=== PATIENT | female | born 1950 | race Caucasian/White ===

== ENCOUNTER 2021-07-13 21:51 | Emergency (ER) | payer MEDICARE, SELFPAY ==
--- NOTE | ~2021-07-13 | XR_ITS ---
EXAMINATION: XR CHEST CLINICAL INFORMATION: Chest pain COMPARISON: 09/06/2018 TECHNIQUE: Frontal view of the chest was obtained. FINDINGS: Other than hypoinflated lungs, no significant abnormality is noted involving the heart, lungs, mediastinum, bony thorax or soft tissues. XR/XR chest 1V IMPRESSION: No acute intrathoracic disease.
[2021-07-13 22:07] VITALS: BP 128/76; PULSE 68; O2SAT 98
--- NOTE | 2021-07-13 22:08 | ECG_ITS ---
Test Reason : MEDICAL Blood Pressure : / mmHG Vent. Rate : 068 BPM Atrial Rate : 068 BPM P-R Int : 198 ms QRS Dur : 074 ms QT Int : 412 ms P-R-T Axes : 059 -12 084 degrees QTc Int : 438 ms Normal sinus rhythm Low voltage QRS Nonspecific ST and T wave abnormality Abnormal ECG When compared with ECG of 06-SEP-2018 18:43, Nonspecific T wave abnormality no longer evident in Inferior leads ST more depressed Lateral leads Referred By: Jas Pastrana Electronically Signed By:SOFI DAVIS MD
--- NOTE | 2021-07-13 22:10 | ED.CHESTPAIN ---
HPI - Chest Pain General Chief Complaint: Chest Pain Stated Complaint: cp Time Seen by Provider: 07/13/21 22:08 Source: patient and EMS Mode of arrival: EMS Limitations: no limitations and physical limitation History of Present Illness HPI narrative: 70-year-old female brought in by ambulance for evaluation of chest pain. This is a 70-year-old female brought in by EMS patient is somewhat poor historian complained of chest pain started about our ago before arrival to the hospital, pain was retrosternal mid chest, no radiation, pain was constant for 1 hour then pain is gone away now, no other associated symptoms, patient has no chest pain now. Patient normally lives home mostly bed-bound needs help with most of the daily activities. Patient with chronic bilateral lower extremities swelling. patient declined any shortness of breath. Related Data Allergies Allergy/AdvReac Type Severity Reaction Status Date / Time No Known Allergies Allergy Unverified 05/07/20 19:37 [No Known Allergies*] Review of Systems Review of Systems: All other systems are reviewed and are negative Constitutional: Reports as per HPI and Reports no additional constitutional complaints Eyes: Reports as per HPI and Reports no additional eye complaints Reports system reviewed and no additional complaints, except as documented Cardiovascular: Reports as per HPI and Reports no additional cardiovascular complaints Respiratory: Reports as per HPI and Reports no additional respiratory complaints Gastrointestinal: Reports as per HPI and Reports no additional gastrointestinal complaints Genitourinary: Reports no additional female genitourinary complaints Musculoskeletal: Reports no additional musculoskeletal complaints Skin/Breast: Reports system reviewed and no additional complaints, except as docu Psychiatric: Reports no additional psychiatric complaints Endocrine: Reports no additional endocrine complaints Hematologic/Lymphatic: Reports no additional hematologic/lymphatic complaints Allergic/Immunologic: Reports no additional allergic/immunologic complaints Reports system reviewed and no additional complaints, except as documented and Reports Abnormal speech present [facility] Social History Social History Advance Directives: No Advance Directives Information Provided: No Physical Exam Vital Signs: Vital Signs: Last Vital Signs Temp 97.8 F 07/13/21 23:30 Pulse 70 07/13/21 23:30 Resp 18 07/13/21 23:30 BP 121/66 07/13/21 23:30 Pulse Ox 93 07/13/21 23:30 Body Mass Index 43.0 vital signs have been reviewed as appeared to be correct. Blood pressure normal. Heart rate normal. Respiration rate normal. Temperature normal. Oxygen saturation normal. Appearance: Alert. Oriented X3. No acute distress. Head: Normal external exam. Normocephalic. Atraumatic. No Godwin signs noted. No raccoon eyes noted Eyes: PERRLA. EOMI. Conjunctiva and sclera normal. Eyelids normal. ENT: TM's Normal. Pharynx normal. Uvula midline. Moist mucous membranes. No trismus noted. No drooling noted. No muffled voice noted. Neck: Normal inspection. Neck supple. FROM. No adenopathy. Thyroid Normal. No meningeal signs. No neck mass noted. CVS: Normal heart rate and rhythm. Heart sound normal. No murmurs noted. Pulses normal throughout. Respiratory: No respiratory distress. Painless inspiration. Breath sounds normal. No wheezes/rales/rhonchi noted. Chest nontender. No accessory muscle usage noted or decreased air movement noted. Abdomen: Soft and nontender. Bowel sounds normal in all 4 quadrants. No distention noted. No organomegaly noted. No visible injury noted. Back: No CVA tenderness. Full range of motion noted. Skin: Skin warm and dry. Normal skin color. Normal skin turgor. No rashes/lesions/lacerations noted. Extremities: No lower extremity edema. Extremities exhibit normal range of motion. Extremities nontender. Neuro: Oriented X 3. Cranial nerve exam: II-XII are grossly intact No motor deficit. No sensory deficit. Reflexes normal. Course Course Course Narrative: assessment and plan. This is a 70-year-old female came in for complain of epigastric /chest pain. While patient in the emergency department she felt chest pain followed by vomiting patient vomited pieces of chicken ( patient has dinner). Patient after she vomited felt better, no chest pain after that. Patient also has a negative workup for chest pain. Will reassure and discharge the patient to follow-up with PCP. MDM - Chest Pain Medical Records Data Attestation: I reviewed the patient's medical records. Lab Data Attestation: I reviewed the patient's lab results. Result diagrams: 07/13/21 23:37 07/13/21 23:37 Labs: Lab Results 07/13/21 07/13/21 07/13/21 Range/Units 23:37 23:37 23:37 WBC 9.7 (4.8-10.8) X10*3/uL RBC 4.35 (4.20-5.50) X10*6/uL Hgb 13.1 (12.0-16.0) g/dl Hct 41.2 (37.0-47.0) % MCV 94.7 (80.0-98.0) fL MCH 30.1 (27.0-33.0) pg MCHC 31.8 (31.0-35.0) g/dl RDW 14.6 (11.0-16.0) % Plt Count 92 L (160-400) X10*3/uL MPV 10.8 (9.4-12.3) fL Immature Gran % (Auto) Cancelled Neut % (Auto) Cancelled Lymph % (Auto) Cancelled Milam % (Auto) Cancelled Eos % (Auto) Cancelled Baso % (Auto) Cancelled Lymph # (Auto) Cancelled Milam # (Auto) Cancelled Eos # (Auto) Cancelled Baso # (Auto) Cancelled Abs Immat Gran (auto) Cancelled Absolute Neuts (auto) Cancelled Absolute Nucleated RBC 0.000 (0.0-0.012) X10*3/uL Nucleated RBC % (auto) 0.0 (0.0-0.2) /100WBC Neutrophils % (Manual) 57 (45-73) % Band Neutrophils % 3 (3-5) % Lymphocytes % (Manual) 31 (20-40) % Monocytes % (Manual) 6 (2-11) % Basophils % (Manual) 1 (0-2) % Promyelocytes % 2 % Abs Neuts (Manual) 5.8 (2.0-8.3) X10*3/uL Lymphocytes # (Manual) 3.0 (1.2-4.9) X10*3/uL Monocytes # (Manual) 0.6 (0.1-1.2) X10*3/uL Basophils # (Manual) 0.1 (0.0-0.2) X10*3/uL Promyelocytes # 0.2 X10*3/uL Toxic Vacuolation PRESENT WBC Morphology Comment HYPOGRANULAR Platelet Estimate DECREASED (NORMAL) Large Platelets PRESENT Giant Platelets PRESENT Plt Morphology Comment AGRANULAR RBC Morphology NORMAL Ovalocytes 1+ (5-14) /OIF Acanthocytes (Spur) 1+ (0-2) /OIF Sodium 138 (135-145) mmol/L Potassium 4.1 (3.3-5.1) mmol/L Chloride 103 (96-108) mmol/L Carbon Dioxide 25 (22-29) mmol/L Anion Gap 14 (12-20) BUN 19 H (9-16) mg/dL Creatinine 0.77 (0.5-1.4) mg/dL Estim Creat Clear Calc 90.1 Estimated GFR > 60 Random Glucose 169 H (60-115) mg/dL Calcium 9.1 (8.4-10.2) mg/dL Total Bilirubin 0.3 (0.0-1.0) mg/dL Direct Bilirubin 0.2 (0.0-0.5) mg/dL AST 30 (5-31) U/L ALT 22 (0-31) U/L Alkaline Phosphatase 65 (39-117) U/L Troponin I High Sens < 3.5 (<3.5-17.0) ng/L B-Natriuretic Peptide 51 (<100) pg/mL Total Protein 6.1 L (6.5-8.0) g/dL Albumin 3.4 L (3.5-5.0) g/dL Lipase 27 (8-78) U/L COVID-19 (GAYLE) (Negative) COVID-19 Clin Com 07/13/21 07/14/21 Range/Units 23:37 02:54 WBC (4.8-10.8) X10*3/uL RBC (4.20-5.50) X10*6/uL Hgb (12.0-16.0) g/dl Hct (37.0-47.0) % MCV (80.0-98.0) fL MCH (27.0-33.0) pg MCHC (31.0-35.0) g/dl RDW (11.0-16.0) % Plt Count (160-400) X10*3/uL MPV (9.4-12.3) fL Immature Gran % (Auto) Neut % (Auto) Lymph % (Auto) Milam % (Auto) Eos % (Auto) Baso % (Auto) Lymph # (Auto) Milam # (Auto) Eos # (Auto) Baso # (Auto) Abs Immat Gran (auto) Absolute Neuts (auto) Absolute Nucleated RBC (0.0-0.012) X10*3/uL Nucleated RBC % (auto) (0.0-0.2) /100WBC Neutrophils % (Manual) (45-73) % Band Neutrophils % (3-5) % Lymphocytes % (Manual) (20-40) % Monocytes % (Manual) (2-11) % Basophils % (Manual) (0-2) % Promyelocytes % % Abs Neuts (Manual) (2.0-8.3) X10*3/uL Lymphocytes # (Manual) (1.2-4.9) X10*3/uL Monocytes # (Manual) (0.1-1.2) X10*3/uL Basophils # (Manual) (0.0-0.2) X10*3/uL Promyelocytes # X10*3/uL Toxic Vacuolation WBC Morphology Comment Platelet Estimate (NORMAL) Large Platelets Giant Platelets Plt Morphology Comment RBC Morphology Ovalocytes /OIF Acanthocytes (Spur) /OIF Sodium (135-145) mmol/L Potassium (3.3-5.1) mmol/L Chloride (96-108) mmol/L Carbon Dioxide (22-29) mmol/L Anion Gap (12-20) BUN (9-16) mg/dL Creatinine (0.5-1.4) mg/dL Estim Creat Clear Calc Estimated GFR Random Glucose (60-115) mg/dL Calcium (8.4-10.2) mg/dL Total Bilirubin (0.0-1.0) mg/dL Direct Bilirubin (0.0-0.5) mg/dL AST (5-31) U/L ALT (0-31) U/L Alkaline Phosphatase (39-117) U/L Troponin I High Sens < 3.5 (<3.5-17.0) ng/L B-Natriuretic Peptide (<100) pg/mL Total Protein (6.5-8.0) g/dL Albumin (3.5-5.0) g/dL Lipase (8-78) U/L COVID-19 (GAYLE) Negative (Negative) COVID-19 Clin Com See Note Imaging Data Chest x-ray: Radiologist's impression: No acute intrathoracic disease. ECG Data ECG #1: Interpretation: normal sinus rhythm at 68 beats per minute, left axis deviation, normal intervals, nonspecific ST-T changes. Discharge Plan Discharge Clinical Impression: Atypical chest pain, Gastritis Patient Disposition: Home, Self-Care Instructions: Chest Pain (ED) Referrals: Physician,Unknown J [Primary Care Provider] - 2 days
--- NOTE | 2021-07-13 22:58 | PC.NURSE ---
PATIENT CAME IN VOMITED [place] ,DARLEEN ROJAS AWARE ,PATIENT WAS CLEAN UP AND CHANGE INTO HOSPITAL ATTIRE ,EKG WAS OBTAIN .
[2021-07-13 23:30] VITALS: BP 121/66; PULSE 70; RESP 18; TEMP 36.6; O2SAT 93; BMI 43.0
--- NOTE | 2021-07-13 23:37 | PC.NURSE ---
RN receivd from report from Twyla MOREJON upon arrival at 2300. This RN was made aware that the patient presented with chest pain and everything was complete. During chart review this RN was able to confirm that only the EMS report was completed but no triage or additional documentaton; pt with #20 in the left hand placed by clinical coordinator. Triage to be completed. Pt was not noted to be on a quality assurance monitor body or zole. EDT obtained ordered labs and will assist with placing the pt on the quality assurance monitor body. RN will continue to monitor.
[2021-07-13 23:43] LABS: Mean Corpuscular HGB Conc 31.8 g/dl (31.0-35.0); Mean Corpuscular Hemoglobin 30.1 pg (27.0-33.0); PLT CLUMP 1
[2021-07-13 23:45] LABS: Hematocrit 41.2 % (37.0-47.0); Hemoglobin 13.1 g/dl (12.0-16.0); Mean Corpuscular Volume 94.7 fL (80.0-98.0); Mean Platelet Volume 10.8 fL (9.4-12.3); Red Blood Count 4.35 X10*6/uL (4.20-5.50); Red Cell Distribution Width 14.6 % (11.0-16.0); White Blood Count 9.7 X10*3/uL (4.8-10.8)
[2021-07-13 23:48] LABS: Platelet Count 92 X10*3/uL (160-400)
[2021-07-13 23:58] LABS: Alanine Aminotransferase 22 U/L (0-31); Albumin Level 3.4 g/dL (3.5-5.0); Alkaline Phosphatase 65 U/L (39-117); Anion Gap 14 (12-20); Aspartate Amino Transferase 30 U/L (5-31); Bilirubin Direct 0.2 mg/dL (0.0-0.5); Bilirubin Total 0.3 mg/dL (0.0-1.0); Blood Urea Nitrogen 19 mg/dL (9-16); Calcium 9.1 mg/dL (8.4-10.2); Carbon Dioxide 25 mmol/L (22-29); Chloride 103 mmol/L (96-108); Creatinine Clr Calc Pharmacy 90.1; Estimated Glomerular Filt Rate > 60; Glucose Random 169 mg/dL (60-115); Lipase 27 U/L (8-78); Potassium 4.1 mmol/L (3.3-5.1); Sodium 138 mmol/L (135-145); Total Protein 6.1 g/dL (6.5-8.0)
[2021-07-14] LABS: COVID-19 Test Negative (Negative); IDNOW Serial# 9DD0AD1C
[2021-07-14 00:03] LABS: B Type Natriuretic Peptide 51 pg/mL (<100); Troponin-I High Sensitivity < 3.5 ng/L (<3.5-17.0)
[2021-07-14 01:03] LABS: Band Neutrophils Percent 3 % (3-5); Basophils Abs Manual 0.1 X10*3/uL (0.0-0.2); Basophils Percent Manual 1 % (0-2); Lymphocytes Percent Manual 31 % (20-40); Monocytes Absolute Manual 0.6 X10*3/uL (0.1-1.2); Monocytes Percent Manual 6 % (2-11); Neutrophils Absolute Manual 5.8 X10*3/uL (2.0-8.3); Neutrophils Percent Manual 57 % (45-73); Promyelocytes Absolute 0.2 X10*3/uL; Promyelocytes Percent 2 %
[2021-07-14 01:04] LABS: Acanthocytes 1+ (0-2) /OIF; Giant Platelet PRESENT; Large Platelet PRESENT; Ovalocytes 1+ (5-14) /OIF; Platelet Estimate DECREASED (NORMAL); Platelet Morphology Comment AGRANULAR; RBC Morphology NORMAL; Toxic Vacuolation PRESENT
[2021-07-14 01:05] LABS: WBC Morphology Comment HYPOGRANULAR
[2021-07-14] MEDS: ondansetron HCL 4 MG/2 ML VIAL IVPUSH (01:35)
[2021-07-14] MEDS: Famotidine/PF 20 MG/2 ML VIAL IVPUSH (01:35)
--- NOTE | 2021-07-14 02:02 | PC.NURSE ---
Pt given pillows to elevate lower extremeities per request. Pt was previously spoon fed applesauce by this RN and assisted holding the cup while she drank gingerale. Pt repositioned for comfort
[2021-07-14 03:18] LABS: Troponin-I High Sensitivity < 3.5 ng/L (<3.5-17.0)
== END 2021-07-14 05:27 | disposition home or self-care (01) ==
PROVIDERS: Emergency Provider Emergency Medicine
DX: R07.9 Chest pain, unspecified (principal); K29.70 Gastritis, unspecified, without bleeding; Z79.899 Other long term (current) drug therapy; Z20.822 Contact with and (suspected) exposure to COVID-19
CPT/HCPCS: 36415; 71045; 80048; 80076; 83690; 83880; 84484; 85007; 85027; 87635; 93005; 96374; 96375; 99284; J2405

== ENCOUNTER 2021-09-08 17:58 | Inpatient (IN) | payer MEDICARE, SELFPAY ==
[2021-09-08] VITALS (7 sets, daily range): BP systolic 96–159; BP diastolic 60–91; PULSE 79–89; RESP 12–20; TEMP 37.3–38.2; O2SAT 94–97; BMI 43.7
--- NOTE | ~2021-09-08 | CT_ITS ---
EXAMINATION: CT HEAD WITHOUT CONTRAST (STROKE PROTOCOL) CLINICAL INFORMATION: Stroke protocol. Left-sided weakness. COMPARISON: CT brain 09/06/2018. TECHNIQUE: Contiguous axial imaging was performed from the skull base to vertex without intravenous administration of contrast. This CT examination was performed using dose optimization techniques as appropriate, variously including the following: *Automated exposure control *Adjustment of mA and/or kV according to patient size (this includes techniques or standardized protocols for targeted exams where dose is matched to indication/reason for exam; i.e. extremities or head) *Use of iterative reconstruction technique DLP: 1767 mGy-cm FINDINGS: There is no acute intra-axial, extra-axial bleed, masses or midline shift. There is a left occipital lobe hypodensity with extra-axial dilatation likely old insult or infarct. There is left occipital small craniectomy. Also visualized is a old right posterior parietal lobe infarct. There is no acute infarction in evolution. There is no midline shift. There is ex-vacuole dilatation of occipital horn left lateral ventricle. The lateral ventricles are moderately enlarged. The third ventricle is enlarged as well. No abnormality seen in the posterior fossa. Bone windows reveal no calvarial abnormality except for left occipital lobe craniectomy. No scalp soft tissue abnormality or hematoma. Bilateral paranasal sinuses and mastoid air cells are well-aerated. CT/CT head for stroke IMPRESSION: No acute intracranial process seen. There is a encephalomalacia and gliosis in the left occipital lobe and high right posterior parietal lobe from previous insult. Also visualized is left occipital craniectomy changes. The sinuses are clear. Overall no major change from 09/06/2028 CT PET exam. Results were discussed immediately with ED Dr. Parmjit Cam by phone at 6:27 PM .
--- NOTE | 2021-09-08 18:07 | ECG_ITS ---
Test Reason : AMS Blood Pressure : / mmHG Vent. Rate : 080 BPM Atrial Rate : 080 BPM P-R Int : 196 ms QRS Dur : 076 ms QT Int : 386 ms P-R-T Axes : 023 -14 068 degrees QTc Int : 445 ms Normal sinus rhythm Low voltage QRS Nonspecific ST and T wave abnormality Abnormal ECG When compared with ECG of 13-JUL-2021 22:55, No significant change was found Referred By: Favio Cam Electronically Signed By:Jamil Correia
[2021-09-08 18:14] LABS: Glucose, Whole Blood 148 mg/dL (60-115); Prothrombin Time Whole Bld POC 14.2 sec (11.1-13.5); ~PT, ~INR - Anti Coag Clinic 1.2 (0.9-1.1)
--- NOTE | 2021-09-08 18:36 | ED.NEUROSD ---
HPI - Neuro Symptoms/Deficit General Chief Complaint: Stroke Stated Complaint: STROKE/AMS Time Seen by Provider: 09/08/21 18:06 Source: EMS Mode of arrival: EMS Limitations: altered mental status History of Present Illness HPI Narrative: 71 year old female who was brought to the emergency department by ambulance for possible stroke. The patient is altered and not able to give a history, she was able to tell me her name. According to the paramedics, the patient's CANVAS REPAIRER came to the patient's house around 4:00 p.m. and found the patient to be altered, the patient was having left-sided weakness and slurred speech. The paramedics know this patient well states that the patient is altered from her baseline, usually she is awake and alert and able to answer questions. The patient does not have a last known well time. I did evaluate the patient on the senior buyer planner stretcher, the patient is lethargic, she is able to tell me her name, she appears to have right upper extremity weakness compared to the left with swelling of the right upper extremity, she seems to have atrophy your lower extremities and cannot move either her left or right lower extremity. Given these findings, the patient was sent directly to the CT scan to rule out stroke, bleed, mass effect. Related Data Allergies Allergy/AdvReac Type Severity Reaction Status Date / Time No Known Allergies Allergy Unverified 05/07/20 19:37 [No Known Allergies*] Review of Systems Review of Systems: Yes Unobtainable due to mental status [facility] Past Medical History [facility] Narrative: Past medical history: Unknown. Social history: The patient lives at home with CANVAS REPAIRER care. Medical History (Updated 09/08/21 @ 20:46 by Favio Cam MD) Diabetes Social History Social History Patient Tobacco Use Status: Never used Tobacco Use of substances other than those prescribed or required for medical reasons: No Advance Directives: No Advance Directives Information Provided: Yes Physical Exam Vital Signs: Vital Signs: Last Vital Signs Temp 100.7 F H 09/08/21 18:30 Pulse 79 09/08/21 20:03 Resp 14 09/08/21 20:03 BP 101/74 09/08/21 20:03 Pulse Ox 96 09/08/21 20:03 BMI result Body Mass Index 43.7 Const: Other: Patient is lethargic, she was only able to tell me her name and not answer any other questions HENMT: Head: Yes normal to inspection, Yes normocephalic and Yes atraumatic Ears: external ears normal General nose exam: Normal external nose present Face and sinus: Yes normal facial exam Mouth: Normal oral and palatal mucosa present Throat: Yes posterior oropharynx normal Eyes: General: appearance normal, both eyes and all related structures Neck: Neck: Yes normal visual inspection, Yes no lymphadenopathy, Yes trachea midline and Yes supple Chest: Chest palpation & inspection: normal inspection of the chest and normal palpation of entire chest wall Resp: Effort & Inspection: normal respiratory effort and able to speak in complete sentences Auscultation: clear to auscultation bilaterally Cardio: Rate: regular rate Rhythm: regular rhythm Heart sounds: S1 normal heart sound present, S2 normal heart sound present and no murmurs GI: Inspection: Yes normal to inspection Palpation (GI): Soft to palpation, nontender and no guarding Auscultation: normal bowel sounds : General: Yes no CVA tenderness Back/Spine/Pelvis: Back: no CVA tenderness Skin: General skin exam: no rashes or lesions noted Neuro: Other: Patient is oriented to person only, she is lethargic, she can wiggle the fingers of her left hand but not the right, she has limited ability to move her left arm up against gravity, she cannot move her lower extremities against gravity in her lower extremities appear to be atrophied Extrem: Other: Swelling of the right upper extremity compared to the left, the lower extremities Psych: Other: Lethargic, oriented to person only Course Course Course Narrative: 71-year-old female who lives at home with CANVAS REPAIRER care who was last well-known time is unknown, CANVAS REPAIRER found to hurt around 4:00 p.m. altered, lethargic. On presentation to the emergency department the patient was lethargic and can not give me her name only. Her right upper extremity appears to be swollen compared to the left she has no movement of the right arm, she is able to move the fingers of the left hand but not older left hand up against gravity. She also has no movement of her lower extremities and her lower extremities appear to be atrophied suggesting that she has chronic weakness of these extremities. Vital signs revealed that the patient had a fever of 100.4? orally and 100.7? rectally. Blood pressure was elevated at 150 9/71. NIH stroke scale was unable to be obtained since the patient could not cooperate with the exam given her lethargy. CT scan of the patient's head without IV contrast revealed old strokes but no acute bleed or stroke according to the radiologist. At this time, I suspect that the patient's presentation is consistent with an infectious process. I did order laboratory evaluation. Patient will be given Tylenol 975 mg orally if she passes a swallow test. 2028: Laboratory evaluation: normal 7900, platelet count was 56257, this is chronic. PT/INR and PTT were normal. BUN was elevated 21, glucose was elevated 170, AST was elevated 39. CK was normal. Urinalysis revealed a concentrated urine with a specific gravity greater than 1.030, microscopic revealed 2 RBCs, 0 WBCs and no bacteria. COVID is positive. I did discuss the patient's presentation with the covering hospitalist, given her altered level of consciousness, she will be admitted for further diagnostic workup. Given her history of strokes in the past, it is possible she may have had a stroke but I think this is less likely and given that her last well-known time was unknown she does not qualify for tPA. Her symptoms are more consistent with volume depletion/dehydration secondary to COVID-19 infection. At this time, she is not hypoxic with O2 saturations of 95-96% on room air. MDM - Neuro Symptoms/Deficit Lab Data Result diagrams: 09/08/21 19:03 09/08/21 19:03 Labs: Lab Results 09/08/21 09/08/21 09/08/21 Range/Units 18:09 18:09 19:03 WBC (4.8-10.8) X10*3/uL RBC (4.20-5.50) X10*6/uL Hgb (12.0-16.0) g/dl Hct (37.0-47.0) % MCV (80.0-98.0) fL MCH (27.0-33.0) pg MCHC (31.0-35.0) g/dl RDW (11.0-16.0) % Plt Count (160-400) X10*3/uL MPV (9.4-12.3) fL Immature Gran % (Auto) Neut % (Auto) Lymph % (Auto) [place] % (Auto) Eos % (Auto) Baso % (Auto) Lymph # (Auto) [place] # (Auto) Eos # (Auto) Baso # (Auto) Abs Immat Gran (auto) Absolute Neuts (auto) Absolute Nucleated RBC (0.0-0.012) X10*3/uL Nucleated RBC % (auto) (0.0-0.2) /100WBC Neutrophils % (Manual) (45-73) % Band Neutrophils % (3-5) % Lymphocytes % (Manual) (20-40) % Monocytes % (Manual) (2-11) % Eosinophils % (Manual) (0-4) % Abs Neuts (Manual) (2.0-8.3) X10*3/uL Lymphocytes # (Manual) (1.2-4.9) X10*3/uL Monocytes # (Manual) (0.1-1.2) X10*3/uL Eosinophils # (Manual) (0.0-0.4) X10*3/uL Nucleated RBCs (0-0) /100WBC Platelet Estimate (NORMAL) Plt Morphology Comment RBC Morphology PT (9.9-13.0) SEC Whole Blood PT 14.2 H (11.1-13.5) sec INR (0.9-1.1) Whole Blood INR 1.2 H (0.9-1.1) APTT (24.1-38.0) SEC Sodium 139 (135-145) mmol/L Potassium 4.3 (3.3-5.1) mmol/L Chloride 102 (96-108) mmol/L Carbon Dioxide 25 (22-29) mmol/L Anion Gap 16 (12-20) BUN 21 H (9-16) mg/dL Creatinine 0.82 (0.5-1.4) mg/dL Estim Creat Clear Calc 78.5 Estimated GFR > 60 POC Glucose 148 H (60-115) mg/dL Random Glucose 170 H (60-115) mg/dL Lactic Acid (0.5-2.0) mmol/L Calcium 9.4 (8.4-10.2) mg/dL Total Bilirubin 0.5 (0.0-1.0) mg/dL Direct Bilirubin 0.2 (0.0-0.5) mg/dL AST 39 H (5-31) U/L ALT 23 (0-31) U/L Alkaline Phosphatase 70 (39-117) U/L Total Creatine Kinase 16 L (26-140) U/L Troponin I High Sens (<3.5-17.0) ng/L Total Protein 6.2 L (6.5-8.0) g/dL Albumin 3.3 L (3.5-5.0) g/dL Urine Color Urine Appearance Urine pH (5.0-8.0) Ur Specific [place] (1.005-1.025) Urine Protein (NEG-TRACE) MG/DL Urine Glucose (UA) (NEG) MG/DL Urine Ketones (NEG) MG/DL Urine Blood (NEG) Urine Nitrite (NEG) Ur Leukocyte Esterase (NEG) Urine RBC (0) /HPF Urine WBC (0-4) /HPF Ur Squamous Epith Cells /LPF Amorphous Sediment /LPF Urine Bacteria /LPF Urine Mucus /LPF COVID-19 (GAYLE) (Negative) COVID-19 Clin Com 09/08/21 09/08/21 09/08/21 Range/Units 19:03 19:03 19:03 WBC 7.9 (4.8-10.8) X10*3/uL RBC 4.24 (4.20-5.50) X10*6/uL Hgb 13.2 (12.0-16.0) g/dl Hct 40.8 (37.0-47.0) % MCV 96.2 (80.0-98.0) fL MCH 31.1 (27.0-33.0) pg MCHC 32.4 (31.0-35.0) g/dl RDW 15.7 (11.0-16.0) % Plt Count 81 L (160-400) X10*3/uL MPV 10.2 (9.4-12.3) fL Immature Gran % (Auto) Cancelled Neut % (Auto) Cancelled Lymph % (Auto) Cancelled [place] % (Auto) Cancelled Eos % (Auto) Cancelled Baso % (Auto) Cancelled Lymph # (Auto) Cancelled [place] # (Auto) Cancelled Eos # (Auto) Cancelled Baso # (Auto) Cancelled Abs Immat Gran (auto) Cancelled Absolute Neuts (auto) Cancelled Absolute Nucleated RBC 0.000 (0.0-0.012) X10*3/uL Nucleated RBC % (auto) 0.0 (0.0-0.2) /100WBC Neutrophils % (Manual) 60 (45-73) % Band Neutrophils % 9 H (3-5) % Lymphocytes % (Manual) 18 L (20-40) % Monocytes % (Manual) 12 H (2-11) % Eosinophils % (Manual) 1 (0-4) % Abs Neuts (Manual) 5.5 (2.0-8.3) X10*3/uL Lymphocytes # (Manual) 1.4 (1.2-4.9) X10*3/uL Monocytes # (Manual) 0.9 (0.1-1.2) X10*3/uL Eosinophils # (Manual) 0.1 (0.0-0.4) X10*3/uL Nucleated RBCs 1 H (0-0) /100WBC Platelet Estimate DECREASED (NORMAL) Plt Morphology Comment NORMAL RBC Morphology NORMAL PT 11.4 (9.9-13.0) SEC Whole Blood PT (11.1-13.5) sec INR 1.0 (0.9-1.1) Whole Blood INR (0.9-1.1) APTT 32.7 (24.1-38.0) SEC Sodium (135-145) mmol/L Potassium (3.3-5.1) mmol/L Chloride (96-108) mmol/L Carbon Dioxide (22-29) mmol/L Anion Gap (12-20) BUN (9-16) mg/dL Creatinine (0.5-1.4) mg/dL Estim Creat Clear Calc Estimated GFR POC Glucose (60-115) mg/dL Random Glucose Cancelled (60-115) mg/dL Lactic Acid (0.5-2.0) mmol/L Calcium (8.4-10.2) mg/dL Total Bilirubin (0.0-1.0) mg/dL Direct Bilirubin (0.0-0.5) mg/dL AST (5-31) U/L ALT (0-31) U/L Alkaline Phosphatase (39-117) U/L Total Creatine Kinase (26-140) U/L Troponin I High Sens (<3.5-17.0) ng/L Total Protein (6.5-8.0) g/dL Albumin (3.5-5.0) g/dL Urine Color Urine Appearance Urine pH (5.0-8.0) Ur Specific [place] (1.005-1.025) Urine Protein (NEG-TRACE) MG/DL Urine Glucose (UA) (NEG) MG/DL Urine Ketones (NEG) MG/DL Urine Blood (NEG) Urine Nitrite (NEG) Ur Leukocyte Esterase (NEG) Urine RBC (0) /HPF Urine WBC (0-4) /HPF Ur Squamous Epith Cells /LPF Amorphous Sediment /LPF Urine Bacteria /LPF Urine Mucus /LPF COVID-19 (GAYLE) (Negative) COVID-19 Clin Com 09/08/21 09/08/21 09/08/21 Range/Units 19:03 19:03 19:24 WBC (4.8-10.8) X10*3/uL RBC (4.20-5.50) X10*6/uL Hgb (12.0-16.0) g/dl Hct (37.0-47.0) % MCV (80.0-98.0) fL MCH (27.0-33.0) pg MCHC (31.0-35.0) g/dl RDW (11.0-16.0) % Plt Count (160-400) X10*3/uL MPV (9.4-12.3) fL Immature Gran % (Auto) Neut % (Auto) Lymph % (Auto) [place] % (Auto) Eos % (Auto) Baso % (Auto) Lymph # (Auto) [place] # (Auto) Eos # (Auto) Baso # (Auto) Abs Immat Gran (auto) Absolute Neuts (auto) Absolute Nucleated RBC (0.0-0.012) X10*3/uL Nucleated RBC % (auto) (0.0-0.2) /100WBC Neutrophils % (Manual) (45-73) % Band Neutrophils % (3-5) % Lymphocytes % (Manual) (20-40) % Monocytes % (Manual) (2-11) % Eosinophils % (Manual) (0-4) % Abs Neuts (Manual) (2.0-8.3) X10*3/uL Lymphocytes # (Manual) (1.2-4.9) X10*3/uL Monocytes # (Manual) (0.1-1.2) X10*3/uL Eosinophils # (Manual) (0.0-0.4) X10*3/uL Nucleated RBCs (0-0) /100WBC Platelet Estimate (NORMAL) Plt Morphology Comment RBC Morphology PT (9.9-13.0) SEC Whole Blood PT (11.1-13.5) sec INR (0.9-1.1) Whole Blood INR (0.9-1.1) APTT (24.1-38.0) SEC Sodium (135-145) mmol/L Potassium (3.3-5.1) mmol/L Chloride (96-108) mmol/L Carbon Dioxide (22-29) mmol/L Anion Gap (12-20) BUN (9-16) mg/dL Creatinine (0.5-1.4) mg/dL Estim Creat Clear Calc Estimated GFR POC Glucose (60-115) mg/dL Random Glucose (60-115) mg/dL Lactic Acid 1.9 (0.5-2.0) mmol/L Calcium (8.4-10.2) mg/dL Total Bilirubin (0.0-1.0) mg/dL Direct Bilirubin (0.0-0.5) mg/dL AST (5-31) U/L ALT (0-31) U/L Alkaline Phosphatase (39-117) U/L Total Creatine Kinase (26-140) U/L Troponin I High Sens < 3.5 (<3.5-17.0) ng/L Total Protein (6.5-8.0) g/dL Albumin (3.5-5.0) g/dL Urine Color YELLOW Urine Appearance CLEAR Urine pH 5.5 (5.0-8.0) Ur Specific [place] >= 1.030 H (1.005-1.025) Urine Protein 1+ H (NEG-TRACE) MG/DL Urine Glucose (UA) NEG (NEG) MG/DL Urine Ketones NEG (NEG) MG/DL Urine Blood NEG (NEG) Urine Nitrite NEG (NEG) Ur Leukocyte Esterase NEG (NEG) Urine RBC 0-2 (0) /HPF Urine WBC 0 (0-4) /HPF Ur Squamous Epith Cells 1+ /LPF Amorphous Sediment TRACE /LPF Urine Bacteria NONE /LPF Urine Mucus 1+ /LPF COVID-19 ([facility]YLE) (Negative) COVID-19 Clin Com 09/08/21 Range/Units 20:09 WBC (4.8-10.8) X10*3/uL RBC (4.20-5.50) X10*6/uL Hgb (12.0-16.0) g/dl Hct (37.0-47.0) % MCV (80.0-98.0) fL MCH (27.0-33.0) pg MCHC (31.0-35.0) g/dl RDW (11.0-16.0) % Plt Count (160-400) X10*3/uL MPV (9.4-12.3) fL Immature Gran % (Auto) Neut % (Auto) Lymph % (Auto) [place] % (Auto) Eos % (Auto) Baso % (Auto) Lymph # (Auto) [place] # (Auto) Eos # (Auto) Baso # (Auto) Abs Immat Gran (auto) Absolute Neuts (auto) Absolute Nucleated RBC (0.0-0.012) X10*3/uL Nucleated RBC % (auto) (0.0-0.2) /100WBC Neutrophils % (Manual) (45-73) % Band Neutrophils % (3-5) % Lymphocytes % (Manual) (20-40) % Monocytes % (Manual) (2-11) % Eosinophils % (Manual) (0-4) % Abs Neuts (Manual) (2.0-8.3) X10*3/uL Lymphocytes # (Manual) (1.2-4.9) X10*3/uL Monocytes # (Manual) (0.1-1.2) X10*3/uL Eosinophils # (Manual) (0.0-0.4) X10*3/uL Nucleated RBCs (0-0) /100WBC Platelet Estimate (NORMAL) Plt Morphology Comment RBC Morphology PT (9.9-13.0) SEC Whole Blood PT (11.1-13.5) sec INR (0.9-1.1) Whole Blood INR (0.9-1.1) APTT (24.1-38.0) SEC Sodium (135-145) mmol/L Potassium (3.3-5.1) mmol/L Chloride (96-108) mmol/L Carbon Dioxide (22-29) mmol/L Anion Gap (12-20) BUN (9-16) mg/dL Creatinine (0.5-1.4) mg/dL Estim Creat Clear Calc Estimated GFR POC Glucose (60-115) mg/dL Random Glucose (60-115) mg/dL Lactic Acid (0.5-2.0) mmol/L Calcium (8.4-10.2) mg/dL Total Bilirubin (0.0-1.0) mg/dL Direct Bilirubin (0.0-0.5) mg/dL AST (5-31) U/L ALT (0-31) U/L Alkaline Phosphatase (39-117) U/L Total Creatine Kinase (26-140) U/L Troponin I High Sens (<3.5-17.0) ng/L Total Protein (6.5-8.0) g/dL Albumin (3.5-5.0) g/dL Urine Color Urine Appearance Urine pH (5.0-8.0) Ur Specific [place] (1.005-1.025) Urine Protein (NEG-TRACE) MG/DL Urine Glucose (UA) (NEG) MG/DL Urine Ketones (NEG) MG/DL Urine Blood (NEG) Urine Nitrite (NEG) Ur Leukocyte Esterase (NEG) Urine RBC (0) /HPF Urine WBC (0-4) /HPF Ur Squamous Epith Cells /LPF Amorphous Sediment /LPF Urine Bacteria /LPF Urine Mucus /LPF COVID-19 (GAYLE) Positive A (Negative) COVID-19 Clin Com See Note Critical Care Time Critical Care Time Critical Care Time: Yes Total Critical Care Time: 55 Attestation: Critical Care: The patient was critically ill with a high probability of imminent or life threatening deterioration. I spent greater than 30 minutes of discontinuous time evaluating the patient,delivering critical care at the bedside, discussing and evaluating pertinent data with consultants. Critical care time does not include time spent performing separately billable procedures or teaching. Total time spent performing critical care was 55 minutes. Discharge Plan Discharge Clinical Impression: Acute alteration in mental status, Fever, COVID-19 virus infection
[2021-09-08 19:11] LABS: Hematocrit 40.8 % (37.0-47.0); Hemoglobin 13.2 g/dl (12.0-16.0); Mean Corpuscular HGB Conc 32.4 g/dl (31.0-35.0); Mean Corpuscular Hemoglobin 31.1 pg (27.0-33.0); Mean Corpuscular Volume 96.2 fL (80.0-98.0); PLT CLUMP 1; Red Blood Count 4.24 X10*6/uL (4.20-5.50); Red Cell Distribution Width 15.7 % (11.0-16.0)
[2021-09-08 19:13] LABS: Mean Platelet Volume 10.2 fL (9.4-12.3)
[2021-09-08 19:16] LABS: Prothrombin Time 11.4 SEC (9.9-13.0)
[2021-09-08 19:19] LABS: Partial Thromboplastin Time 32.7 SEC (24.1-38.0)
[2021-09-08 19:20] LABS: Lactic Acid 1.9 mmol/L (0.5-2.0)
[2021-09-08 19:29] LABS: Alanine Aminotransferase 23 U/L (0-31); Albumin Level 3.3 g/dL (3.5-5.0); Alkaline Phosphatase 70 U/L (39-117); Anion Gap 16 (12-20); Aspartate Amino Transferase 39 U/L (5-31); Bilirubin Direct 0.2 mg/dL (0.0-0.5); Bilirubin Total 0.5 mg/dL (0.0-1.0); Blood Urea Nitrogen 21 mg/dL (9-16); Calcium 9.4 mg/dL (8.4-10.2); Carbon Dioxide 25 mmol/L (22-29); Chloride 102 mmol/L (96-108); Creatinine Clr Calc Pharmacy 78.5; Estimated Glomerular Filt Rate > 60; Glucose Random 170 mg/dL (60-115); Potassium 4.3 mmol/L (3.3-5.1); Sodium 139 mmol/L (135-145); Total Protein 6.2 g/dL (6.5-8.0)
[2021-09-08 19:30] LABS: Appearance Urine CLEAR; Color Urine YELLOW; Glucose Urine UA NEG (NEG); Leukocyte Esterase Urine NEG (NEG); Nitrite Urine NEG (NEG); PH 5.5 (5.0-8.0); Specific Gravity - Urine >= 1.030 (1.005-1.025); UACC Culture Trigger NO; Urine Blood NEG (NEG); Urine Ketones NEG (NEG); Urine Protein 1+ MG/DL (NEG-TRACE)
[2021-09-08 19:31] LABS: Troponin-I High Sensitivity < 3.5 ng/L (<3.5-17.0)
[2021-09-08 19:35] LABS: Platelet Count 81 X10*3/uL (160-400); White Blood Count 7.9 X10*3/uL (4.8-10.8)
[2021-09-08 19:39] LABS: Band Neutrophils Percent 9 % (3-5); Eosinophils Absolute Manual 0.1 X10*3/uL (0.0-0.4); Eosinophils Percent Manual 1 % (0-4); Lymphocytes Absolute Manual 1.4 X10*3/uL (1.2-4.9); Lymphocytes Percent Manual 18 % (20-40); Monocytes Absolute Manual 0.9 X10*3/uL (0.1-1.2); Monocytes Percent Manual 12 % (2-11); Neutrophils Absolute Manual 5.5 X10*3/uL (2.0-8.3); Neutrophils Percent Manual 60 % (45-73); Nucleated Red Blood Cells 1 /100WBC (0-0); Platelet Estimate DECREASED (NORMAL); Platelet Morphology Comment NORMAL; RBC Morphology NORMAL
[2021-09-08 19:48] LABS: Mucus Urine 1+ /LPF; Squamous Epithelial Cell Urine 1+ /LPF
[2021-09-08 19:49] LABS: Amorphous Sediment Urine TRACE /LPF; RBC Urine 0-2 /HPF (0)
[2021-09-08] MEDS: 0.9 % Sodium Chloride 1,000 ML 999 ML IV (19:49)
[2021-09-08 19:50] LABS: WBC Urine 0 /HPF (0-4)
[2021-09-08] MEDS: Acetaminophen 325 MG TABLET 975 MG PO (19:50)
[2021-09-08 19:51] LABS: Stroke Lab Use COMPLETE
--- NOTE | 2021-09-08 20:00 | PC.NURSE ---
Assumed care of pt at 1900. Pt awake and alert, unable to answer orientation questions; responds to voice, follows commands. Per day shift RN, swallow screen was complete and pt able to safely tolerate PO intake. Pt medicated as documented per OCT by this RN. Noted to have coughing and gagging s/p tylenol administration. O2 stable. notified
--- NOTE | 2021-09-08 20:17 | PC.NURSE ---
Pt O2 sat intermittently decreasing to 88% on RA, placed on 2L O2 via NC w/ increase to > 95%
[2021-09-08 20:23] LABS: COVID-19 Test Positive (Negative)
[2021-09-08] MEDS: cefTRIAXone sodium 2 GM in 0.9 % Sodium Chloride 50 ML IV (20:31)
--- NOTE | 2021-09-08 20:48 | PC.NURSE ---
Pt HCP Queen Dung updated via phone on COVID+ status and plan for admission. Phone number [phone]. Requesting to be kept updated on status and plan
--- NOTE | 2021-09-08 21:37 | P.HPHOSP_ITS ---
History of Present Illness Date of Service: 09/08/21 Chief Complaint: altered mental status 71-year-old female with a past medical history of hypertension, hyperlipidemia, diabetes, hypothyroidism, lives alone has home [employer] visits regularly; presented to the hospital today with a chief complaint of altered mental status. Patient is alert and awake, follows simple commands, able to tell her name but otherwise not able to provide any further history. Most of the history obtained from the ER staff. No phone numbers /primary contact details. Reportedly patient was found by the PCS on their visit today that she has altered; usually patient is not altered at her baseline and on service the questions fairly appropriately; EMS also reported the same who knows her with frequent visits to her house for helping her to get up. also mentioned that patient reported to the [employer] that she has been having head aches over the past couple days; no mention of any fall, trauma or injury. Review of all other systems is limited as the patient is altered. ER course: Per ER team patient on presentation noted to be very altered; CT head showed chronic findings consistent with encephalomalacia; no acute intracranial process. Labs essentially benign; COVID-19 came back positive patient was also noted to be febrile. Chest x-ray negative urinalysis negative. Neurological exam is limited as patient was not able to follow commands initially admitted for further management PMH: [phone] Educational Therapist Zonia Gregory Abnormal brain MRI - includes encephalomalacia, trauma related findings, and insular infarcts 2016 Aneurysm, thoracic 3.7 cm Anomia Asthma Cervical spinal stenosis CHF - Congestive heart failure Closed compression fracture of body of first lumbar vertebra Compression fracture of thoracic vertebra DD (diverticular disease) Depression Diabetes mellitus Diabetic nephropathy Diastolic dysfunction Dilatation of thoracic aorta; [address], stable Dysphagia inpatient recommended nectar-thick liquids EEG abnormal: Diffuse Cerebral Dysfunction Encephalomalacia (at least by 2011, and seen again on 2016 MRI - both supratentorial and infratentorial) Fall Folic acid deficiency Foot deformity Glaucoma Healthcare proxy Hearing Loss History of esophagogastroduodenoscopy (EGD) Hypercholesterolemia Hypertension Hypothyroid Illiteracy Impaired fasting glycaemia Impaired glucose tolerance Insomnia Microalbuminuria NAFLD (nonalcoholic fatty liver disease) Nasal septum perforation Obesity associated disorder Observed seizure-like activity Obstructive sleep apnea.moderate, declines treatment Osteoarthritis of spine Osteopenia Oxygen desaturation during sleep: 21 minutes below 88% PTSD - Post-traumatic stress disorder Sacroiliac joint Speech impairment Spinal Stenosis of Cervical Region Tardive dyskinesia - while on abilify Thrombocytopenia, mild, to follow per Neurology Urinary incontinence, mixed Varicose veins (also seen on knee x-ray) Venous stasis syndrome Vitamin D deficiency Weakness [facility] Medical History (Updated 09/08/21 @ 21:37 by Dontrell Romero MD) Diabetes Pertinent family history: Patient unable to provide information Social History Patient Tobacco Use Status: Never used Tobacco Use of substances other than those prescribed or required for medical reasons: No Advance Directives: No Advance Directives Information Provided: Yes Meds Allergies Allergy/AdvReac Type Severity Reaction Status Date / Time No Known Allergies Allergy Unverified 05/07/20 19:37 [No Known Allergies*] Active Medications: Current Medications Acetaminophen (Acetaminophen 325 Mg Tablet) 650 mg PO Q6H PRN PRN Reason: Pain, Mild (Pain Scale 1-3) Enoxaparin Sodium (Enoxaparin Sodium 40 Mg/0.4 Ml Syringe) 40 mg SUBCUT Q24H [facility] Melatonin (Melatonin 3 Mg Tablet) 6 mg PO BEDTIME PRN PRN Reason: Insomnia Senna (Sennosides 8.6 Mg Tablet) 17.2 mg PO BEDTIME PRN PRN Reason: Constipation Sodium Chloride (0.9 % Sodium Chloride Flush 3 Ml Syringe) 3 ml IVFLUSH QSHIFT [facility] Home Medications Medication Instructions Recorded Confirmed Last Taken Type albuterol sulfate INHALATION 09/08/21 Unknown History 90 mcg/actuation aerosol inhaler (Ventolin HFA) atorvastatin 40 1 tab PO BEDTIME 09/08/21 09/08/21 Unknown History mg tablet citalopram 40 mg 1 tab PO DAILY 09/08/21 09/08/21 Unknown History tablet divalproex 500 mg 500 mg PO 09/08/21 Unknown History tablet,delayed release dulaglutide 0.75 mg SUBCUT 09/08/21 Unknown History mg/0.5 mL subcutaneous pen injector (Trulicity) dulaglutide 0.75 mg SUBCUT 09/08/21 Unknown History mg/0.5 mL subcutaneous pen injector (Trulicity) famotidine 20 mg 1 tab PO DAILY 09/08/21 09/08/21 Unknown History tablet folic acid 1 mg 1 tab PO DAILY 09/08/21 09/08/21 Unknown History tablet insulin degludec unit SUBCUT 09/08/21 09/08/21 Unknown History 100 unit/mL (3 mL) subcutaneous pen (Tresiba FlexTouch U-100 insulin) ipratropium 0.5 ml INHALATION 09/08/21 Unknown History mg-albuterol 3 mg (2.5 mg base)/3 mL nebulization soln latanoprost 0.005 drp OPHTHALMIC 09/08/21 Unknown History % eye drops (EYE) levothyroxine 75 1 tab PO DAILY 09/08/21 09/08/21 Unknown History mcg tablet loratadine 10 mg 1 tab PO DAILY 09/08/21 09/08/21 Unknown History tablet (Allergy Relief (loratadine)) losartan 100 mg 1 tab PO DAILY 09/08/21 09/08/21 Unknown History tablet metoprolol 1 tab PO DAILY 09/08/21 09/08/21 Unknown History succinate 50 mg tablet,extended release 24 hr sennosides 8.6 mg 2 tab PO DAILY 09/08/21 09/08/21 Unknown History tablet (senna) Physical Exam Verdana 4l Vital Signs and Narrative: Verdana 4d Verdana 4d Vital Signs: Verdana 4d Verdana 4Bd Last Vital Signs Verdana 4d Manager [employer] New 4d Manager [employer] New 4d Temp 99.1 F 09/08/21 21:32 Manager [employer] New 4d Pulse 79 09/08/21 20:03 Manager [employer] NewNew 4d Resp 14 09/08/21 20:03 BP 101/74 09/08/21 20:03 Pulse Ox 96 09/08/21 20:03 BMI result Body Mass Index 43.7 Gen: Appears be in no acute distress . Able to tell her name. HEENT: NCAT, Moist mucosa. Pulmonary: Vesicular breath sounds, fair air entry CVS: Normal S1-S2 Abdomen: BS+, Soft, Nontender Extremities: Warm well perfused Neuro: Alert and awake. oriented x1. Wiggles toes. Moves upper extremities. Otherwise limited exam. Results Labs CBC and Chem 7: 09/08/21 19:03 09/08/21 19:03 Labs: Laboratory Results - last 24 hr 09/08/21 09/08/21 09/08/21 18:09 18:09 19:03 MCV MCH MCHC RDW Plt Count MPV Immature Gran % (Auto) Neut % (Auto) Lymph % (Auto) [place] % (Auto) Eos % (Auto) Baso % (Auto) Lymph # (Auto) [place] # (Auto) Eos # (Auto) Baso # (Auto) Abs Immat Gran (auto) Absolute Neuts (auto) Absolute Nucleated RBC Nucleated RBC % (auto) Neutrophils % (Manual) Band Neutrophils % Lymphocytes % (Manual) Monocytes % (Manual) Eosinophils % (Manual) Abs Neuts (Manual) Lymphocytes # (Manual) Monocytes # (Manual) Eosinophils # (Manual) Nucleated RBCs Platelet Estimate Plt Morphology Comment RBC Morphology PT Whole Blood PT 14.2 H INR Whole Blood INR 1.2 H APTT Anion Gap 16 Estim Creat Clear Calc 78.5 Estimated GFR > 60 POC Glucose 148 H Random Glucose 170 H Lactic Acid Calcium 9.4 Total Bilirubin 0.5 Direct Bilirubin 0.2 AST 39 H ALT 23 Alkaline Phosphatase 70 Total Creatine Kinase 16 L Troponin I High Sens Total Protein 6.2 L Albumin 3.3 L Urine Color Urine Appearance Urine pH Ur Specific Panacea Urine Protein Urine Glucose (UA) Urine Ketones Urine Blood Urine Nitrite Ur Leukocyte Esterase Urine RBC Urine WBC Ur Squamous Epith Cells Amorphous Sediment Urine Bacteria Urine Mucus COVID-19 (GAYLE) COVID-19 Clin Com 09/08/21 09/08/21 09/08/21 19:03 19:03 19:03 MCV 96.2 MCH 31.1 MCHC 32.4 RDW 15.7 Plt Count 81 L MPV 10.2 Immature Gran % (Auto) Cancelled Neut % (Auto) Cancelled Lymph % (Auto) Cancelled [place] % (Auto) Cancelled Eos % (Auto) Cancelled Baso % (Auto) Cancelled Lymph # (Auto) Cancelled [place] # (Auto) Cancelled Eos # (Auto) Cancelled Baso # (Auto) Cancelled Abs Immat Gran (auto) Cancelled Absolute Neuts (auto) Cancelled Absolute Nucleated RBC 0.000 Nucleated RBC % (auto) 0.0 Neutrophils % (Manual) 60 Band Neutrophils % 9 H Lymphocytes % (Manual) 18 L Monocytes % (Manual) 12 H Eosinophils % (Manual) 1 Abs Neuts (Manual) 5.5 Lymphocytes # (Manual) 1.4 Monocytes # (Manual) 0.9 Eosinophils # (Manual) 0.1 Nucleated RBCs 1 H Platelet Estimate DECREASED Plt Morphology Comment NORMAL RBC Morphology NORMAL PT 11.4 Whole Blood PT INR 1.0 Whole Blood INR APTT 32.7 Anion Gap Estim Creat Clear Calc Estimated GFR POC Glucose Random Glucose Cancelled Lactic Acid Calcium Total Bilirubin Direct Bilirubin AST ALT Alkaline Phosphatase Total Creatine Kinase Troponin I High Sens Total Protein Albumin Urine Color Urine Appearance Urine pH Ur Specific Panacea Urine Protein Urine Glucose (UA) Urine Ketones Urine Blood Urine Nitrite Ur Leukocyte Esterase Urine RBC Urine WBC Ur Squamous Epith Cells Amorphous Sediment Urine Bacteria Urine Mucus COVID-19 (GAYLE) COVID-19 JobSerf Com 09/08/21 09/08/21 09/08/21 19:03 19:03 19:24 MCV MCH MCHC RDW Plt Count MPV Immature Gran % (Auto) Neut % (Auto) Lymph % (Auto) [place] % (Auto) Eos % (Auto) Baso % (Auto) Lymph # (Auto) [place] # (Auto) Eos # (Auto) Baso # (Auto) Abs Immat Gran (auto) Absolute Neuts (auto) Absolute Nucleated RBC Nucleated RBC % (auto) Neutrophils % (Manual) Band Neutrophils % Lymphocytes % (Manual) Monocytes % (Manual) Eosinophils % (Manual) Abs Neuts (Manual) Lymphocytes # (Manual) Monocytes # (Manual) Eosinophils # (Manual) Nucleated RBCs Platelet Estimate Plt Morphology Comment RBC Morphology PT Whole Blood PT INR Whole Blood INR APTT Anion Gap Estim Creat Clear Calc Estimated GFR POC Glucose Random Glucose Lactic Acid 1.9 Calcium Total Bilirubin Direct Bilirubin AST ALT Alkaline Phosphatase Total Creatine Kinase Troponin I High Sens < 3.5 Total Protein Albumin Urine Color YELLOW Urine Appearance CLEAR Urine pH 5.5 Ur Specific Panacea >= 1.030 H Urine Protein 1+ H Urine Glucose (UA) NEG Urine Ketones NEG Urine Blood NEG Urine Nitrite NEG Ur Leukocyte Esterase NEG Urine RBC 0-2 Urine WBC 0 Ur Squamous Epith Cells 1+ Amorphous Sediment TRACE Urine Bacteria NONE Urine Mucus 1+ COVID-19 (GAYLE) COVID-19 JobSerf Com 09/08/21 20:09 MCV MCH MCHC RDW Plt Count MPV Immature Gran % (Auto) Neut % (Auto) Lymph % (Auto) [place] % (Auto) Eos % (Auto) Baso % (Auto) Lymph # (Auto) [place] # (Auto) Eos # (Auto) Baso # (Auto) Abs Immat Gran (auto) Absolute Neuts (auto) Absolute Nucleated RBC Nucleated RBC % (auto) Neutrophils % (Manual) Band Neutrophils % Lymphocytes % (Manual) Monocytes % (Manual) Eosinophils % (Manual) Abs Neuts (Manual) Lymphocytes # (Manual) Monocytes # (Manual) Eosinophils # (Manual) Nucleated RBCs Platelet Estimate Plt Morphology Comment RBC Morphology PT Whole Blood PT INR Whole Blood INR APTT Anion Gap Estim Creat Clear Calc Estimated GFR POC Glucose Random Glucose Lactic Acid Calcium Total Bilirubin Direct Bilirubin AST ALT Alkaline Phosphatase Total Creatine Kinase Troponin I High Sens Total Protein Albumin Urine Color Urine Appearance Urine pH Ur Specific Panacea Urine Protein Urine Glucose (UA) Urine Ketones Urine Blood Urine Nitrite Ur Leukocyte Esterase Urine RBC Urine WBC Ur Squamous Epith Cells Amorphous Sediment Urine Bacteria Urine Mucus COVID-19 (GAYLE) Positive A COVID-19 Clin Com See Note Imaging Radiologist's Impressions: Impressions Head CT 09/08/21 18:16 IMPRESSION: No acute intracranial process seen. There is a encephalomalacia and gliosis in the left occipital lobe and high right posterior parietal lobe from previous insult. Also visualized is left occipital craniectomy changes. The sinuses are clear. Overall no major change from 09/06/2028 CT PET exam. Results were discussed immediately with ED Dr. Parmjit Cam by phone at 6:27 PM . Assessment and Plan (1) Acute alteration in mental status: Status: Acute (2) Fever: Status: Acute (3) COVID-19 virus infection: Status: Acute (4) Diabetes: Status: Acute 71-year-old female with a past medical history of hypertension, hyperlipidemia, diabetes, hypothyroidism, lives alone has home [employer] visits regularly; presented to the hospital today with a chief complaint of altered mental status. noted to have COVID-19Positive. Admitted for further management. altered mental status: Likely toxic metabolic encephalopathy. Supportive care. Dysphagia screen. Aspiration precautions. Fall precautions. COVID-19 positive: Chest x-ray is clear. But patient is saturating 93% on room air. Placed on supplemental oxygen. Empirically started on Decadron. ID consult for further recommendations. unknown vaccination status. Diabetes: Insulin sliding scale hypertension: Patient's Current Blood pressure is 101/74. Hold home an tihypertensives. for all other chronic conditions, home medications will be continued including levothyroxine, folic acid, citalopram, losartan; depakote needs to confirmed in AM with PCP by day team. DVT prophylaxis: Lovenox Code status: presumed Full code. no contact information for confirmation. Quality Stroke Does the patient have a stroke diagnosis?: No VTE Prior VTE?: No VTE Risk Level:: Medical - moderate - high VTE Device Contraindication: Treatment Not Indicated VTE Drug Contraindication: N/A - Med Ordered
[2021-09-08 22:36] LABS: Folate > 20.0 ng/mL (> or = 4.0); Vitamin B12 399 pg/mL (200-900)
[2021-09-08] MEDS: Enoxaparin Sodium 40 MG/0.4 ML SYRINGE SUBCUT (23:42)
[2021-09-09] VITALS (7 sets, daily range): BP systolic 132–154; BP diastolic 66–113; PULSE 66–106; RESP 18–20; TEMP 36.1–38.6; O2SAT 91–99
[2021-09-09 06:32] LABS: Hemoglobin 14.2 g/dl (12.0-16.0); Mean Corpuscular Hemoglobin 30.3 pg (27.0-33.0); PLT CLUMP 1
[2021-09-09 06:34] LABS: Hematocrit 44.7 % (37.0-47.0); Mean Corpuscular HGB Conc 31.8 g/dl (31.0-35.0); Mean Corpuscular Volume 95.5 fL (80.0-98.0); Mean Platelet Volume 10.8 fL (9.4-12.3); Red Blood Count 4.68 X10*6/uL (4.20-5.50); Red Cell Distribution Width 15.6 % (11.0-16.0)
[2021-09-09 06:50] LABS: Anion Gap 14 (12-20); Blood Urea Nitrogen 21 mg/dL (9-16); Calcium 9.4 mg/dL (8.4-10.2); Carbon Dioxide 27 mmol/L (22-29); Chloride 104 mmol/L (96-108); Creatinine Clr Calc Pharmacy 81.4; Estimated Glomerular Filt Rate > 60; Glucose Random 184 mg/dL (60-115); Platelet Count 87 X10*3/uL (160-400); Potassium 4.6 mmol/L (3.3-5.1); Sodium 140 mmol/L (135-145); White Blood Count 9.8 X10*3/uL (4.8-10.8)
[2021-09-09 07:13] LABS: Thyroid Stimulating Hormone 5.73 uIU/mL (0.32-4.0)
[2021-09-09 07:22] LABS: Band Neutrophils Percent 1 % (3-5); Lymphocytes Absolute Manual 0.8 X10*3/uL (1.2-4.9); Lymphocytes Percent Manual 8 % (20-40); Metamyelocytes Percent 10 %; Monocytes Absolute Manual 1.5 X10*3/uL (0.1-1.2); Monocytes Percent Manual 15 % (2-11); Neutrophils Absolute Manual 6.4 X10*3/uL (2.0-8.3); Neutrophils Percent Manual 64 % (45-73); Promyelocytes Absolute 0.2 X10*3/uL; Promyelocytes Percent 2 %
[2021-09-09 07:25] LABS: Macrocytosis 1+ (5-14) /OIF; Platelet Estimate DECREASED (NORMAL); Platelet Morphology Comment NORMAL; RBC Morphology NOTED
--- NOTE | 2021-09-09 08:28 | PC.NURSE ---
pt sleeping at this rn arrival to room. skin pale, warm dry. dry mm/. pitting edema up to thighs and in hands, forearms. answer questions slowly. does speak but slowly. moans with bed moblity. saturated with urine that has now dried in linens. pt calling for Mama. states it hurts all over. incontinence care provided. pt continues to leak urine. pure wick placed. iv is patent. unlabored resp. recal temp 101.4 saO2 90 at rest and is mouth breathing. NC applied to mouth.
--- NOTE | 2021-09-09 08:44 | PHA.MEDREC ---
Pharmacy Consult ? Medication Reconciliation Pharmacy has completed the medication reconciliation. Confirmed medictions with A nurse Racquel. Estefany Matthews, TamekaD
--- NOTE | 2021-09-09 08:54 | MHC.CM.PN ---
Attempted to meet with patient in regards to discharge planning. Nursing care currently being provided. Spoke with patient's HCP: Queen Maylin, via telephone at [phone]. Patient is bedbound at baseline. Receives [employer] services through . PCP is Dr Cote. Copy of HCP obtained from [facility]. IMM explained and sent to [facility] via certified mail at: [address] [place] [address]. Patient will need BLS tx home when medically stable. Continue to monitor for d/c needs.
[2021-09-09 09:00] LABS: Glucose, Whole Blood 196 mg/dL (60-115)
--- NOTE | 2021-09-09 10:33 | PC.NURSE ---
rn to rn with molly on IMC.
[2021-09-09 11:40] LABS: Glucose, Whole Blood 174 mg/dL (60-115)
--- NOTE | 2021-09-09 11:49 | P.PNIM_ITS ---
Subjective Subjective Date of Service: 09/09/21 Interval History: cc: ams, weakness interval history: not answering questions Review of Systems Review of Systems: Yes Unobtainable due to mental condition Physical Exam Vital Signs: Vital Signs: Last Vital Signs Temp 97.8 F 09/09/21 11:30 Pulse 87 09/09/21 11:30 Resp 18 09/09/21 11:30 BP 140/68 H 09/09/21 11:30 Pulse Ox 96 09/09/21 11:30 BMI result Body Mass Index 43.7 General: lethargic, ill appearing, answers to name, says she is in hospital in [place], but not answering questions further or following commands Resp: diminished bilateral, no accessory muscles used CVS: S1,S2,RRR GI: soft, non tender, non distended Neuro: not moving lower limbs, grossly weak Psych: flat affect, impaired insight Objective Data Active Medications Acetaminophen (Acetaminophen 325 Mg Tablet) 650 mg PO Q6H PRN PRN Reason: Pain, Mild (Pain Scale 1-3) Acetaminophen (Acetaminophen Supp 650 Mg Supp.Rect) 650 mg [place] Q4H PRN PRN Reason: fever Aspirin (Aspirin 81 Mg Tab.Chew) 81 mg PO DAILY [facility] Atorvastatin Calcium (Atorvastatin Calcium 40 Mg Tablet) 40 mg PO BEDTIME [facility] Dextrose (Dextrose 50 % 25 Gm/50 Ml Syringe) 25 gm IVPUSH Q15M PRN; Protocol PRN Reason: per Hypoglycemia Standing Ord. Divalproex Sodium (Divalproex Sodium 500 Mg Tablet.Dr) 1,000 mg PO BID [facility] Last Admin: 09/09/21 10:36 Dose: Not Given Documented by: ARIADNA Non-Admin Reason: NPO Enoxaparin Sodium (Enoxaparin Sodium 40 Mg/0.4 Ml Syringe) 40 mg SUBCUT Q24H [facility] Last Admin: 09/08/21 23:42 Dose: 40 mg Documented by: VICK Escitalopram Oxalate (Escitalopram Oxalate 20 Mg Tablet) 20 mg PO DAILY [facility] Last Admin: 09/09/21 10:36 Dose: Not Given Documented by: ARIADNA Non-Admin Reason: NPO Famotidine (Famotidine 20 Mg Tablet) 20 mg PO DAILY [facility] Last Admin: 09/09/21 10:36 Dose: Not Given Documented by: ARIADNA Non-Admin Reason: NPO Folic Acid (Folic Acid 1 Mg Tablet) 1 mg PO DAILY [facility] Last Admin: 09/09/21 10:36 Dose: Not Given Documented by: ARIADNA Non-Admin Reason: NPO Glucose (Glucose Gel 15 Gm Gel..Gram.) 15 gm PO Q15M PRN; Protocol PRN Reason: per Hypoglycemia Standing Ord. Insulin Human Lispro (Insulin Lispro 100 Unit/Ml 3 Ml Vial) 0 unit SUBCUT QIDACHS [facility]; Protocol Latanoprost (Latanoprost 0.005 % Ophth Emilia 2.5 Ml Drops) 1 drop EYE-BOTH BEDTIME [facility] Levothyroxine Sodium (Levothyroxine Sodium 75 Mcg Tablet) 75 mcg PO DAILY@0630 [facility] Last Admin: 09/09/21 10:37 Dose: Not Given Documented by: ARIADNA Non-Admin Reason: NPO Loratadine (Loratadine 10 Mg Tablet) 10 mg PO DAILY [facility] Last Admin: 09/09/21 10:35 Dose: Not Given Documented by: ARIADNA Non-Admin Reason: NPO Losartan Potassium (Losartan Potassium 50 Mg Tablet) 100 mg PO DAILY [facility]; Prot ocol Last Admin: 09/09/21 10:35 Dose: Not Given Documented by: ARIADNA Non-Admin Reason: NPO Melatonin (Melatonin 3 Mg Tablet) 6 mg PO BEDTIME PRN PRN Reason: Insomnia Metoprolol Succinate (Metoprolol Succinate Er 50 Mg Tab.Er.24h) 50 mg PO DAILY [facility]; Protocol Last Admin: 09/09/21 10:35 Dose: Not Given Documented by: ARIADNA Non-Admin Reason: NPO Senna (Sennosides 8.6 Mg Tablet) 17.2 mg PO BEDTIME PRN PRN Reason: Constipation Senna (Sennosides 8.6 Mg Tablet) 17.2 mg PO DAILY [facility] Last Admin: 09/09/21 10:34 Dose: Not Given Documented by: ARIADNA Non-Admin Reason: NPO Sodium Chloride (0.9 % Sodium Chloride Flush 3 Ml Syringe) 3 ml IVFLUSH QSHIFT [facility] Last Admin: 09/09/21 10:36 Dose: Not Given Documented by: ARIADNA Non-Admin Reason: NPO Labs CBC & Chem 7: 09/09/21 06:09 09/09/21 06:09 Labs: Laboratory Results - last 24 hr 09/08/21 09/08/21 09/08/21 18:09 18:09 19:03 MCV MCH MCHC RDW Plt Count MPV Immature Gran % (Auto) Neut % (Auto) Lymph % (Auto) Ross % (Auto) Eos % (Auto) Baso % (Auto) Lymph # (Auto) Ross # (Auto) Eos # (Auto) Baso # (Auto) Abs Immat Gran (auto) Absolute Neuts (auto) Absolute Nucleated RBC Nucleated RBC % (auto) Neutrophils % (Manual) Band Neutrophils % Lymphocytes % (Manual) Monocytes % (Manual) Eosinophils % (Manual) Metamyelocytes % Promyelocytes % Abs Neuts (Manual) Lymphocytes # (Manual) Monocytes # (Manual) Eosinophils # (Manual) Metamyelocytes # Promyelocytes # Nucleated RBCs Platelet Estimate Plt Morphology Comment RBC Morphology Macrocytosis Smear Path Review PT Whole Blood PT 14.2 H INR Whole Blood INR 1.2 H APTT Anion Gap 16 Estim Creat Clear Calc 78.5 Estimated GFR > 60 POC Glucose 148 H Random Glucose 170 H Lactic Acid Calcium 9.4 Total Bilirubin 0.5 Direct Bilirubin 0.2 AST 39 H ALT 23 Alkaline Phosphatase 70 Total Creatine Kinase 16 L Troponin I High Sens Total Protein 6.2 L Albumin 3.3 L Vitamin B12 Folate TSH Urine Color Urine Appearance Urine pH Ur Specific [place] Urine Protein Urine Glucose (UA) Urine Ketones Urine Blood Urine Nitrite Ur Leukocyte Esterase Urine RBC Urine WBC Ur Squamous Epith Cells Amorphous Sediment Urine Bacteria Urine Mucus COVID-19 (GAYLE) COVID-19 Clin Com 09/08/21 09/08/21 09/08/21 19:03 19:03 19:03 MCV 96.2 MCH 31.1 MCHC 32.4 RDW 15.7 Plt Count 81 L MPV 10.2 Immature Gran % (Auto) Cancelled Neut % (Auto) Cancelled Lymph % (Auto) Cancelled Ross % (Auto) Cancelled Eos % (Auto) Cancelled Baso % (Auto) Cancelled Lymph # (Auto) Cancelled Ross # (Auto) Cancelled Eos # (Auto) Cancelled Baso # (Auto) Cancelled Abs Immat Gran (auto) Cancelled Absolute Neuts (auto) Cancelled Absolute Nucleated RBC 0.000 Nucleated RBC % (auto) 0.0 Neutrophils % (Manual) 60 Band Neutrophils % 9 H Lymphocytes % (Manual) 18 L Monocytes % (Manual) 12 H Eosinophils % (Manual) 1 Metamyelocytes % Promyelocytes % Abs Neuts (Manual) 5.5 Lymphocytes # (Manual) 1.4 Monocytes # (Manual) 0.9 Eosinophils # (Manual) 0.1 Metamyelocytes # Promyelocytes # Nucleated RBCs 1 H Platelet Estimate DECREASED Plt Morphology Comment NORMAL RBC Morphology NORMAL Macrocytosis Smear Path Review SEE NOTE PT 11.4 Whole Blood PT INR 1.0 Whole Blood INR APTT 32.7 Anion Gap Estim Creat Clear Calc Estimated GFR POC Glucose Random Glucose Cancelled Lactic Acid Calcium Total Bilirubin Direct Bilirubin AST ALT Alkaline Phosphatase Total Creatine Kinase Troponin I High Sens Total Protein Albumin Vitamin B12 Folate TSH Urine Color Urine Appearance Urine pH Ur Specific [place] Urine Protein Urine Glucose (UA) Urine Ketones Urine Blood Urine Nitrite Ur Leukocyte Esterase Urine RBC Urine WBC Ur Squamous Epith Cells Amorphous Sediment Urine Bacteria Urine Mucus COVID-19 (GAYLE) COVID-19 EXPO 09/08/21 09/08/21 09/08/21 19:03 19:03 19:03 MCV MCH MCHC RDW Plt Count MPV Immature Gran % (Auto) Neut % (Auto) Lymph % (Auto) Ross % (Auto) Eos % (Auto) Baso % (Auto) Lymph # (Auto) Ross # (Auto) Eos # (Auto) Baso # (Auto) Abs Immat Gran (auto) Absolute Neuts (auto) Absolute Nucleated RBC Nucleated RBC % (auto) Neutrophils % (Manual) Band Neutrophils % Lymphocytes % (Manual) Monocytes % (Manual) Eosinophils % (Manual) Metamyelocytes % Promyelocytes % Abs Neuts (Manual) Lymphocytes # (Manual) Monocytes # (Manual) Eosinophils # (Manual) Metamyelocytes # Promyelocytes # Nucleated RBCs Platelet Estimate Plt Morphology Comment RBC Morphology Macrocytosis Smear Path Review PT Whole Blood PT INR Whole Blood INR APTT Anion Gap Estim Creat Clear Calc Estimated GFR POC Glucose Random Glucose Lactic Acid 1.9 Calcium Total Bilirubin Direct Bilirubin AST ALT Alkaline Phosphatase Total Creatine Kinase Troponin I High Sens < 3.5 Total Protein Albumin Vitamin B12 399 Folate > 20.0 TSH Urine Color Urine Appearance Urine pH Ur Specific [place] Urine Protein Urine Glucose (UA) Urine Ketones Urine Blood Urine Nitrite Ur Leukocyte Esterase Urine RBC Urine WBC Ur Squamous Epith Cells Amorphous Sediment Urine Bacteria Urine Mucus COVID-19 (GAYLE) COVID-19 Appetizer Mobile Com 09/08/21 09/08/21 09/09/21 19:24 20:09 06:09 MCV 95.5 MCH 30.3 MCHC 31.8 RDW 15.6 Plt Count 87 L MPV 10.8 Immature Gran % (Auto) Cancelled Neut % (Auto) Cancelled Lymph % (Auto) Cancelled Ross % (Auto) Cancelled Eos % (Auto) Cancelled Baso % (Auto) Cancelled Lymph # (Auto) Cancelled Ross # (Auto) Cancelled Eos # (Auto) Cancelled Baso # (Auto) Cancelled Abs Immat Gran (auto) Cancelled Absolute Neuts (auto) Cancelled Absolute Nucleated RBC 0.000 Nucleated RBC % (auto) 0.0 Neutrophils % (Manual) 64 Band Neutrophils % 1 L Lymphocytes % (Manual) 8 L Monocytes % (Manual) 15 H Eosinophils % (Manual) Metamyelocytes % 10 Promyelocytes % 2 Abs Neuts (Manual) 6.4 Lymphocytes # (Manual) 0.8 L Monocytes # (Manual) 1.5 H Eosinophils # (Manual) Metamyelocytes # 1.0 Promyelocytes # 0.2 Nucleated RBCs Platelet Estimate DECREASED Plt Morphology Comment NORMAL RBC Morphology NOTED Macrocytosis 1+ (5-14) Smear Path Review PT Whole Blood PT INR Whole Blood INR APTT Anion Gap Estim Creat Clear Calc Estimated GFR POC Glucose Random Glucose Lactic Acid Calcium Total Bilirubin Direct Bilirubin AST ALT Alkaline Phosphatase Total Creatine Kinase Troponin I High Sens Total Protein Albumin Vitamin B12 Folate TSH Urine Color YELLOW Urine Appearance CLEAR Urine pH 5.5 Ur Specific [place] >= 1.030 H Urine Protein 1+ H Urine Glucose (UA) NEG Urine Ketones NEG Urine Blood NEG Urine Nitrite NEG Ur Leukocyte Esterase NEG Urine RBC 0-2 Urine WBC 0 Ur Squamous Epith Cells 1+ Amorphous Sediment TRACE Urine Bacteria NONE Urine Mucus 1+ COVID-19 (GAYLE) Positive A COVID-19 Clin Com See Note 09/09/21 09/09/21 09/09/21 06:09 08:25 11:26 MCV MCH MCHC RDW Plt Count MPV Immature Gran % (Auto) Neut % (Auto) Lymph % (Auto) Ross % (Auto) Eos % (Auto) Baso % (Auto) Lymph # (Auto) Ross # (Auto) Eos # (Auto) Baso # (Auto) Abs Immat Gran (auto) Absolute Neuts (auto) Absolute Nucleated RBC Nucleated RBC % (auto) Neutrophils % (Manual) Band Neutrophils % Lymphocytes % (Manual) Monocytes % (Manual) Eosinophils % (Manual) Metamyelocytes % Promyelocytes % Abs Neuts (Manual) Lymphocytes # (Manual) Monocytes # (Manual) Eosinophils # (Manual) Metamyelocytes # Promyelocytes # Nucleated RBCs Platelet Estimate Plt Morphology Comment RBC Morphology Macrocytosis Smear Path Review PT Whole Blood PT INR Whole Blood INR APTT Anion Gap 14 Estim Creat Clear Calc 81.4 Estimated GFR > 60 POC Glucose 196 H 174 H Random Glucose 184 H Lactic Acid Calcium 9.4 Total Bilirubin Direct Bilirubin AST ALT Alkaline Phosphatase Total Creatine Kinase Troponin I High Sens Total Protein Albumin Vitamin B12 Folate TSH 5.73 H Urine Color Urine Appearance Urine pH Ur Specific [place] Urine Protein Urine Glucose (UA) Urine Ketones Urine Blood Urine Nitrite Ur Leukocyte Esterase Urine RBC Urine WBC Ur Squamous Epith Cells Amorphous Sediment Urine Bacteria Urine Mucus COVID-19 (GAYLE) COVID-19 Clin Com Assessment and Plan (1) COVID-19 virus infection: Status: Acute Assessment and Plan: 71F presented as stroke alert for reported slurred speech and left sided weakness, found to have ams, fevers, covid+ metabolic encephalopathy likely due to viral sepsis from covid would rule out cva -mri, neuro, monitor on tele dysphagia - API ARCHITECT COVID currently not hypoxic, will hold off on decadron monitor ID eval 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 due to depakote monitor hypothyroid synthroid htn losartan, toprol ?history of CVA asa, statin dvt prophylaxis - lovenox full code Quality Stroke Does the patient have a stroke diagnosis?: No VTE Prior VTE?: No VTE Risk Level:: Medical - moderate - high VTE Device Contraindication: Treatment Not Indicated VTE Drug Contraindication: N/A - Med Ordered
--- NOTE | 2021-09-09 14:27 | MHC.SL.SWA ---
Speech Pathologist Impression: Risk of Aspiration Oralpharyngeal Dysphagia Risk of Aspiration Due to: Neurological Condition Dysphasia Diet Status: Upgrade Liquid Consistency and Strategies for Safe Swallow: Liquid Intake Recommendation: [place] Thick Liquid Intake Strategies: Small Sips No Straws Solid Food Consistency: Dietary Recommendations: Pureed (NDD1) Additional Modifications to Solid Foods: Recommend PUREED (NDD1) solids and THIN liquids, pills CRUSHED in PUREE. Patient requires total 1:1 assistance feeding. Strict aspiration precautions apply. COMMODITY LEAD will continue to follow. Oral Medication Intake: Crushed with Puree Compensatory Strategies and Precautions to be Taken for Safe Swallow: Sitting Upright (90 deg) No Straw Small Bites and Sips Alternate Liquids/Solids Rate of Ingestion Change Oral Check Supervision While Eating and Drinking for Safe Swallow: Total Assistance Swallowing Recommended Treatments: Compens. Strategy Educat. Recommendation for Speech: Inpatient Speech Therapy Comment: 1:1 assistance feeding; aspiration precautions Smeller Clinican/Clinical Fellow: No Supervisory Statement: I have reviewed and agree with the student/clinical fellow's documentation: N/A Speech Language Pathologist: Jo Hurt M.A., CCC-COMMODITY LEAD
--- NOTE | 2021-09-09 14:29 | MHC.SL.SWA ---
Speech Pathologist Impression: Risk of Aspiration Oralpharyngeal Dysphagia Risk of Aspiration Due to: Neurological Condition Dysphasia Diet Status: Upgrade Liquid Consistency and Strategies for Safe Swallow: Liquid Intake Recommendation: [place] Thick Liquid Intake Strategies: Small Sips No Straws Solid Food Consistency: Dietary Recommendations: Pureed (NDD1) Additional Modifications to Solid Foods: Recommend PUREED (NDD1) solids and [place] THICK liquids, pills CRUSHED in PUREE. Patient requires total 1:1 assistance feeding. Strict aspiration precautions apply. OFFSET LITHOGRAPHIC PRESS SETTER will continue to follow. Oral Medication Intake: Crushed with Puree Compensatory Strategies and Precautions to be Taken for Safe Swallow: Sitting Upright (90 deg) No Straw Small Bites and Sips Alternate Liquids/Solids Rate of Ingestion Change Oral Check Supervision While Eating and Drinking for Safe Swallow: Total Assistance Foods to Avoid: Swallowing Recommended Treatments: Compens. Strategy Educat. Recommendation for Speech: Inpatient Speech Therapy Comment: 1:1 assistance feeding; aspiration precautions Frequency/Duration: Date Range for Service Req: Timeline to reassess: Impregnation Operator Clinican/Clinical Fellow: No Supervisory Statement: I have reviewed and agree with the student/clinical fellow's documentation: N/A Speech Language Pathologist: Jo Hurt M.A., CCC-OFFSET LITHOGRAPHIC PRESS SETTER
[2021-09-09 16:07] LABS: Glucose, Whole Blood 129 mg/dL (60-115)
--- NOTE | 2021-09-09 16:49 | PM.NEUROCN ---
History of Present Illness Data of Consult Service Date: 09/09/21 Primary Care Provider: Unknown Physician HPI Reason for consult: Change in mental status 71 years old woman came to hospital with change in mental status. She was unable to provide any meaningful history. It was also mention that her left side was weak but she has previous history of right-sided weakness. There was no indication of any recent cold or flu-like illness or seizure. Review of Systems Review of Systems: No recent cold or flu-like in PMFSH Past Medical History Medical History (Updated 09/09/21 @ 16:52 by Danielito Dean MD) Chronic diastolic CHF (congestive heart failure) Chronic idiopathic thrombocytopenia Diabetes Epilepsy HTN (hypertension) Hypothyroid TBI (traumatic brain injury) Social History Social History Household Members: None Housing: House Do you presently have visiting nurse or other home services: Yes Patient Tobacco Use Status: Never used Tobacco Use of substances other than those prescribed or required for medical reasons: No Have you been hit, kicked, punched, or otherwise hurt by someone within the past year? If so, by whom?: No Do you feel safe in your current relationship?: No Is there a partner from a previous relationship who is making you feel unsafe now?: No Are you made to feel afraid or neglected: No Advance Directives: Yes Advance Directives on File: Yes Advance Directives Date on File: 09/09/21 Do you have thoughts of harming others: None Do you have a plan to hurt others: No Plan Recently lost weight without trying: Unsure How much weight loss: Unsure Eating poorly because of decreased appetite: No Nutrition screen score: 4 Patient : No : No Poor oral hygiene: No service: No Current occupational status: disabled Meds Allergies Allergy/AdvReac Type Severity Reaction Status Date / Time No Known Allergies Allergy Unverified 05/07/20 19:37 [No Known Allergies*] Active Medications: Current Medications Acetaminophen (Acetaminophen 325 Mg Tablet) 650 mg PO Q6H PRN PRN Reason: Pain, Mild (Pain Scale 1-3) Acetaminophen (Acetaminophen Supp 650 Mg Supp.Rect) 650 mg [place] Q4H PRN PRN Reason: fever Aspirin (Aspirin 81 Mg Tab.Chew) 81 mg PO DAILY [facility] Atorvastatin Calcium (Atorvastatin Calcium 40 Mg Tablet) 40 mg PO BEDTIME [facility] Dextrose (Dextrose 50 % 25 Gm/50 Ml Syringe) 25 gm IVPUSH Q15M PRN; Protocol PRN Reason: per Hypoglycemia Standing Ord. Divalproex Sodium (Divalproex Sodium 500 Mg Tablet.) 1,000 mg PO BID [facility] Last Admin: 09/09/21 10:36 Dose: Not Given Documented by: Enoxaparin Sodium (Enoxaparin Sodium 40 Mg/0.4 Ml Syringe) 40 mg SUBCUT Q24H [facility] Last Admin: 09/08/21 23:42 Dose: 40 mg Documented by: Escitalopram Oxalate (Escitalopram Oxalate 20 Mg Tablet) 20 mg PO DAILY [facility] Last Admin: 09/09/21 10:36 Dose: Not Given Documented by: Famotidine (Famotidine 20 Mg Tablet) 20 mg PO DAILY [facility] Last Admin: 09/09/21 10:36 Dose: Not Given Documented by: Folic Acid (Folic Acid 1 Mg Tablet) 1 mg PO DAILY [facility] Last Admin: 09/09/21 10:36 Dose: Not Given Documented by: Glucose (Glucose Gel 15 Gm Gel..Gram.) 15 gm PO Q15M PRN; Protocol PRN Reason: per Hypoglycemia Standing Ord. Insulin Human Lispro (Insulin Lispro 100 Unit/Ml 3 Ml Vial) 0 unit SUBCUT QIDACHS [facility]; Protocol Last Admin: 09/09/21 16:38 Dose: Not Given Documented by: Latanoprost (Latanoprost 0.005 % Ophth Emilia 2.5 Ml Drops) 1 drop EYE-BOTH BEDTIME [facility] Levothyroxine Sodium (Levothyroxine Sodium 75 Mcg Tablet) 75 mcg PO DAILY@0630 [facility] Last Admin: 09/09/21 10:37 Dose: Not Given Documented by: Loratadine (Loratadine 10 Mg Tablet) 10 mg PO DAILY [facility] Last Admin: 09/09/21 10:35 Dose: Not Given Documented by: Losartan Potassium (Losartan Potassium 50 Mg Tablet) 100 mg PO DAILY [facility]; Protocol Last Admin: 09/09/21 10:35 Dose: Not Given Documented by: Melatonin (Melatonin 3 Mg Tablet) 6 mg PO BEDTIME PRN PRN Reason: Insomnia Metoprolol Succinate (Metoprolol Succinate Er 50 Mg Tab.Er.24h) 50 mg PO DAILY [facility]; Protocol Last Admin: 09/09/21 10:35 Dose: Not Given Documented by: Senna (Sennosides 8.6 Mg Tablet) 17.2 mg PO BEDTIME PRN PRN Reason: Constipation Senna (Sennosides 8.6 Mg Tablet) 17.2 mg PO DAILY [facility] Last Admin: 09/09/21 10:34 Dose: Not Given Documented by: Sodium Chloride (0.9 % Sodium Chloride Flush 3 Ml Syringe) 3 ml IVFLUSH QSHIFT [facility] Last Admin: 09/09/21 10:36 Dose: Not Given Documented by: Home Medications Medication Instructions Recorded Confirmed Last Taken Type albuterol sulfate 90 mcg/actuation 2 puff INHALATION Q6H PRN 09/08/21 09/08/21 Unknown History aerosol inhaler (Ventolin HFA) atorvastatin 40 mg tablet 1 tab PO BEDTIME 09/08/21 09/08/21 Unknown History citalopram 40 mg tablet 1 tab PO DAILY 09/08/21 09/08/21 Unknown History divalproex 500 mg tablet,delayed 1,000 mg PO BID 09/08/21 09/08/21 Unknown History release dulaglutide 0.75 mg/0.5 mL 1.5 mg SUBCUT [place] 09/08/21 09/09/21 Unknown History subcutaneous pen injector (Trulicity) famotidine 20 mg tablet 1 tab PO DAILY 09/08/21 09/08/21 Unknown History folic acid 1 mg tablet 1 tab PO DAILY 09/08/21 09/08/21 Unknown History insulin degludec 100 unit/mL (3 54 unit SUBCUT DAILY 09/08/21 09/08/21 Unknown History mL) subcutaneous pen (Tresiba FlexTouch U-100 insulin) ipratropium 0.5 mg-albuterol 3 mg 3 ml INHALATION QID PRN 09/08/21 09/08/21 Unknown History (2.5 mg base)/3 mL nebulization soln latanoprost 0.005 % eye drops 1 drp OPHTHALMIC (EYE) DAILY 09/08/21 09/09/21 Unknown History levothyroxine 75 mcg tablet 1 tab PO DAILY 09/08/21 09/08/21 Unknown History loratadine 10 mg tablet (Allergy 1 tab PO DAILY 09/08/21 09/08/21 Unknown History Relief (loratadine)) losartan 100 mg tablet 1 tab PO DAILY 09/08/21 09/08/21 Unknown History metoprolol succinate 50 mg 1 tab PO DAILY 09/08/21 09/08/21 Unknown History tablet,extended release 24 hr sennosides 8.6 mg tablet (senna) 2 tab PO DAILY 09/08/21 09/08/21 Unknown History aspirin 81 mg chewable tablet 81 mg PO DAILY 09/09/21 09/09/21 Unknown History polyethylene glycol 3350 17 gram 17 g PO DAILY 09/09/21 09/09/21 Unknown History oral powder packet (Miralax) Physical Exam Vital Signs: Vital Signs: Last Vital Signs Temp 98.2 F 09/09/21 15:05 Pulse 66 09/09/21 15:05 Resp 20 09/09/21 15:05 BP 132/67 09/09/21 15:05 Pulse Ox 97 09/09/21 15:05 BMI result Body Mass Index 43.7 Neuro: Other: She was drowsy in communicating with her in COVID what was somewhat difficult as we were wearing masks. She was able to hear with shouting and able to follow simple commands. She told us her last name. Face seems symmetrical. There was mild right-sided weakness. Right plantar was extensor left was flexor. Deep tendon reflexes were absent. She was wiggling toes in left leg. There was moderate leg edema. Results Labs CBC & Chem 7: 09/09/21 06:09 09/09/21 06:09 Labs: Short CBC 09/08/21 09/09/21 Range/Units 19:03 06:09 WBC 7.9 9.8 (4.8-10.8) X10*3/uL Hgb 13.2 14.2 (12.0-16.0) g/dl Hct 40.8 44.7 (37.0-47.0) % Plt Count 81 L 87 L (160-400) X10*3/uL BMP 09/08/21 09/09/21 19:03 06:09 Sodium 139 140 Potassium 4.3 4.6 Chloride 102 104 Carbon Dioxide 25 27 BUN 21 H 21 H Creatinine 0.82 0.79 Calcium 9.4 9.4 Cardiac Enzymes 09/08/21 Range/Units 19:03 Total Creatine Kinase 16 L (26-140) U/L Liver Function 09/08/21 Range/Units 19:03 Total Bilirubin 0.5 (0.0-1.0) mg/dL Direct Bilirubin 0.2 (0.0-0.5) mg/dL AST 39 H (5-31) U/L ALT 23 (0-31) U/L Alkaline Phosphatase 70 (39-117) U/L Albumin 3.3 L (3.5-5.0) g/dL Urine 09/08/21 Range/Units 19:24 Urine Color YELLOW Urine Appearance CLEAR Urine pH 5.5 (5.0-8.0) Ur Specific [place] >= 1.030 H (1.005-1.025) Urine Protein 1+ H (NEG-TRACE) MG/DL Urine Glucose (UA) NEG (NEG) MG/DL Noncontrast head CT revealed a 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 Assessment and Plan (1) Encephalopathy: Status: Acute 71 years old woman came to hospital with change in mental status. She does not have any obvious metabolic abnormality or infection other than COVID positivity. As far as her weakness is concerned, she has mild right hemiparesis with left-sided encephalomalacia. There is also evidence of significant cerebral atrophy. They might be underlying peripheral neuropathy and arthritis contributing to her weakness. An acute stroke is difficult to completely rule out. At this time my recommendation is hydration, treatment of infection, continuation of anti-platelet agent and involving PT OT for ambulation. Procedures Date of Service Date of Service: 09/09/21
[2021-09-09] MEDS: 0.9 % Sodium Chloride Flush 3 ML SYRINGE IVFLUSH ×2 (17:55→20:38)
[2021-09-09 19:55] LABS: Glucose, Whole Blood 226 mg/dL (60-115)
[2021-09-09] MEDS: Insulin Lispro 100 UNIT/ML 3 ML VIAL SUBCUT (20:36)
[2021-09-09] MEDS: Divalproex Sodium 500 MG TABLET.DR 1000 MG PO (20:36)
[2021-09-09] MEDS: Atorvastatin Calcium 40 MG TABLET PO (20:36)
[2021-09-09] MEDS: Latanoprost 0.005 % Ophth Sol 2.5 ML DROPS 1 DROP EYE-BOTH (20:42)
[2021-09-09] MEDS: Enoxaparin Sodium 40 MG/0.4 ML SYRINGE SUBCUT (21:48)
[2021-09-10] VITALS (7 sets, daily range): BP systolic 109–179; BP diastolic 53–84; PULSE 66–93; RESP 16–20; TEMP 35.9–36.6; O2SAT 90–98
[2021-09-10] MEDS: Levothyroxine Sodium 75 MCG TABLET PO (05:51)
[2021-09-10 06:53] LABS: Hematocrit 42.8 % (37.0-47.0); Hemoglobin 13.3 g/dl (12.0-16.0); Mean Corpuscular HGB Conc 31.1 g/dl (31.0-35.0); Mean Corpuscular Hemoglobin 30.4 pg (27.0-33.0); Mean Corpuscular Volume 97.9 fL (80.0-98.0); Mean Platelet Volume 10.4 fL (9.4-12.3); Red Blood Count 4.37 X10*6/uL (4.20-5.50); Red Cell Distribution Width 15.8 % (11.0-16.0); White Blood Count 9.5 X10*3/uL (4.8-10.8)
[2021-09-10 06:55] LABS: Platelet Count 83 X10*3/uL (160-400)
[2021-09-10 07:05] LABS: Anion Gap 16 (12-20); Blood Urea Nitrogen 21 mg/dL (9-16); Calcium 9.4 mg/dL (8.4-10.2); Carbon Dioxide 26 mmol/L (22-29); Chloride 104 mmol/L (96-108); Creatinine Clr Calc Pharmacy 82.5; Estimated Glomerular Filt Rate > 60; Glucose Fasting 169 mg/dL (60-99); Potassium 4.8 mmol/L (3.3-5.1); Sodium 141 mmol/L (135-145)
[2021-09-10 07:18] LABS: Glucose, Whole Blood 161 mg/dL (60-115)
[2021-09-10] MEDS: Sennosides 8.6 MG TABLET 17.2 MG PO (07:34)
[2021-09-10] MEDS: Divalproex Sodium 500 MG TABLET.DR 1000 MG PO ×2 (07:34→21:17)
[2021-09-10] MEDS: Famotidine 20 MG TABLET PO (07:34)
[2021-09-10] MEDS: Metoprolol Succinate ER 50 MG TAB.ER.24H PO (07:34)
[2021-09-10] MEDS: Escitalopram Oxalate 20 MG TABLET PO (07:35)
[2021-09-10] MEDS: Losartan Potassium 50 MG TABLET 100 MG PO (07:35)
[2021-09-10] MEDS: Aspirin 81 MG TAB.CHEW PO (07:35)
[2021-09-10] MEDS: Loratadine 10 MG TABLET PO (07:36)
[2021-09-10] MEDS: 0.9 % Sodium Chloride Flush 3 ML SYRINGE IVFLUSH ×3 (07:36→21:18)
[2021-09-10] MEDS: Folic Acid 1 MG TABLET PO (07:36)
[2021-09-10] MEDS: Insulin Lispro 100 UNIT/ML 3 ML VIAL SUBCUT ×4 (07:37→21:18)
[2021-09-10] MEDS: dexAMETHasone sod phosphate 4 MG/ML VIAL 6 MG IVPUSH (09:33)
--- NOTE | 2021-09-10 11:03 | PC.NURSE ---
costello catheter leaking, pt bed change required for large amount of urine. catheter removed at 11:00 without issue. tubing intact, pt tolerated well. 60mL yellow urine documented in catheter output. will continue to monitor for output and asses.
[2021-09-10 11:18] LABS: Glucose, Whole Blood 165 mg/dL (60-115)
--- NOTE | 2021-09-10 14:12 | HO.PM.IMPN ---
Subjective Subjective Date of Service: 09/10/21 Interval History: patient seen and examined at bedside. She is awake alert answers questions appropriately. She is oriented to Self and place.she denies any chest pain , no increased shortness of breath, no abdominal pain. No nausea or vomiting. No urinary symptoms. Review of Systems Review of Systems: Yes all other systems are reviewed and are negative Physical Exam Vital Signs: Vital Signs: Last Vital Signs Temp 97.9 F 09/10/21 11:36 Pulse 74 09/10/21 11:36 Resp 16 09/10/21 11:36 BP 122/53 L 09/10/21 11:36 Pulse Ox 96 09/10/21 11:36 BMI result Body Mass Index 43.7 Const: General: cooperative and no acute distress Resp: Effort & Inspection: normal respiratory effort Cardio: Rate: regular rate Rhythm: regular rhythm GI: Palpation (GI): Soft to palpation Auscultation: normal bowel sounds Extrem: General: Yes normal to inspection and Yes no pedal edema Objective Data Active Medications Acetaminophen (Acetaminophen 325 Mg Tablet) 650 mg PO Q6H PRN PRN Reason: Pain, Mild (Pain Scale 1-3) Acetaminophen (Acetaminophen Supp 650 Mg Supp.Rect) 650 mg [place] Q4H PRN PRN Reason: fever Aspirin (Aspirin 81 Mg Tab.Chew) 81 mg PO DAILY [facility] Last Admin: 09/10/21 07:35 Dose: 81 mg Documented by: GAUTAM Atorvastatin Calcium (Atorvastatin Calcium 40 Mg Tablet) 40 mg PO BEDTIME [facility] Last Admin: 09/09/21 20:36 Dose: 40 mg Documented by: JAIME Dexamethasone Sodium Phosphate (Dexamethasone Sod Phosphate 4 Mg/Ml Vial) 6 mg IVPUSH DAILY [facility] Stop: 09/19/21 09:01 Last Admin: 09/10/21 09:33 Dose: 6 mg Documented by: GAUTAM Dextrose (Dextrose 50 % 25 Gm/50 Ml Syringe) 25 gm IVPUSH Q15M PRN; Protocol PRN Reason: per Hypoglycemia Standing Ord. Divalproex Sodium (Divalproex Sodium 500 Mg Tablet.) 1,000 mg PO BID [facility] Last Admin: 09/10/21 07:34 Dose: 1,000 mg Documented by: GAUTAM Enoxaparin Sodium (Enoxaparin Sodium 40 Mg/0.4 Ml Syringe) 40 mg SUBCUT Q24H [facility] Last Admin: 09/09/21 21:48 Dose: 40 mg Documented by: JAIME Escitalopram Oxalate (Escitalopram Oxalate 20 Mg Tablet) 20 mg PO DAILY [facility] Last Admin: 09/10/21 07:35 Dose: 20 mg Documented by: GAUTAM Famotidine (Famotidine 20 Mg Tablet) 20 mg PO DAILY [facility] Last Admin: 09/10/21 07:34 Dose: 20 mg Documented by: GAUTAM Folic Acid (Folic Acid 1 Mg Tablet) 1 mg PO DAILY [facility] Last Admin: 09/10/21 07:36 Dose: 1 mg Documented by: GAUTAM Glucose (Glucose Gel 15 Gm Gel..Gram.) 15 gm PO Q15M PRN; Protocol PRN Reason: per Hypoglycemia Standing Ord. Insulin Human Lispro (Insulin Lispro 100 Unit/Ml 3 Ml Vial) 0 unit SUBCUT QIDACHS [facility]; Protocol Last Admin: 09/10/21 11:51 Dose: 2 unit Documented by: GAUTAM Latanoprost (Latanoprost 0.005 % Ophth Emilia 2.5 Ml Drops) 1 drop EYE-BOTH BEDTIME [facility] Last Admin: 09/09/21 20:42 Dose: 1 drop Documented by: JAIME Levothyroxine Sodium (Levothyroxine Sodium 75 Mcg Tablet) 75 mcg PO DAILY@0630 [facility] Last Admin: 09/10/21 05:51 Dose: 75 mcg Documented by: JAIME Loratadine (Loratadine 10 Mg Tablet) 10 mg PO DAILY [facility] Last Admin: 09/10/21 07:36 Dose: 10 mg Documented by: GAUTAM Losartan Potassium (Losartan Potassium 50 Mg Tablet) 100 mg PO DAILY [facility]; Protocol Last Admin: 09/10/21 07:35 Dose: 100 mg Documented by: GAUTAM Melatonin (Melatonin 3 Mg Tablet) 6 mg PO BEDTIME PRN PRN Reason: Insomnia Metoprolol Succinate (Metoprolol Succinate Er 50 Mg Tab.Er.24h) 50 mg PO DAILY [facility]; Protocol Last Admin: 09/10/21 07:34 Dose: 50 mg Documented by: GUATAM Senna (Sennosides 8.6 Mg Tablet) 17.2 mg PO BEDTIME PRN PRN Reason: Constipation Senna (Sennosides 8.6 Mg Tablet) 17.2 mg PO DAILY [facility] Last Admin: 09/10/21 07:34 Dose: 17.2 mg Documented by: GAUTAM Sodium Chloride (0.9 % Sodium Chloride Flush 3 Ml Syringe) 3 ml IVFLUSH QSHIFT [facility] Last Admin: 09/10/21 07:36 Dose: 3 ml Documented by: GAUTAM Labs CBC & Chem 7: 09/10/21 06:28 09/10/21 06:28 Labs: Laboratory Results - last 24 hr 09/09/21 09/09/21 09/10/21 16:02 19:49 06:28 MCV 97.9 MCH 30.4 MCHC 31.1 RDW 15.8 Plt Count 83 L MPV 10.4 Absolute Nucleated RBC 0.000 Nucleated RBC % (auto) 0.0 Anion Gap Estim Creat Clear Calc Estimated GFR POC Glucose 129 H 226 H Fasting Glucose Calcium Magnesium C-Reactive Protein 09/10/21 09/10/21 09/10/21 06:28 07:11 11:11 MCV MCH MCHC RDW Plt Count MPV Absolute Nucleated RBC Nucleated RBC % (auto) Anion Gap 16 Estim Creat Clear Calc 82.5 Estimated GFR > 60 POC Glucose 161 H 165 H Fasting Glucose 169 H Calcium 9.4 Magnesium 2.0 C-Reactive Protein 1.90 H Microbiology Microbiology Results: Microbiology 09/08/21 19:03 Blood Culture - Preliminary Blood - Venous No growth after 24 hours. 09/08/21 19:02 Blood Culture - Preliminary Blood - Venous No growth after 24 hours. Assessment and Plan (1) Encephalopathy: Status: Acute (2) Acute respiratory failure with hypoxia: Status: Acute (3) Pneumonia due to COVID-19 virus: Status: Acute Assessment and Plan: 71F presented as stroke alert for reported slurred speech and left sided weakness, found to have ams, fevers, covid+ # metabolic encephalopathy - likely due to viral sepsis from covid - evaluated by Neuro, recommended treating acute issues, no MRI at this time - head CT showed no acute intracranial process # acute hypoxic respiratory failure - most likely secondary to COVID - desatting on minimal activity - was started on Decadron day 1 # dysphagia - [employer] # 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 due to depakote monitor # hypothyroid synthroid htn losartan, toprol ?history of CVA asa, statin dvt prophylaxis - lovenox Quality Stroke Does the patient have a stroke diagnosis?: No VTE Prior VTE?: No VTE Risk Level:: Medical - moderate - high VTE Device Contraindication: Treatment Not Indicated VTE Drug Contraindication: N/A - Med Ordered
[2021-09-10 15:59] LABS: Glucose, Whole Blood 245 mg/dL (60-115)
--- NOTE | 2021-09-10 16:01 | P.CNID_ITS ---
History of Present Illness Data of Consult Service Date: 09/10/21 Requesting physician: Dakotah Rader Primary Care Provider: Unknown Physician HPI Reason for consult: lethargy She presents with fatigue and weakness She is not able to give good history so duration is unknown to some extent She is COVID positive and has been on RA to 2 liters Review of Systems Verdana 4l Review of Systems: Yes Unobtainable due to mental Verdana 4d condition Verdana 4l Neurologic: Verdana 4d Reports confusion Verdana 4l Psychiatric: Verdana 4d Verdana 4d Psychiatric: Verdana 4d Reports confusion [facility] Past Medical History Medical History Chronic diastolic CHF (congestive heart failure) Chronic idiopathic thrombocytopenia Diabetes Epilepsy HTN (hypertension) Hypothyroid TBI (traumatic brain injury) Family History Family history: reviewed and not pertinent Social History Social History Household Members: None Housing: House Do you presently have visiting nurse or other home services: Yes Patient Tobacco Use Status: Never used Tobacco Advance Directives Date on File: 09/09/21 service: No Current occupational status: disabled Meds Allergies Allergy/AdvReac Type Severity Reaction Status Date / Time No Known Allergies Allergy Unverified 05/07/20 19:37 [No Known Allergies*] Active Medications: Current Medications Acetaminophen (Acetaminophen 325 Mg Tablet) 650 mg PO Q6H PRN PRN Reason: Pain, Mild (Pain Scale 1-3) Acetaminophen (Acetaminophen Supp 650 Mg Supp.Rect) 650 mg [place] Q4H PRN PRN Reason: fever Aspirin (Aspirin 81 Mg Tab.Chew) 81 mg PO DAILY [facility] Last Admin: 09/10/21 07:35 Dose: 81 mg Documented by: Atorvastatin Calcium (Atorvastatin Calcium 40 Mg Tablet) 40 mg PO BEDTIME [facility] Last Admin: 09/09/21 20:36 Dose: 40 mg Documented by: Dexamethasone Sodium Phosphate (Dexamethasone Sod Phosphate 4 Mg/Ml Vial) 6 mg IVPUSH DAILY [facility] Stop: 09/19/21 09:01 Last Admin: 09/10/21 09:33 Dose: 6 mg Documented by: Dextrose (Dextrose 50 % 25 Gm/50 Ml Syringe) 25 gm IVPUSH Q15M PRN; Protocol PRN Reason: per Hypoglycemia Standing Ord. Divalproex Sodium (Divalproex Sodium 500 Mg Tablet.) 1,000 mg PO BID [facility] Last Admin: 09/10/21 07:34 Dose: 1,000 mg Documented by: Enoxaparin Sodium (Enoxaparin Sodium 40 Mg/0.4 Ml Syringe) 40 mg SUBCUT Q24H [facility] Last Admin: 09/09/21 21:48 Dose: 40 mg Documented by: Escitalopram Oxalate (Escitalopram Oxalate 20 Mg Tablet) 20 mg PO DAILY [facility] Last Admin: 09/10/21 07:35 Dose: 20 mg Documented by: Famotidine (Famotidine 20 Mg Tablet) 20 mg PO DAILY [facility] Last Admin: 09/10/21 07:34 Dose: 20 mg Documented by: Folic Acid (Folic Acid 1 Mg Tablet) 1 mg PO DAILY [facility] Last Admin: 09/10/21 07:36 Dose: 1 mg Documented by: Glucose (Glucose Gel 15 Gm Gel..Gram.) 15 gm PO Q15M PRN; Protocol PRN Reason: per Hypoglycemia Standing Ord. Insulin Human Lispro (Insulin Lispro 100 Unit/Ml 3 Ml Vial) 0 unit SUBCUT QIDACHS [facility]; Protocol Last Admin: 09/10/21 11:51 Dose: 2 unit Documented by: Latanoprost (Latanoprost 0.005 % Ophth Emilia 2.5 Ml Drops) 1 drop EYE-BOTH BEDTIME [facility] Last Admin: 09/09/21 20:42 Dose: 1 drop Documented by: Levothyroxine Sodium (Levothyroxine Sodium 75 Mcg Tablet) 75 mcg PO DAILY@0630 [facility] Last Admin: 09/10/21 05:51 Dose: 75 mcg Documented by: Loratadine (Loratadine 10 Mg Tablet) 10 mg PO DAILY [facility] Last Admin: 09/10/21 07:36 Dose: 10 mg Documented by: Losartan Potassium (Losartan Potassium 50 Mg Tablet) 100 mg PO DAILY [facility]; Pro tocol Last Admin: 09/10/21 07:35 Dose: 100 mg Documented by: Melatonin (Melatonin 3 Mg Tablet) 6 mg PO BEDTIME PRN PRN Reason: Insomnia Metoprolol Succinate (Metoprolol Succinate Er 50 Mg Tab.Er.24h) 50 mg PO DAILY [facility]; Protocol Last Admin: 09/10/21 07:34 Dose: 50 mg Documented by: Senna (Sennosides 8.6 Mg Tablet) 17.2 mg PO BEDTIME PRN PRN Reason: Constipation Senna (Sennosides 8.6 Mg Tablet) 17.2 mg PO DAILY [facility] Last Admin: 09/10/21 07:34 Dose: 17.2 mg Documented by: Sodium Chloride (0.9 % Sodium Chloride Flush 3 Ml Syringe) 3 ml IVFLUSH QSHIFT [facility] Last Admin: 09/10/21 07:36 Dose: 3 ml Documented by: Home Medications Medication Instructions Recorded Confirmed Last Taken Type albuterol sulfate 2 puff 09/08/21 09/08/21 Unknown History 90 mcg/actuation INHALATION Q6H PRN aerosol inhaler (Ventolin HFA) atorvastatin 40 1 tab PO BEDTIME 09/08/21 09/08/21 Unknown History mg tablet citalopram 40 mg 1 tab PO DAILY 09/08/21 09/08/21 Unknown History tablet divalproex 500 mg 1,000 mg PO BID 09/08/21 09/08/21 Unknown History tablet,delayed release dulaglutide 0.75 1.5 mg SUBCUT MO 09/08/21 09/09/21 Unknown History mg/0.5 mL subcutaneous pen injector (Trulicity) famotidine 20 mg 1 tab PO DAILY 09/08/21 09/08/21 Unknown History tablet folic acid 1 mg 1 tab PO DAILY 09/08/21 09/08/21 Unknown History tablet insulin degludec 54 unit SUBCUT 09/08/21 09/08/21 Unknown History 100 unit/mL (3 DAILY mL) subcutaneous pen (Tresiba FlexTouch U-100 insulin) ipratropium 0.5 3 ml INHALATION 09/08/21 09/08/21 Unknown History mg-albuterol 3 mg QID PRN (2.5 mg base)/3 mL nebulization soln latanoprost 0.005 1 drp OPHTHALMIC 09/08/21 09/09/21 Unknown History % eye drops (EYE) DAILY levothyroxine 75 1 tab PO DAILY 09/08/21 09/08/21 Unknown History mcg tablet loratadine 10 mg 1 tab PO DAILY 09/08/21 09/08/21 Unknown History tablet (Allergy Relief (loratadine)) losartan 100 mg 1 tab PO DAILY 09/08/21 09/08/21 Unknown History tablet metoprolol 1 tab PO DAILY 09/08/21 09/08/21 Unknown History succinate 50 mg tablet,extended release 24 hr sennosides 8.6 mg 2 tab PO DAILY 09/08/21 09/08/21 Unknown History tablet (senna) aspirin 81 mg 81 mg PO DAILY 09/09/21 09/09/21 Unknown History chewable tablet polyethylene 17 g PO DAILY 09/09/21 09/09/21 Unknown History glycol 3350 17 gram oral powder packet (Miralax) Physical Exam Verdana 4l Vital Signs: Verdana 4d Verdana 4d Vital Signs: Verdana 4d Verdana 4Bd Last Vital Signs Verdana 4d Pharmacy [employer] New 4d Pharmacy [employer] New 4d Temp 97.2 F 09/10/21 15:28 Pharmacy [employer] New 4d Pulse 79 09/10/21 15:28 Pharmacy [employer] New 4d Resp 16 09/10/21 15:28 BP 110/61 09/10/21 15:28 Pulse Ox 95 09/10/21 15:28 BMI result Body Mass Index 43.7 Const: General: confusion Orientation/consciousness: confusion HENMT: Head: Yes normal to inspection Mouth: Normal oral and palatal mucosa present Resp: Effort & Inspection: normal respiratory effort Cardio: Rate: regular rate Rhythm: regular rhythm GI: Palpation (GI): nontender Neuro: General: confusion Results Labs CBC & Chem 7: 09/14/21 06:29 09/14/21 06:29 Labs: Short CBC 09/10/21 Range/Units 06:28 WBC 9.5 (4.8-10.8) X10*3/uL Hgb 13.3 (12.0-16.0) g/dl Hct 42.8 (37.0-47.0) % Plt Count 83 L (160-400) X10*3/uL BMP 09/10/21 06:28 Sodium 141 Potassium 4.8 Chloride 104 Carbon Dioxide 26 BUN 21 H Creatinine 0.78 Calcium 9.4 Microbiology Microbiology Results: Microbiology 09/08/21 19:03 Blood - Venous Blood Culture - Preliminary No growth after 24 hours. 09/08/21 19:02 Blood - Venous Blood Culture - Preliminary No growth after 24 hours. Assessment and Plan (1) Pneumonia due to COVID-19 virus: Status: Acute She has been on room air for some time and has been on 2 liters She has no signs of respiratory distress (2) Encephalopathy: Status: Acute Plan May give Dexamethasone Would not give remdesivir due to low if any oxygen need
--- NOTE | 2021-09-10 16:01 | W.PM.IDCN ---
History of Present Illness Data of Consult Service Date: 09/10/21 Requesting physician: Dakotah Rader Primary Care Provider: Unknown Physician HPI Reason for consult: lethargy She presents with fatigue and weakness She is not able to give good history so duration is unknown to some extent She is COVID positive and has been on RA to 2 liters Review of Systems Review of Systems: Yes Unobtainable due to mental condition Neurologic: Reports confusion Psychiatric: Psychiatric: Reports confusion [facility] Past Medical History Medical History Chronic diastolic CHF (congestive heart failure) Chronic idiopathic thrombocytopenia Diabetes Epilepsy HTN (hypertension) Hypothyroid TBI (traumatic brain injury) Family History Family history: reviewed and not pertinent Social History Social History Household Members: None Housing: House Do you presently have visiting nurse or other home services: Yes Patient Tobacco Use Status: Never used Tobacco Advance Directives Date on File: 09/09/21 service: No Current occupational status: disabled Meds Allergies Allergy/AdvReac Type Severity Reaction Status Date / Time No Known Allergies Allergy Unverified 05/07/20 19:37 [No Known Allergies*] Active Medications: Current Medications Acetaminophen (Acetaminophen 325 Mg Tablet) 650 mg PO Q6H PRN PRN Reason: Pain, Mild (Pain Scale 1-3) Acetaminophen (Acetaminophen Supp 650 Mg Supp.Rect) 650 mg [place] Q4H PRN PRN Reason: fever Aspirin (Aspirin 81 Mg Tab.Chew) 81 mg PO DAILY [facility] [place] Last Admin: 09/10/21 07:35 Dose: 81 mg Documented by: Atorvastatin Calcium (Atorvastatin Calcium 40 Mg Tablet) 40 mg PO BEDTIME [facility] Last Admin: 09/09/21 20:36 Dose: 40 mg Documented by: Dexamethasone Sodium Phosphate (Dexamethasone Sod Phosphate 4 Mg/Ml Vial) 6 mg IVPUSH DAILY [facility] [place] Stop: 09/19/21 09:01 Last Admin: 09/10/21 09:33 Dose: 6 mg Documented by: Dextrose (Dextrose 50 % 25 Gm/50 Ml Syringe) 25 gm IVPUSH Q15M PRN; Protocol PRN Reason: per Hypoglycemia Standing Ord. Divalproex Sodium (Divalproex Sodium 500 Mg Tablet.) 1,000 mg PO BID [facility] [place] Last Admin: 09/10/21 07:34 Dose: 1,000 mg Documented by: Enoxaparin Sodium (Enoxaparin Sodium 40 Mg/0.4 Ml Syringe) 40 mg SUBCUT Q24H [facility] Last Admin: 09/09/21 21:48 Dose: 40 mg Documented by: Escitalopram Oxalate (Escitalopram Oxalate 20 Mg Tablet) 20 mg PO DAILY [facility] [place] Last Admin: 09/10/21 07:35 Dose: 20 mg Documented by: Famotidine (Famotidine 20 Mg Tablet) 20 mg PO DAILY [facility] [place] Last Admin: 09/10/21 07:34 Dose: 20 mg Documented by: Folic Acid (Folic Acid 1 Mg Tablet) 1 mg PO DAILY [facility] [place] Last Admin: 09/10/21 07:36 Dose: 1 mg Documented by: Glucose (Glucose Gel 15 Gm Gel..Gram.) 15 gm PO Q15M PRN; Protocol PRN Reason: per Hypoglycemia Standing Ord. Insulin Human Lispro (Insulin Lispro 100 Unit/Ml 3 Ml Vial) 0 unit SUBCUT QIDACHS [facility] [place]; Protocol Last Admin: 09/10/21 11:51 Dose: 2 unit Documented by: Latanoprost (Latanoprost 0.005 % Ophth Emilia 2.5 Ml Drops) 1 drop EYE-BOTH BEDTIME [facility] [place] Last Admin: 09/09/21 20:42 Dose: 1 drop Documented by: Levothyroxine Sodium (Levothyroxine Sodium 75 Mcg Tablet) 75 mcg PO DAILY@0630 [facility] Last Admin: 09/10/21 05:51 Dose: 75 mcg Documented by: Loratadine (Loratadine 10 Mg Tablet) 10 mg PO DAILY [facility] [place] Last Admin: 09/10/21 07:36 Dose: 10 mg Documented by: Losartan Potassium (Losartan Potassium 50 Mg Tablet) 100 mg PO DAILY [facility] [place]; Protocol Last Admin: 09/10/21 07:35 Dose: 100 mg Documented by: Melatonin (Melatonin 3 Mg Tablet) 6 mg PO BEDTIME PRN PRN Reason: Insomnia Metoprolol Succinate (Metoprolol Succinate Er 50 Mg Tab.Er.24h) 50 mg PO DAILY [facility] [place]; Protocol Last Admin: 09/10/21 07:34 Dose: 50 mg Documented by: Senna (Sennosides 8.6 Mg Tablet) 17.2 mg PO BEDTIME PRN PRN Reason: Constipation Senna (Sennosides 8.6 Mg Tablet) 17.2 mg PO DAILY [facility] [place] Last Admin: 09/10/21 07:34 Dose: 17.2 mg Documented by: Sodium Chloride (0.9 % Sodium Chloride Flush 3 Ml Syringe) 3 ml IVFLUSH QSHIFT [facility] Last Admin: 09/10/21 07:36 Dose: 3 ml Documented by: Home Medications Medication Instructions Recorded Confirmed Last Taken Type albuterol sulfate 90 mcg/actuation 2 puff INHALATION Q6H PRN 09/08/21 09/08/21 Unknown History aerosol inhaler (Ventolin HFA) atorvastatin 40 mg tablet 1 tab PO BEDTIME 09/08/21 09/08/21 Unknown History citalopram 40 mg tablet 1 tab PO DAILY 09/08/21 09/08/21 Unknown History divalproex 500 mg tablet,delayed 1,000 mg PO BID 09/08/21 09/08/21 Unknown History release dulaglutide 0.75 mg/0.5 mL 1.5 mg SUBCUT MO 09/08/21 09/09/21 Unknown History subcutaneous pen injector (Trulicity) famotidine 20 mg tablet 1 tab PO DAILY 09/08/21 09/08/21 Unknown History folic acid 1 mg tablet 1 tab PO DAILY 09/08/21 09/08/21 Unknown History insulin degludec 100 unit/mL (3 54 unit SUBCUT DAILY 09/08/21 09/08/21 Unknown History mL) subcutaneous pen (Tresiba FlexTouch U-100 insulin) ipratropium 0.5 mg-albuterol 3 mg 3 ml INHALATION QID PRN 09/08/21 09/08/21 Unknown History (2.5 mg base)/3 mL nebulization soln latanoprost 0.005 % eye drops 1 drp OPHTHALMIC (EYE) DAILY 09/08/21 09/09/21 Unknown History levothyroxine 75 mcg tablet 1 tab PO DAILY 09/08/21 09/08/21 Unknown History loratadine 10 mg tablet (Allergy 1 tab PO DAILY 09/08/21 09/08/21 Unknown History Relief (loratadine)) losartan 100 mg tablet 1 tab PO DAILY 09/08/21 09/08/21 Unknown History metoprolol succinate 50 mg 1 tab PO DAILY 09/08/21 09/08/21 Unknown History tablet,extended release 24 hr sennosides 8.6 mg tablet (senna) 2 tab PO DAILY 09/08/21 09/08/21 Unknown History aspirin 81 mg chewable tablet 81 mg PO DAILY 09/09/21 09/09/21 Unknown History polyethylene glycol 3350 17 gram 17 g PO DAILY 09/09/21 09/09/21 Unknown History oral powder packet (Miralax) Physical Exam Vital Signs: Vital Signs: Last Vital Signs Temp 97.2 F 09/10/21 15:28 Pulse 79 09/10/21 15:28 Resp 16 09/10/21 15:28 BP 110/61 09/10/21 15:28 Pulse Ox 95 09/10/21 15:28 BMI result Body Mass Index 43.7 Const: General: confusion Orientation/consciousness: confusion HENMT: Head: Yes normal to inspection Mouth: Normal oral and palatal mucosa present Resp: Effort & Inspection: normal respiratory effort Cardio: Rate: regular rate Rhythm: regular rhythm GI: Palpation (GI): nontender Neuro: General: confusion Results Labs CBC & Chem 7: 09/14/21 06:29 09/14/21 06:29 Labs: Short CBC 09/10/21 Range/Units 06:28 WBC 9.5 (4.8-10.8) X10*3/uL Hgb 13.3 (12.0-16.0) g/dl Hct 42.8 (37.0-47.0) % Plt Count 83 L (160-400) X10*3/uL BMP 09/10/21 06:28 Sodium 141 Potassium 4.8 Chloride 104 Carbon Dioxide 26 BUN 21 H Creatinine 0.78 Calcium 9.4 Microbiology Microbiology Results: Microbiology 09/08/21 19:03 Blood - Venous Blood Culture - Preliminary No growth after 24 hours. 09/08/21 19:02 Blood - Venous Blood Culture - Preliminary No growth after 24 hours. Assessment and Plan (1) Pneumonia due to COVID-19 virus: Status: Acute She has been on room air for some time and has been on 2 liters She has no signs of respiratory distress (2) Encephalopathy: Status: Acute Plan May give Dexamethasone Would not give remdesivir due to low if any oxygen need
[2021-09-10 20:26] LABS: Glucose, Whole Blood 246 mg/dL (60-115)
[2021-09-10] MEDS: Enoxaparin Sodium 40 MG/0.4 ML SYRINGE SUBCUT (21:17)
[2021-09-10] MEDS: Atorvastatin Calcium 40 MG TABLET PO (21:18)
[2021-09-10] MEDS: Latanoprost 0.005 % Ophth Sol 2.5 ML DROPS 1 DROP EYE-BOTH (21:19)
[2021-09-11 02:44] VITALS: PULSE 62; RESP 20; TEMP 36.4; O2SAT 96
[2021-09-11] MEDS: Levothyroxine Sodium 75 MCG TABLET PO (06:35)
[2021-09-11 07:38] LABS: Glucose, Whole Blood 170 mg/dL (60-115)
[2021-09-11] MEDS: Insulin Lispro 100 UNIT/ML 3 ML VIAL SUBCUT ×4 (07:50→21:07)
[2021-09-11] MEDS: Aspirin 81 MG TAB.CHEW PO (07:50)
[2021-09-11] MEDS: 0.9 % Sodium Chloride Flush 3 ML SYRINGE IVFLUSH ×3 (07:50→21:08)
[2021-09-11] MEDS: Divalproex Sodium 500 MG TABLET.DR 1000 MG PO ×2 (07:51→21:07)
[2021-09-11] MEDS: Escitalopram Oxalate 20 MG TABLET PO (07:51)
[2021-09-11] MEDS: Sennosides 8.6 MG TABLET 17.2 MG PO (07:51)
[2021-09-11] MEDS: Famotidine 20 MG TABLET PO (07:51)
[2021-09-11] MEDS: Folic Acid 1 MG TABLET PO (07:51)
[2021-09-11] MEDS: Losartan Potassium 50 MG TABLET 100 MG PO (07:51)
[2021-09-11] MEDS: Loratadine 10 MG TABLET PO (07:51)
[2021-09-11] MEDS: Metoprolol Succinate ER 50 MG TAB.ER.24H PO (07:51)
[2021-09-11] MEDS: dexAMETHasone sod phosphate 4 MG/ML VIAL 6 MG IVPUSH (07:52)
[2021-09-11 08:00] VITALS: BP 157/90; PULSE 100; RESP 18; TEMP 37; O2SAT 95
[2021-09-11 11:19] LABS: Glucose, Whole Blood 235 mg/dL (60-115)
[2021-09-11 11:35] VITALS: BP 123/55; PULSE 78; RESP 18; TEMP 36.6; O2SAT 98
--- NOTE | 2021-09-11 12:39 | HO.PM.IMPN ---
Subjective Subjective Date of Service: 09/11/21 Interval History: pt alert and oriented to self and place. reports no acute complaint. reports feeling better. no overnight events. no CP, no worsening SOB, no abd pain, no n/v, no diarrhea or constipation. no urinary sx Review of Systems Review of Systems: Yes all other systems are reviewed and are negative Physical Exam Vital Signs: Vital Signs: Last Vital Signs Temp 97.8 F 09/11/21 11:35 Pulse 78 09/11/21 11:35 Resp 18 09/11/21 11:35 BP 123/55 L 09/11/21 11:35 Pulse Ox 98 09/11/21 11:35 BMI result Body Mass Index 43.7 Const: General: cooperative and no acute distress Orientation/consciousness: patient oriented x3 Resp: Effort & Inspection: normal respiratory effort Auscultation: clear to auscultation bilaterally Cardio: Rate: regular rate Rhythm: regular rhythm GI: Palpation (GI): Soft to palpation Auscultation: normal bowel sounds Neuro: General: patient oriented x3 Extrem: General: Yes normal to inspection and Yes no pedal edema Objective Data Active Medications Acetaminophen (Acetaminophen 325 Mg Tablet) 650 mg PO Q6H PRN PRN Reason: Pain, Mild (Pain Scale 1-3) Acetaminophen (Acetaminophen Supp 650 Mg Supp.Rect) 650 mg [place] Q4H PRN PRN Reason: fever Aspirin (Aspirin 81 Mg Tab.Chew) 81 mg PO DAILY [facility] Last Admin: 09/11/21 07:50 Dose: 81 mg Documented by: GAUTAM Atorvastatin Calcium (Atorvastatin Calcium 40 Mg Tablet) 40 mg PO BEDTIME [facility] Last Admin: 09/10/21 21:18 Dose: 40 mg Documented by: HIRAL Dexamethasone Sodium Phosphate (Dexamethasone Sod Phosphate 4 Mg/Ml Vial) 6 mg IVPUSH DAILY [facility] Stop: 09/19/21 09:01 Last Admin: 09/11/21 07:52 Dose: 6 mg Documented by: GAUTAM Dextrose (Dextrose 50 % 25 Gm/50 Ml Syringe) 25 gm IVPUSH Q15M PRN; Protocol PRN Reason: per Hypoglycemia Standing Ord. Divalproex Sodium (Divalproex Sodium 500 Mg Tablet.) 1,000 mg PO BID [facility] Last Admin: 09/11/21 07:51 Dose: 1,000 mg Documented by: GAUTAM Enoxaparin Sodium (Enoxaparin Sodium 40 Mg/0.4 Ml Syringe) 40 mg SUBCUT Q24H [facility] Last Admin: 09/10/21 21:17 Dose: 40 mg Documented by: HIRAL Escitalopram Oxalate (Escitalopram Oxalate 20 Mg Tablet) 20 mg PO DAILY [facility] Last Admin: 09/11/21 07:51 Dose: 20 mg Documented by: GAUTAM Famotidine (Famotidine 20 Mg Tablet) 20 mg PO DAILY [facility] Last Admin: 09/11/21 07:51 Dose: 20 mg Documented by: GAUTAM Folic Acid (Folic Acid 1 Mg Tablet) 1 mg PO DAILY [facility] Last Admin: 09/11/21 07:51 Dose: 1 mg Documented by: GAUTAM Glucose (Glucose Gel 15 Gm Gel..Gram.) 15 gm PO Q15M PRN; Protocol PRN Reason: per Hypoglycemia Standing Ord. Insulin Human Lispro (Insulin Lispro 100 Unit/Ml 3 Ml Vial) 0 unit SUBCUT QIDACHS [facility]; Protocol Last Admin: 09/11/21 11:46 Dose: 4 unit Documented by: GAUTAM Latanoprost (Latanoprost 0.005 % Ophth Emilia 2.5 Ml Drops) 1 drop EYE-BOTH BEDTIME [facility] Last Admin: 09/10/21 21:19 Dose: 1 drop Documented by: HIRAL Levothyroxine Sodium (Levothyroxine Sodium 75 Mcg Tablet) 75 mcg PO DAILY@0630 [facility] Last Admin: 09/11/21 06:35 Dose: 75 mcg Documented by: HIRAL Loratadine (Loratadine 10 Mg Tablet) 10 mg PO DAILY [facility] Last Admin: 09/11/21 07:51 Dose: 10 mg Documented by: GAUTAM Losartan Potassium (Losartan Potassium 50 Mg Tablet) 100 mg PO DAILY [facility]; Protocol Last Admin: 09/11/21 07:51 Dose: 100 mg Documented by: GAUTAM Melatonin (Melatonin 3 Mg Tablet) 6 mg PO BEDTIME PRN PRN Reason: Insomnia Metoprolol Succinate (Metoprolol Succinate Er 50 Mg Tab.Er.24h) 50 mg PO DAILY [facility]; Protocol Last Admin: 09/11/21 07:51 Dose: 50 mg Documented by: GAUTAM Senna (Sennosides 8.6 Mg Tablet) 17.2 mg PO BEDTIME PRN PRN Reason: Constipation Senna (Sennosides 8.6 Mg Tablet) 17.2 mg PO DAILY [facility] Last Admin: 09/11/21 07:51 Dose: 17.2 mg Documented by: GAUTAM Sodium Chloride (0.9 % Sodium Chloride Flush 3 Ml Syringe) 3 ml IVFLUSH QSHIFT [facility] Last Admin: 09/11/21 07:50 Dose: 3 ml Documented by: GAUTAM Labs CBC & Chem 7: 09/10/21 06:28 09/10/21 06:28 Labs: Laboratory Results - last 24 hr 09/10/21 09/10/21 09/11/21 15:33 20:18 07:27 POC Glucose 245 H 246 H 170 H 09/11/21 11:12 POC Glucose 235 H Microbiology Microbiology Results: Microbiology 09/08/21 19:03 Blood Culture - Preliminary Blood - Venous No growth after 48 hours. 09/08/21 19:02 Blood Culture - Preliminary Blood - Venous No growth after 48 hours. Assessment and Plan (1) Pneumonia due to COVID-19 virus: Status: Acute (2) Acute respiratory failure with hypoxia: Status: Acute (3) Encephalopathy: Status: Acute Assessment and Plan: 71F presented as stroke alert for reported slurred speech and left sided weakness, found to have ams, fevers, covid+ # metabolic encephalopathy- resolved - likely due to viral sepsis from covid - back to baseline, alert and oriented to self and place. 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
[2021-09-11 15:26] VITALS: BP 108/55; PULSE 80; RESP 20; TEMP 36.7; O2SAT 99
[2021-09-11 16:09] LABS: Glucose, Whole Blood 255 mg/dL (60-115)
[2021-09-11 19:10] VITALS: BP 108/66; PULSE 118; RESP 20; TEMP 36.4; O2SAT 93
[2021-09-11 19:57] LABS: Glucose, Whole Blood 247 mg/dL (60-115)
[2021-09-11] MEDS: Enoxaparin Sodium 40 MG/0.4 ML SYRINGE SUBCUT (21:07)
[2021-09-11] MEDS: Atorvastatin Calcium 40 MG TABLET PO (21:07)
[2021-09-11] MEDS: Latanoprost 0.005 % Ophth Sol 2.5 ML DROPS 1 DROP EYE-BOTH (21:12)
[2021-09-11 23:09] VITALS: BP 109/65; PULSE 80; RESP 20; TEMP 36.7; O2SAT 92
[2021-09-12] VITALS (7 sets, daily range): BP systolic 121–149; BP diastolic 57–86; PULSE 55–112; RESP 18–20; TEMP 36.4–36.8; O2SAT 90–100
[2021-09-12] MEDS: Levothyroxine Sodium 75 MCG TABLET PO (05:28)
[2021-09-12 06:53] LABS: PLT CLUMP 1; Red Blood Count 3.68 X10*6/uL (4.20-5.50); Red Cell Distribution Width 15.4 % (11.0-16.0); SCAN SMEAR FLAG 1
[2021-09-12 06:55] LABS: Basophils Percent Auto 0.3 % (0-2); Eosinophils Percent Auto 0.1 % (0-4); Hemoglobin 11.4 g/dl (12.0-16.0); Imm Gran Abs Auto 0.38 X10*3/uL (0.00-0.03); Imm Gran Pct Auto 4.1 % (0.0-0.4); Lymphocytes Absolute Auto 3.6 X10*3/uL (1.2-4.9); Lymphocytes Percent Auto 39.2 % (20-40); MANUAL DIFF FLAG SCAN; Mean Corpuscular HGB Conc 31.7 g/dl (31.0-35.0); Mean Corpuscular Volume 97.8 fL (80.0-98.0); Monocytes Absolute Auto 0.9 X10*3/uL (0.1-1.2); Monocytes Percent Auto 9.3 % (2-11); Neutrophils Absolute Auto 4.3 x10*3/uL (2.0-8.3)
[2021-09-12 07:13] LABS: Platelet Count 78 X10*3/uL (160-400); SLIDE REVIEW VERIFIED; White Blood Count 9.3 X10*3/uL (4.8-10.8)
[2021-09-12 07:36] LABS: Glucose, Whole Blood 151 mg/dL (60-115)
[2021-09-12] MEDS: Insulin Lispro 100 UNIT/ML 3 ML VIAL SUBCUT ×4 (07:52→20:04)
[2021-09-12] MEDS: Divalproex Sodium 500 MG TABLET.DR 1000 MG PO ×2 (07:54→20:04)
[2021-09-12] MEDS: Metoprolol Succinate ER 50 MG TAB.ER.24H PO (07:54)
[2021-09-12] MEDS: dexAMETHasone sod phosphate 4 MG/ML VIAL 6 MG IVPUSH (07:54)
[2021-09-12] MEDS: 0.9 % Sodium Chloride Flush 3 ML SYRINGE IVFLUSH ×3 (07:54→20:05)
[2021-09-12] MEDS: Escitalopram Oxalate 20 MG TABLET PO (07:54)
[2021-09-12] MEDS: Aspirin 81 MG TAB.CHEW PO (07:55)
[2021-09-12] MEDS: Sennosides 8.6 MG TABLET 17.2 MG PO (07:55)
[2021-09-12] MEDS: Famotidine 20 MG TABLET PO (07:55)
[2021-09-12] MEDS: Loratadine 10 MG TABLET PO (07:55)
[2021-09-12] MEDS: Losartan Potassium 50 MG TABLET 100 MG PO (07:55)
[2021-09-12] MEDS: Folic Acid 1 MG TABLET PO (07:55)
[2021-09-12 11:15] LABS: Glucose, Whole Blood 275 mg/dL (60-115)
--- NOTE | 2021-09-12 12:40 | HO.PM.IMPN ---
Subjective Subjective Date of Service: 09/12/21 Interval History: Pt seen and examined at bedside. she is awake, alert and oriented to self and place. she denies any worsening SOB, no chest pain, no abd pain, no n/v, no urinary sx. Review of Systems Review of Systems: Yes all other systems are reviewed and are negative Physical Exam Vital Signs: Vital Signs: Last Vital Signs Temp 97.8 F 09/12/21 11:56 Pulse 57 09/12/21 11:56 Resp 18 09/12/21 11:56 BP 149/68 H 09/12/21 11:56 Pulse Ox 97 09/12/21 11:56 BMI result Body Mass Index 43.7 Const: General: cooperative and no acute distress Resp: Effort & Inspection: normal respiratory effort Auscultation: clear to auscultation bilaterally Cardio: Rate: regular rate Rhythm: regular rhythm GI: Palpation (GI): Soft to palpation Auscultation: normal bowel sounds Extrem: General: Yes normal to inspection Objective Data Active Medications Acetaminophen (Acetaminophen 325 Mg Tablet) 650 mg PO Q6H PRN PRN Reason: Pain, Mild (Pain Scale 1-3) Acetaminophen (Acetaminophen Supp 650 Mg Supp.Rect) 650 mg [place] Q4H PRN PRN Reason: fever Aspirin (Aspirin 81 Mg Tab.Chew) 81 mg PO DAILY [facility] Last Admin: 09/12/21 07:55 Dose: 81 mg Documented by: GAUTAM Atorvastatin Calcium (Atorvastatin Calcium 40 Mg Tablet) 40 mg PO BEDTIME [facility] Last Admin: 09/11/21 21:07 Dose: 40 mg Documented by: HIRAL Dexamethasone Sodium Phosphate (Dexamethasone Sod Phosphate 4 Mg/Ml Vial) 6 mg IVPUSH DAILY [facility] Stop: 09/19/21 09:01 Last Admin: 09/12/21 07:54 Dose: 6 mg Documented by: GAUTAM Dextrose (Dextrose 50 % 25 Gm/50 Ml Syringe) 25 gm IVPUSH Q15M PRN; Protocol PRN Reason: per Hypoglycemia Standing Ord. Divalproex Sodium (Divalproex Sodium 500 Mg Tablet.) 1,000 mg PO BID [facility] Last Admin: 09/12/21 07:54 Dose: 1,000 mg Documented by: GAUTAM Escitalopram Oxalate (Escitalopram Oxalate 20 Mg Tablet) 20 mg PO DAILY [facility] Last Admin: 09/12/21 07:54 Dose: 20 mg Documented by: GAUTAM Famotidine (Famotidine 20 Mg Tablet) 20 mg PO DAILY [facility] Last Admin: 09/12/21 07:55 Dose: 20 mg Documented by: GAUTAM Folic Acid (Folic Acid 1 Mg Tablet) 1 mg PO DAILY [facility] Last Admin: 09/12/21 07:55 Dose: 1 mg Documented by: GAUTAM Glucose (Glucose Gel 15 Gm Gel..Gram.) 15 gm PO Q15M PRN; Protocol PRN Reason: per Hypoglycemia Standing Ord. Insulin Human Lispro (Insulin Lispro 100 Unit/Ml 3 Ml Vial) 0 unit SUBCUT QIDACHS [facility]; Protocol Last Admin: 09/12/21 11:47 Dose: 6 unit Documented by: GAUTAM Latanoprost (Latanoprost 0.005 % Ophth Emilia 2.5 Ml Drops) 1 drop EYE-BOTH BEDTIME [facility] Last Admin: 09/11/21 21:12 Dose: 1 drop Documented by: HIRAL Levothyroxine Sodium (Levothyroxine Sodium 75 Mcg Tablet) 75 mcg PO DAILY@0630 [facility] Last Admin: 09/12/21 05:28 Dose: 75 mcg Documented by: HIRAL Loratadine (Loratadine 10 Mg Tablet) 10 mg PO DAILY [facility] Last Admin: 09/12/21 07:55 Dose: 10 mg Documented by: GAUTAM Losartan Potassium (Losartan Potassium 50 Mg Tablet) 100 mg PO DAILY [facility]; Protocol Last Admin: 09/12/21 07:55 Dose: 100 mg Documented by: GAUTAM Melatonin (Melatonin 3 Mg Tablet) 6 mg PO BEDTIME PRN PRN Reason: Insomnia Metoprolol Succinate (Metoprolol Succinate Er 50 Mg Tab.Er.24h) 50 mg PO DAILY [facility]; Protocol Last Admin: 09/12/21 07:54 Dose: 50 mg Documented by: GAUTAM Senna (Sennosides 8.6 Mg Tablet) 17.2 mg PO BEDTIME PRN PRN Reason: Constipation Senna (Sennosides 8.6 Mg Tablet) 17.2 mg PO DAILY [facility] Last Admin: 09/12/21 07:55 Dose: 17.2 mg Documented by: GAUTAM Sodium Chloride (0.9 % Sodium Chloride Flush 3 Ml Syringe) 3 ml IVFLUSH QSHIFT [facility] Last Admin: 09/12/21 07:54 Dose: 3 ml Documented by: GAUTAM Labs CBC & Chem 7: 09/12/21 06:29 09/10/21 06:28 Labs: Laboratory Results - last 24 hr 09/11/21 09/11/21 09/12/21 16:03 19:51 06:29 MCV 97.8 MCH 31.0 MCHC 31.7 RDW 15.4 Plt Count 78 L MPV 11.0 Immature Gran % (Auto) 4.1 H Neut % (Auto) 47.0 Lymph % (Auto) 39.2 Hitchcock % (Auto) 9.3 Eos % (Auto) 0.1 Baso % (Auto) 0.3 Lymph # (Auto) 3.6 Hitchcock # (Auto) 0.9 Eos # (Auto) 0.0 Baso # (Auto) 0.0 Abs Immat Gran (auto) 0.38 H Absolute Neuts (auto) 4.3 Absolute Nucleated RBC 0.000 Nucleated RBC % (auto) 0.0 Smear Tech's Comments VERIFIED POC Glucose 255 H 247 H 09/12/21 09/12/21 07:23 11:05 MCV MCH MCHC RDW Plt Count MPV Immature Gran % (Auto) Neut % (Auto) Lymph % (Auto) Hitchcock % (Auto) Eos % (Auto) Baso % (Auto) Lymph # (Auto) Hitchcock # (Auto) Eos # (Auto) Baso # (Auto) Abs Immat Gran (auto) Absolute Neuts (auto) Absolute Nucleated RBC Nucleated RBC % (auto) Smear Tech's Comments POC Glucose 151 H 275 H Assessment and Plan (1) Pneumonia due to COVID-19 virus: Status: Acute (2) Acute respiratory failure with hypoxia: Status: Acute (3) Encephalopathy: Status: Acute Assessment and Plan: 71F presented as stroke alert for reported slurred speech and left sided weakness, found to have ams, fevers, covid+ # acute hypoxic respiratory failure - stable - continues to require 2L of O2 - most likely secondary to COVID - Decadron day 3 - will titrate O2 off as tolerated # metabolic encephalopathy- resolved - likely due to viral sepsis from covid - back to baseline, alert and oriented to self and place. 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
[2021-09-12 16:14] LABS: Glucose, Whole Blood 260 mg/dL (60-115)
[2021-09-12 19:44] LABS: Glucose, Whole Blood 309 mg/dL (60-115)
[2021-09-12] MEDS: Atorvastatin Calcium 40 MG TABLET PO (20:04)
[2021-09-12] MEDS: Latanoprost 0.005 % Ophth Sol 2.5 ML DROPS 1 DROP EYE-BOTH (20:05)
[2021-09-13 03:18] VITALS: BP 132/67; PULSE 58; RESP 16; TEMP 35.8; O2SAT 95
[2021-09-13] MEDS: Levothyroxine Sodium 75 MCG TABLET PO (05:51)
[2021-09-13 07:18] VITALS: BP 163/71; PULSE 58; RESP 20; TEMP 36.9; O2SAT 100
[2021-09-13 07:38] LABS: Glucose, Whole Blood 158 mg/dL (60-115)
[2021-09-13] MEDS: 0.9 % Sodium Chloride Flush 3 ML SYRINGE IVFLUSH ×3 (07:48→21:21)
[2021-09-13] MEDS: Sennosides 8.6 MG TABLET 17.2 MG PO (07:48)
[2021-09-13] MEDS: Aspirin 81 MG TAB.CHEW PO (07:49)
[2021-09-13] MEDS: Loratadine 10 MG TABLET PO (07:49)
[2021-09-13] MEDS: Escitalopram Oxalate 20 MG TABLET PO (07:50)
[2021-09-13] MEDS: Losartan Potassium 50 MG TABLET 100 MG PO (07:50)
[2021-09-13] MEDS: Divalproex Sodium 500 MG TABLET.DR 1000 MG PO ×2 (07:51→21:21)
[2021-09-13] MEDS: Famotidine 20 MG TABLET PO (07:52)
[2021-09-13] MEDS: Folic Acid 1 MG TABLET PO (07:52)
[2021-09-13] MEDS: Metoprolol Succinate ER 50 MG TAB.ER.24H PO (07:53)
[2021-09-13] MEDS: dexAMETHasone sod phosphate 4 MG/ML VIAL 6 MG IVPUSH (07:53)
[2021-09-13] MEDS: Insulin Lispro 100 UNIT/ML 3 ML VIAL SUBCUT ×4 (08:01→21:21)
--- NOTE | 2021-09-13 10:54 | PM.DS ---
DS: Providers Provider Date of Service: 09/13/21 Date of admission: 09/08/21 21:25 Primary care physician: Unknown Physician Consults: 09/08/21 21:47 Consult to Infectious Diseases Routine Consulting Provider: Betsy Joyce Reason for consultation: COVID-19 positve. 09/09/21 08:14 Consult to Neurology Routine Consulting Provider: [facility] Reason for consultation: ams, left sided weakness DS: Diagnosis Discharge Diagnosis (1) Pneumonia due to COVID-19 virus: Status: Acute (2) Acute respiratory failure with hypoxia: Status: Acute (3) Encephalopathy: Status: Acute DS: Summary Hospital Course Hospital Course: patient was admitted for metabolic encephalopathy due to covid pneumonia with viral sepsis. she was initially treated symptomatically with tylenol and encephalopathy resolved. she was seen by neuro for question of left sided weakness and slurred speech. this was felt to be secondary to encephalopathy and further stroke work up was not recommended. patient was intitially not hypoxic, she did later develop some hypoxia requiring 2L o2, she was then started on decadron. she is now back on room air and close to baseline, she will be discharged on 5 more days of prednisone. Time Spent with Patient Time attestation: Total time spent providing and/or coordinating discharge services: Discharge coordination time: Greater than 30 minutes Quality: Stroke Does the patient have a stroke diagnosis?: No Physical Exam Vital Signs: Vital Signs: Last Vital Signs Temp 98.4 F 09/13/21 07:18 Pulse 58 09/13/21 07:18 Resp 20 09/13/21 07:18 BP 163/71 H 09/13/21 07:18 Pulse Ox 100 09/13/21 07:18 BMI result Body Mass Index 43.7 Const General:?cooperative and no acute distress Resp Effort & Inspection:?normal respiratory effort Auscultation:?clear to auscultation bilaterally Cardio Rate:?regular rate Rhythm:?regular rhythm GI Palpation (GI):?Soft to palpation Auscultation:?normal bowel sounds Extrem General:?Yes normal to inspection DS: Data Data Completed and Pending Labs on day of discharge: Laboratory Results - last 24 hr 09/12/21 09/12/21 09/12/21 11:05 16:08 19:38 POC Glucose 275 H 260 H 309 H 09/13/21 07:25 POC Glucose 158 H Preliminary micro results at discharge 09/08/21 19:03 Blood Culture - Preliminary Blood - Venous No growth after 48 hours. 09/08/21 19:02 Blood Culture - Preliminary Blood - Venous No growth after 48 hours. Discharge Plan Discharge Patient Disposition: Home Health Service Discharge Diagnosis: covid Referrals: Physician,Unknown J [Physician] - 1 Week Discharge Medications: New prednisone 20 mg tablet 40 mg PO DAILY Qty: 10 RF: 0 Continued latanoprost 0.005 % drops 1 drp ophthalmic (eye) DAILY RF: 0 atorvastatin 40 mg tablet 1 tab PO BEDTIME RF: 0 sennosides [senna] 8.6 mg tablet 2 tab PO DAILY RF: 0 ipratropium-albuterol 0.5 mg-3 mg(2.5 mg base)/3 mL solution for nebulization 3 ml inhalation QID PRN (Reason: Shortness Of Breath Or Wheezing) RF: 0 citalopram 40 mg tablet 1 tab PO DAILY RF: 0 metoprolol succinate 50 mg tablet extended release 24 hr 1 tab PO DAILY RF: 0 divalproex 500 mg tablet,delayed release (DR/EC) 1,000 mg PO BID RF: 0 levothyroxine 75 mcg tablet 1 tab PO DAILY RF: 0 famotidine 20 mg tablet 1 tab PO DAILY RF: 0 folic acid 1 mg tablet 1 tab PO DAILY RF: 0 albuterol sulfate [Ventolin HFA] 90 mcg/actuation HFA aerosol inhaler 2 puff inhalation Q6H PRN (Reason: Wheezing) RF: 0 losartan 100 mg tablet 1 tab PO DAILY RF: 0 loratadine [Allergy Relief (loratadine)] 10 mg tablet 1 tab PO DAILY RF: 0 Tresiba FlexTouch U-100 100 unit/mL (3 mL) insulin pen 54 unit subcut DAILY RF: 0 Trulicity 0.75 mg/0.5 mL pen injector 1.5 mg subcut MO RF: 0 polyethylene glycol 3350 [Miralax] 17 gram Powder In Packet 17 g PO DAILY RF: 0 aspirin 81 mg Tablet,Chewable 81 mg PO DAILY RF: 0 Diet: advance to usual diet Activity on Discharge: As tolerated Stand Alone Forms: Patient Portal Discharge page Care Plan Goals: recovery Health Concerns: covid Plan of Treatment: prednisone Assessment: see above
[2021-09-13 11:09] VITALS: BP 140/67; PULSE 55; RESP 20; TEMP 36.2; O2SAT 96
--- NOTE | 2021-09-13 11:31 | MHC.CM.PN ---
Addendum entered by Juana Emerson 09/13/21 12:07: Discharge is on hold today.The patient had 1 episode diarrhea today. A stool spec is ordered. The HCP/ has been notified. BLS has been cancelled. Original Note: IMM 09/13/21 Female 71 DX AMS Covid+ She is discharged today to home. She receives services thru [facility] and [facility]. Her HCP, has been notified that the Patient will discharge today. She requested a 5pm pick remover. BLS scheduled for 5pm. [facility] AlondraCONNOR has been notified of discharge today.
[2021-09-13 11:34] LABS: Glucose, Whole Blood 211 mg/dL (60-115)
--- NOTE | 2021-09-13 11:53 | P.PNIM_ITS ---
Subjective Subjective Date of Service: 09/13/21 Interval History: cc: ams interval history: mental status at baseline, now with diarrhea Cardiovascular Cardiovascular: Reports no additional cardiovascular complaints Respiratory Respiratory: Reports no additional respiratory complaints Physical Exam Vital Signs: Vital Signs: Last Vital Signs Temp 97.2 F 09/13/21 11:09 Pulse 55 09/13/21 11:09 Resp 20 09/13/21 11:09 BP 140/67 H 09/13/21 11:09 Pulse Ox 96 09/13/21 11:09 BMI result Body Mass Index 43.7 General: AO X 3, no acute distress Resp: CTA bilateral, no accessory muscles used CVS: S1,S2,RRR GI: soft, non tender, non distended Neuro: right hemiparesis Psych: appropriate affect, appropriate insight Objective Data Active Medications Acetaminophen (Acetaminophen 325 Mg Tablet) 650 mg PO Q6H PRN PRN Reason: Pain, Mild (Pain Scale 1-3) Acetaminophen (Acetaminophen Supp 650 Mg Supp.Rect) 650 mg [place] Q4H PRN PRN Reason: fever Aspirin (Aspirin 81 Mg Tab.Chew) 81 mg PO DAILY [facility] Last Admin: 09/13/21 07:49 Dose: 81 mg Documented by: IRA Atorvastatin Calcium (Atorvastatin Calcium 40 Mg Tablet) 40 mg PO BEDTIME [facility] Last Admin: 09/12/21 20:04 Dose: 40 mg Documented by: NIKKI Dexamethasone Sodium Phosphate (Dexamethasone Sod Phosphate 4 Mg/Ml Vial) 6 mg IVPUSH DAILY [facility] Stop: 09/19/21 09:01 Last Admin: 09/13/21 07:53 Dose: 6 mg Documented by: IRA Dextrose (Dextrose 50 % 25 Gm/50 Ml Syringe) 25 gm IVPUSH Q15M PRN; Protocol PRN Reason: per Hypoglycemia Standing Ord. Divalproex Sodium (Divalproex Sodium 500 Mg Tablet.) 1,000 mg PO BID [facility] Last Admin: 09/13/21 07:51 Dose: 1,000 mg Documented by: IRA Escitalopram Oxalate (Escitalopram Oxalate 20 Mg Tablet) 20 mg PO DAILY [facility] Last Admin: 09/13/21 07:50 Dose: 20 mg Documented by: IRA Famotidine (Famotidine 20 Mg Tablet) 20 mg PO DAILY [facility] Last Admin: 09/13/21 07:52 Dose: 20 mg Documented by: IRA Folic Acid (Folic Acid 1 Mg Tablet) 1 mg PO DAILY [facility] Last Admin: 09/13/21 07:52 Dose: 1 mg Documented by: IRA Glucose (Glucose Gel 15 Gm Gel..Gram.) 15 gm PO Q15M PRN; Protocol PRN Reason: per Hypoglycemia Standing Ord. Insulin Human Lispro (Insulin Lispro 100 Unit/Ml 3 Ml Vial) 0 unit SUBCUT QIDACHS [facility]; Protocol Last Admin: 09/13/21 11:47 Dose: 4 unit Documented by: IRA Latanoprost (Latanoprost 0.005 % Ophth Emilia 2.5 Ml Drops) 1 drop EYE-BOTH B EDTIME [facility] Last Admin: 09/12/21 20:05 Dose: 1 drop Documented by: NIKKI Levothyroxine Sodium (Levothyroxine Sodium 75 Mcg Tablet) 75 mcg PO DAILY@0630 [facility] Last Admin: 09/13/21 05:51 Dose: 75 mcg Documented by: NIKKI Loratadine (Loratadine 10 Mg Tablet) 10 mg PO DAILY [facility] Last Admin: 09/13/21 07:49 Dose: 10 mg Documented by: IRA Losartan Potassium (Losartan Potassium 50 Mg Tablet) 100 mg PO DAILY [facility]; Protocol Last Admin: 09/13/21 07:50 Dose: 100 mg Documented by: IRA Melatonin (Melatonin 3 Mg Tablet) 6 mg PO BEDTIME PRN PRN Reason: Insomnia Metoprolol Succinate (Metoprolol Succinate Er 50 Mg Tab.Er.24h) 50 mg PO DAILY [facility]; Protocol Last Admin: 09/13/21 07:53 Dose: 50 mg Documented by: IRA Senna (Sennosides 8.6 Mg Tablet) 17.2 mg PO BEDTIME PRN PRN Reason: Constipation Senna (Sennosides 8.6 Mg Tablet) 17.2 mg PO DAILY [facility] Last Admin: 09/13/21 07:48 Dose: 17.2 mg Documented by: IRA Sodium Chloride (0.9 % Sodium Chloride Flush 3 Ml Syringe) 3 ml IVFLUSH QSHIFT [facility] Last Admin: 09/13/21 07:48 Dose: 3 ml Documented by: IRA Labs CBC & Chem 7: 09/12/21 06:29 09/10/21 06:28 Labs: Laboratory Results - last 24 hr 09/12/21 09/12/21 09/13/21 16:08 19:38 07:25 POC Glucose 260 H 309 H 158 H 09/13/21 11:14 POC Glucose 211 H Assessment and Plan (1) COVID-19 virus infection: Status: Acute Assessment and Plan: 71F presented as stroke alert for reported slurred speech and left sided weakness, found to have ams, fevers, covid+ metabolic encephalopathy likely due to viral sepsis from covid neuro appreciated, unlikely CVA, no further work up mental status back to baseline diarrhea likely due to covid, check cdif, if negative imodium COVID with acute hypoxic respiratory failure now back on room air continue decadron 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 due to depakote monitor hypothyroid synthroid htn losartan, toprol ?history of CVA asa, statin dvt prophylaxis - lovenox full code Quality Stroke Does the patient have a stroke diagnosis?: No VTE Prior VTE?: No VTE Risk Level:: Medical - moderate - high VTE Device Contraindication: Treatment Not Indicated VTE Drug Contraindication: N/A - Med Ordered
[2021-09-13 14:49] LABS: CDiff Gene PCR NEGATIVE (Negative)
[2021-09-13 15:22] VITALS: BP 157/72; PULSE 61; RESP 18; TEMP 37.1; O2SAT 96
[2021-09-13 16:18] LABS: Glucose, Whole Blood 354 mg/dL (60-115)
--- NOTE | 2021-09-13 17:22 | MHC.SL.SWA ---
Speech Pathologist Impression: Risk of Aspiration Oralpharyngeal Dysphagia Risk of Aspiration Due to: Neurological Condition Dysphasia Diet Status: Upgrade Liquid Consistency and Strategies for Safe Swallow: Liquid Intake Recommendation: [place] Thick Liquid Intake Strategies: Small Sips No Straws Solid Food Consistency: Dietary Recommendations: Grnd/Mech Altered (NDD2) Additional Modifications to Solid Foods: Recommend UPGRADE solids to GROUND/MECH ALTERED (NDD2) and maintain NECTAR THICK liquids, pills CRUSHED in PUREE. Patient requires assistance with tray set up and as needed with feeding. Continue aspiration precautions. BOX FABRICATOR will continue to follow. Oral Medication Intake: Crushed with Puree Compensatory Strategies and Precautions to be Taken for Safe Swallow: Sitting Upright (90 deg) No Straw Small Bites and Sips Alternate Liquids/Solids Rate of Ingestion Change Oral Check Supervision While Eating and Drinking for Safe Swallow: Total Assistance Foods to Avoid: Swallowing Recommended Treatments: Compens. Strategy Educat. Recommendation for Speech: Inpatient Speech Therapy Comment: 1:1 assistance feeding; aspiration precautions Frequency/Duration: Date Range for Service Req: Timeline to reassess: Crm Developer Clinican/Clinical Fellow: No Supervisory Statement: I have reviewed and agree with the student/clinical fellow's documentation: N/A Speech Language Pathologist: Jo Hurt M.A., CCC-BOX FABRICATOR
[2021-09-13 19:35] VITALS: BP 122/68; PULSE 58; RESP 18; TEMP 37.1; O2SAT 95
[2021-09-13 20:30] LABS: Glucose, Whole Blood 292 mg/dL (60-115)
[2021-09-13] MEDS: Atorvastatin Calcium 40 MG TABLET PO (21:21)
[2021-09-13] MEDS: Latanoprost 0.005 % Ophth Sol 2.5 ML DROPS 1 DROP EYE-BOTH (21:22)
[2021-09-13 23:30] VITALS: PULSE 57; RESP 18; TEMP 36.6; O2SAT 96
[2021-09-14] VITALS (7 sets, daily range): BP systolic 117–163; BP diastolic 56–117; PULSE 49–55; RESP 16–19; TEMP 35.7–37.2; O2SAT 95–100
[2021-09-14] MEDS: Levothyroxine Sodium 75 MCG TABLET PO (05:38)
[2021-09-14 06:44] LABS: Hematocrit 39.8 % (37.0-47.0); Hemoglobin 13.1 g/dl (12.0-16.0); Mean Corpuscular HGB Conc 32.9 g/dl (31.0-35.0); Mean Corpuscular Hemoglobin 30.7 pg (27.0-33.0); Mean Corpuscular Volume 93.2 fL (80.0-98.0); PLT CLUMP 1; Red Blood Count 4.27 X10*6/uL (4.20-5.50); Red Cell Distribution Width 14.8 % (11.0-16.0)
[2021-09-14 06:45] LABS: Mean Platelet Volume 10.6 fL (9.4-12.3)
[2021-09-14 07:12] LABS: Platelet Count 71 X10*3/uL (160-400); White Blood Count 8.7 X10*3/uL (4.8-10.8)
[2021-09-14 07:16] LABS: Anion Gap 13 (12-20); Blood Urea Nitrogen 20 mg/dL (9-16); Calcium 9.1 mg/dL (8.4-10.2); Carbon Dioxide 31 mmol/L (22-29); Chloride 98 mmol/L (96-108); Estimated Glomerular Filt Rate > 60; Glucose Fasting 177 mg/dL (60-99); Magnesium 2.1 mg/dL (1.6-2.6); Potassium 4.7 mmol/L (3.3-5.1); Sodium 137 mmol/L (135-145)
[2021-09-14 08:11] LABS: Glucose, Whole Blood 155 mg/dL (60-115)
[2021-09-14] MEDS: dexAMETHasone sod phosphate 4 MG/ML VIAL 6 MG IVPUSH (08:18)
[2021-09-14] MEDS: Folic Acid 1 MG TABLET PO (08:18)
[2021-09-14] MEDS: 0.9 % Sodium Chloride Flush 3 ML SYRINGE IVFLUSH ×2 (08:19→16:56)
[2021-09-14] MEDS: Insulin Lispro 100 UNIT/ML 3 ML VIAL SUBCUT ×4 (08:19→20:43)
[2021-09-14] MEDS: Divalproex Sodium 500 MG TABLET.DR 1000 MG PO ×2 (08:19→20:43)
[2021-09-14] MEDS: Losartan Potassium 50 MG TABLET 100 MG PO (08:20)
[2021-09-14] MEDS: Escitalopram Oxalate 20 MG TABLET PO (08:20)
[2021-09-14] MEDS: Metoprolol Succinate ER 50 MG TAB.ER.24H PO (08:20)
[2021-09-14] MEDS: Sennosides 8.6 MG TABLET 17.2 MG PO (08:20)
[2021-09-14] MEDS: Aspirin 81 MG TAB.CHEW PO (08:20)
[2021-09-14] MEDS: Famotidine 20 MG TABLET PO (08:20)
[2021-09-14] MEDS: Loratadine 10 MG TABLET PO (08:20)
[2021-09-14 11:39] LABS: Glucose, Whole Blood 264 mg/dL (60-115)
--- NOTE | 2021-09-14 12:00 | P.DS_ITS ---
DS: Providers Provider Date of Service: 09/14/21 Date of admission: 09/08/21 21:25 Primary care physician: Latoya Cote MD Consults: 09/08/21 21:47 Consult to Infectious Diseases Routine Consulting Provider: Betsy Joyce Reason for consultation: COVID-19 positve. 09/09/21 08:14 Consult to Neurology Routine Consulting Provider: [facility] Reason for consultation: ams, left sided weakness DS: Diagnosis Discharge Diagnosis (1) Pneumonia due to COVID-19 virus: Status: Acute (2) Acute respiratory failure with hypoxia: Status: Acute (3) Encephalopathy: Status: Acute DS: Summary Hospital Course Hospital Course: Admission note HPI ?71-year-old female with a past medical history of hypertension, hyperlipidemia, diabetes, hypothyroidism, lives alone has home [employer] visits regularly; presented to the hospital today with a chief complaint of altered mental status.? Patient is alert and awake, follows simple commands, able to tell her name but otherwise not able to provide any further history.? Most of the history obtained from the ER staff.? No phone numbers /primary contact details.? Reportedly patient was found by the PCS on their visit today that she has altered; usually patient is not altered at her baseline and on service the questions fairly appropriately; EMS also reported the same who knows her with frequent visits to her house for helping her to get up.? ?also mentioned that patient reported to the [employer] that she has been having headaches over the past couple days; ?no mention of any fall, trauma or injury.? Per ER team patient on presentation noted to be very altered; CT head showed chronic findings consistent with encephalomalacia; no acute intracranial process.? Labs essentially benign; COVID-19 came back positive patient was also noted to be febrile.? Chest x-ray negative urinalysis negative.? Neurological exam is limited as patient was not able to follow commands initially ?admitted for further management Hospital course patient was admitted for metabolic encephalopathy due to covid pneumonia with viral sepsis. she was initially treated symptomatically with tylenol and encephalopathy resolved. she was seen by neuro for question of left sided weakness and slurred speech. this was felt to be secondary to encephalopathy and further stroke work up was not recommended. patient was intitially not hypoxic, she did later develop some hypoxia requiring 2L o2, she was then started on decadron. she is now back on room air and close to baseline, she will be discharged on 5 more days of prednisone. Developed diarrhea that resolved after being tested negative for C diff. Time Spent with Patient Time attestation: Total time spent providing and/or coordinating discharge services: Discharge coordination time: Greater than 30 minutes Quality: Stroke Does the patient have a stroke diagnosis?: No Physical Exam Verdana 4l Vital Signs: Verdana 4d Verdana 4d Vital Signs: Verdana 4d Verdana 4Bd Last Vital Signs Verdana 4d Roto Rooter Operator New 4d Roto Rooter Operator New 4d Temp 98.1 F 09/14/21 11:22 Roto Rooter Operator New 4d Pulse 55 09/14/21 11:22 Roto Rooter Operator New 4d Resp 18 09/14/21 11:22 BP 145/71 H 09/14/21 11:22 Pulse Ox 95 09/14/21 11:22 BMI result Body Mass Index 43.7 Const: Other: Constitutional : Alert, oriented to self not in distress Neck : Normal inspection, Supple Cardiovascular : RRR, S1 S2, no lower extremity edema Respiratory : Good bilateral air entry, no crackles, wheezes or rhonchi Gastrointestinal: soft, lax, Normal bowel sounds, Non tender Skin : Warm, Dry Neurological : Alert & oriented to self, No focal deficit DS: Data Data Completed and Pending Labs on day of discharge: Laboratory Results - last 24 hr 09/13/21 09/13/21 09/13/21 16:10 20:17 Unknown WBC RBC Hgb Hct MCV MCH MCHC RDW Plt Count MPV Absolute Nucleated RBC Nucleated RBC % (auto) Sodium Potassium Chloride Carbon Dioxide Anion Gap BUN Creatinine Estim Creat Clear Calc Estimated GFR POC Glucose 354 H* 292 H Fasting Glucose Calcium Magnesium C. difficile Tox B Gene NEGATIVE 09/14/21 09/14/21 09/14/21 06:29 06:29 07:52 WBC 8.7 RBC 4.27 Hgb 13.1 Hct 39.8 MCV 93.2 MCH 30.7 MCHC 32.9 RDW 14.8 Plt Count 71 L MPV 10.6 Absolute Nucleated RBC 0.000 Nucleated RBC % (auto) 0.0 Sodium 137 Potassium 4.7 Chloride 98 Carbon Dioxide 31 H Anion Gap 13 BUN 20 H Creatinine 0.74 Estim Creat Clear Calc 87.0 Estimated GFR > 60 POC Glucose 155 H Fasting Glucose 177 H Calcium 9.1 Magnesium 2.1 C. difficile Tox B Gene 09/14/21 11:35 WBC RBC Hgb Hct MCV MCH MCHC RDW Plt Count MPV Absolute Nucleated RBC Nucleated RBC % (auto) Sodium Potassium Chloride Carbon Dioxide Anion Gap BUN Creatinine Estim Creat Clear Calc Estimated GFR POC Glucose 264 H Fasting Glucose Calcium Magnesium C. difficile Tox B Gene Discharge Plan Discharge Patient Disposition: Home Health Service Discharge Diagnosis: covid Referrals: Physician,Unknown J [Physician] - 1 Week Discharge Medications: New prednisone 20 mg tablet 40 mg PO DAILY Qty: 10 0RF Continued latanoprost 0.005 % drops 1 drp ophthalmic (eye) DAILY 0RF atorvastatin 40 mg tablet 1 tab PO BEDTIME 0RF sennosides [senna] 8.6 mg tablet 2 tab PO DAILY 0RF ipratropium-albuterol 0.5 mg-3 mg(2.5 mg base)/3 mL solution for nebulization 3 ml inhalation QID PRN (Reason: Shortness Of Breath Or Wheezing) 0RF citalopram 40 mg tablet 1 tab PO DAILY 0RF metoprolol succinate 50 mg tablet extended release 24 hr 1 tab PO DAILY 0RF divalproex 500 mg tablet,delayed release (DR/EC) 1,000 mg PO BID 0RF levothyroxine 75 mcg tablet 1 tab PO DAILY 0RF famotidine 20 mg tablet 1 tab PO DAILY 0RF folic acid 1 mg tablet 1 tab PO DAILY 0RF albuterol sulfate [Ventolin HFA] 90 mcg/actuation HFA aerosol inhaler 2 puff inhalation Q6H PRN (Reason: Wheezing) 0RF losartan 100 mg tablet 1 tab PO DAILY 0RF loratadine [Allergy Relief (loratadine)] 10 mg tablet 1 tab PO DAILY 0RF Tresiba FlexTouch U-100 100 unit/mL (3 mL) insulin pen 54 unit subcut DAILY 0RF Trulicity 0.75 mg/0.5 mL pen injector 1.5 mg subcut MO 0RF polyethylene glycol 3350 [Miralax] 17 gram Powder In Packet 17 g PO DAILY 0RF aspirin 81 mg Tablet,Chewable 81 mg PO DAILY 0RF Discharge Orders: Discharge Order (Routine); Ordered 09/14/21 Ordered By: Charly Werner Diet: advance to usual diet Activity on Discharge: As tolerated Stand Alone Forms: Patient Portal Discharge page Care Plan Goals: recovery Health Concerns: covid Plan of Treatment: prednisone Assessment: see above
--- NOTE | 2021-09-14 12:30 | MHC.SL.SWA ---
Speech Pathologist Impression: Risk of Aspiration Oralpharyngeal Dysphagia Risk of Aspiration Due to: Neurological Condition Dysphasia Diet Status: Upgrade Liquid Consistency and Strategies for Safe Swallow: Liquid Intake Recommendation: [place] Thick Liquid Intake Strategies: Small Sips No Straws Solid Food Consistency: Dietary Recommendations: Grnd/Mech Altered (NDD2) Additional Modifications to Solid Foods: Recommend continue GROUND/MECH ALTERED (NDD2) and maintain NECTAR THICK liquids, pills CRUSHED in PUREE. Patient requires assistance with tray set up and as needed with feeding. Continue aspiration precautions. 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 Oral Medication Intake: Crushed with Puree Compensatory Strategies and Precautions to be Taken for Safe Swallow: Sitting Upright (90 deg) No Straw Small Bites and Sips Alternate Liquids/Solids Rate of Ingestion Change Oral Check Supervision While Eating and Drinking for Safe Swallow: Total Assistance Foods to Avoid: Swallowing Recommended Treatments: Compens. Strategy Educat. Recommendation for Speech: Inpatient Speech Therapy:Pt seen this morning for toleration of diet, re-assessment of swallow. Pt was alert and cooperative, presents as confused, disoriented. Pt took spoonfuls and cup sip of nectar thick liquid, w timely oral phase and swallow, no clinical signs of aspiration. Pt took bite of chicken salad sandwich, w/ prolonged oral phase, but good oral clearance and timely swallow. Pt could not recall if she had breakfast, could not report on toleration of upgraded diet. On re-assessment of swallow, recommend continue at current food consistency (Ground Mechanical/Altered) and [place] Thick liquids. Comment: 1:1 assistance feeding; aspiration precautions Frequency/Duration: Date Range for Service Req: Timeline to reassess: [place]inner Clinican/Clinical Fellow: No Supervisory Statement: I have reviewed and agree with the student/clinical fellow's documentation: N/A Speech Language Pathologist: Twyla Baptiste M.A., [facility]-[employer]OT[employer] BI[employer] MECH[employer]IC
[2021-09-14 16:23] LABS: Glucose, Whole Blood 289 mg/dL (60-115)
[2021-09-14 20:09] LABS: Glucose, Whole Blood 268 mg/dL (60-115)
[2021-09-14] MEDS: Atorvastatin Calcium 40 MG TABLET PO (20:43)
[2021-09-14] MEDS: Latanoprost 0.005 % Ophth Sol 2.5 ML DROPS 1 DROP EYE-BOTH (20:43)
[2021-09-15 03:16] VITALS: BP 109/64; PULSE 48; RESP 15; TEMP 36.4; O2SAT 100
[2021-09-15] MEDS: Levothyroxine Sodium 75 MCG TABLET PO (06:00)
[2021-09-15] MEDS: 0.9 % Sodium Chloride Flush 3 ML SYRINGE IVFLUSH ×2 (06:15→09:35)
[2021-09-15 07:12] VITALS: BP 137/85; PULSE 74; RESP 15; TEMP 35.9; O2SAT 93
[2021-09-15 07:38] LABS: Glucose, Whole Blood 139 mg/dL (60-115)
[2021-09-15] MEDS: Folic Acid 1 MG TABLET PO (09:34)
[2021-09-15] MEDS: Losartan Potassium 50 MG TABLET 100 MG PO (09:34)
[2021-09-15] MEDS: Sennosides 8.6 MG TABLET 17.2 MG PO (09:35)
[2021-09-15] MEDS: Divalproex Sodium 500 MG TABLET.DR 1000 MG PO (09:35)
[2021-09-15] MEDS: dexAMETHasone sod phosphate 4 MG/ML VIAL 6 MG IVPUSH (09:35)
[2021-09-15] MEDS: Loratadine 10 MG TABLET PO (09:35)
[2021-09-15] MEDS: Famotidine 20 MG TABLET PO (09:36)
[2021-09-15] MEDS: Escitalopram Oxalate 20 MG TABLET PO (09:36)
[2021-09-15] MEDS: Aspirin 81 MG TAB.CHEW PO (09:36)
[2021-09-15] MEDS: Metoprolol Succinate ER 50 MG TAB.ER.24H PO (09:36)
--- NOTE | 2021-09-15 11:12 | MHC.CM.PN ---
IMM 09/15/20 Female 71 Covid+ is discharged today to home. 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 HCP, has been notified. She will greet BLS at the pts residence. 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
== END 2021-09-15 11:05 | disposition home health service (06) | DRG 871 ==
LOC: HO.ED 20:46 → HO.EDOVER 21:40 → HO.IMC 09-09 07:56
PROVIDERS: Internal Medicine; Admitting Provider Hospitalist; Emergency Provider Emergency Medicine Emergency Medical Services; PCP Internal Medicine; Visit Provider Student in an Organized Health Care Education/Training Program
DX: A41.89 Other specified sepsis (principal); U07.1 COVID-19; J96.01 Acute respiratory failure with hypoxia; J12.82 Pneumonia due to coronavirus disease 2019; G93.41 Metabolic encephalopathy; G81.94 Hemiplegia, unspecified affecting left nondominant side; E86.0 Dehydration; I10 Essential (primary) hypertension; E03.9 Hypothyroidism, unspecified; E11.9 Type 2 diabetes mellitus without complications; D69.6 Thrombocytopenia, unspecified; G40.909 Epilepsy, unspecified, not intractable, without status epilepticus; Z74.01 Bed confinement status; E78.5 Hyperlipidemia, unspecified; Z86.73 Personal history of transient ischemic attack (TIA), and cerebral infarction without residual deficits; Z87.820 Personal history of traumatic brain injury; Z79.890 Hormone replacement therapy; Z79.899 Other long term (current) drug therapy
CPT/HCPCS: 36415; 70450; 80048; 80076; 81001; 82550; 82607; 82746; 82947; 83605; 83735; 84443; 84484; 85007; 85025; 85027; 85610; 85730; 86140; 87040; 87493; 87635; 92526; 92610; 93005; 96361; 96365; 99285; 99291; J0696; J1100; J1650

== ENCOUNTER 2021-12-10 12:37 | Emergency (ER) | payer OTHER, SELFPAY ==
--- NOTE | ~2021-12-10 | CT_ITS ---
EXAMINATION: CT HEAD WITHOUT CONTRAST CLINICAL INFORMATION: Altered mental status COMPARISON: CT head 09/08/2021 TECHNIQUE: Contiguous axial imaging was performed from the skull base to vertex without intravenous administration of contrast. Coronal and sagittal reformatted images are performed at CT scanner This CT examination was performed using dose optimization techniques as appropriate, variously including the following: *Automated exposure control *Adjustment of mA and/or kV according to patient size (this includes techniques or standardized protocols for targeted exams where dose is matched to indication/reason for exam; i.e. extremities or head) *Use of iterative reconstruction technique DLP: 960 mGy-cm FINDINGS: There is motion during the study limiting the exam. There is generalized global volume loss. There is marked prominence of the ventricles and the sulci . There is moderate hypodensity of the periventricular white matter due to chronic small vessel ischemic disease. There are vascular calcifications of the internal carotid arteries bilaterally. 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 Status post left-sided craniotomy the occipital bone. Stable ex vacuo dilatation of the trigone left lateral ventricle. There is no evidence of acute intracranial hemorrhage or acute territorial infarction. No abnormal mass effect or midline shift is seen. Burns to white matter differentiation is well preserved. No extra-axial fluid collections are identified. The osseous structures and soft tissues are normal. The mastoid air cells and visualized portions of the paranasal sinuses are well aerated. CT/CT head/brain wo con IMPRESSION: No acute intracranial pathology.
--- NOTE | ~2021-12-10 | XR_ITS ---
EXAMINATION: XR CHEST XR LUMBOSACRAL SPINE CLINICAL INFORMATION: Weakness. Altered mental status, suspected injury. COMPARISON: Chest radiograph done on 07/13/2021. CT of the abdomen and pelvis done on 09/06/2018. TECHNIQUE: 2 views of the chest and 2 views, 3 images of the lumbosacral spine were obtained. FINDINGS: Chest: Linear airspace disease is noted at left lung base, most consistent with hypoventilatory, atelectatic changes. Given the technique, the cardiac mediastinal silhouette is within normal limit. No evidence of any pleural effusion or pneumothorax. Compared to prior study, the linear airspace disease at left lung base appear new. Lumbosacral spine: The lateral radiographs were obtained in crosstable position, in spite of taking quite, images are technically limited. However, there is [id number], mid to anterior compression deformity of L1 vertebral body present, indeterminate etiology, appear new since prior CT of the abdomen and pelvis dated 09/06/2018. The remainder of the lumbar vertebrae appear normal in height. The posterior appendages are intact. The paraspinal soft tissues grossly appear unremarkable. XR/XR chest 2V IMPRESSION: 1. The chest radiograph shows linear airspace disease at left lung base, new since prior study dated 07/13/2021, most consistent with hypoventilatory, atelectatic changes. 2. The radiographs of the lumbosacral spine although is technically limited however, [id number], mid to anterior compression deformity of L1 vertebral body, of indeterminate etiology, new since prior CT of the abdomen and pelvis done on 09/06/2018.
--- NOTE | ~2021-12-10 | XR_ITS ---
EXAMINATION: XR CHEST XR LUMBOSACRAL SPINE CLINICAL INFORMATION: Weakness. Altered mental status, suspected injury. COMPARISON: Chest radiograph done on 07/13/2021. CT of the abdomen and pelvis done on 09/06/2018. TECHNIQUE: 2 views of the chest and 2 views, 3 images of the lumbosacral spine were obtained. FINDINGS: Chest: Linear airspace disease is noted at left lung base, most consistent with hypoventilatory, atelectatic changes. Given the technique, the cardiac mediastinal silhouette is within normal limit. No evidence of any pleural effusion or pneumothorax. Compared to prior study, the linear airspace disease at left lung base appear new. Lumbosacral spine: The lateral radiographs were obtained in crosstable position, in spite of taking quite, images are technically limited. However, there is [id number]-[id number], mid to anterior compression deformity of L1 vertebral body present, indeterminate etiology, appear new since prior CT of the abdomen and pelvis dated 09/06/2018. The remainder of the lumbar vertebrae appear normal in height. The posterior appendages are intact. The paraspinal soft tissues grossly appear unremarkable. XR/XR lumbar spine 2-3V IMPRESSION: 1. The chest radiograph shows linear airspace disease at left lung base, new since prior study dated 07/13/2021, most consistent with hypoventilatory, atelectatic changes. 2. The radiographs of the lumbosacral spine although is technically limited however, amjx-[id number]-[id number], mid to anterior compression deformity of L1 vertebral body, of indeterminate etiology, new since prior CT of the abdomen and pelvis done on 09/06/2018.
[2021-12-10 12:55] VITALS: BP 133/73; PULSE 80; RESP 18; TEMP 37.3; O2SAT 95; BMI 46.7
--- NOTE | 2021-12-10 14:35 | MHC.CM.ED ---
Addendum entered by Jena Schulz 12/10/21 15:32: Correction: Pt was unable to demonstrate how to use her CPAP Original Note: Received telephone call from Zonia at [facility]. She can be reached by telephone at [phone] until 5pm. [facility] was at patient's house today. Patient was very confused. She's bedbound at baseline. Was unable to demonstrate how to use the remote on her bed. Has CPAP. Was able to show how to put on her CPAP or take it off. 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 But not 24 hours a day. At this time, patient is not safe to go home. PCP is Dr Latoya Cote. Patient received Moderna vaccines on 10/13/20 and 11/10/20. Work up is still pending. Continue to monitor for d/c needs.
[2021-12-10 15:38] VITALS: BP 109/64; PULSE 73; RESP 12; TEMP 37.3; O2SAT 97
--- NOTE | 2021-12-10 15:49 | ECG_ITS ---
Test Reason : WEAKNESS Blood Pressure : / mmHG Vent. Rate : 076 BPM Atrial Rate : 076 BPM P-R Int : 184 ms QRS Dur : 072 ms QT Int : 404 ms P-R-T Axes : 003 -10 -71 degrees QTc Int : 454 ms Normal sinus rhythm Low voltage QRS ST & T wave abnormality, consider anterolateral ischemia Abnormal ECG When compared with ECG of 08-SEP-2021 18:21, No significant change was found Referred By: Lucy Carmichael Electronically Signed By:EDUARD DOWNEY MD
--- NOTE | 2021-12-10 15:52 | ED.GENADULT ---
HPI - General Adult General Chief complaint: General Medical <Lucy CarmichaelCAIT - Last Filed: 12/10/21 21:14> Stated complaint: ?snf placement <Lucy CarmichaelCAIT - Last Filed: 12/10/21 21:14> Time Seen by Provider: 12/10/21 15:35 <Lucy CarmichaelCAIT - Last Filed: 12/10/21 21:14> Source: patient <Lucy CarmichaelCAIT - Last Filed: 12/10/21 21:14> Mode of arrival: EMS <Lucy CarmichaelCAIT - Last Filed: 12/10/21 21:14> Limitations: altered mental status <Lucy CarmichaelCAIT - Last Filed: 12/10/21 21:14> History of Present Illness HPI narrative: Patient presents to the emergency department via EMS transport with reports that patient's healthcare proxy feels that she is unable to continue taking care of herself at home and believes she needs to be evaluated for placement to sniff. When speaking with the patient and asking why she is here she states that now and I want to go home. When asked if she has any complaints she does report midline lower back pain, it is unclear whether this is new, and whether she has had any recent falls. Unable to make contact with patient's sister/ healthcare proxy Queen Dung at this time. patient arrived with a letter from presumably healthcare proxy stating that the patient lives alone, there is been a significant decline in her mental status and there are safety concerns. Reportedly patient cannot allow the energy advisor into her building, she is not able to safely move in her bed or remove her CPAP mask. Additionally, there is mention of a hypoglycemic episode yesterday of 58, where patient was unable to self treat. <Lucy CarmichaelCAIT - Last Filed: 12/10/21 21:14> Related Data Home medications: Home Medications Medication Instructions Recorded Confirmed albuterol sulfate 90 mcg/actuation 2 puff INHALATION Q6H PRN 09/08/21 12/10/21 aerosol inhaler (Ventolin HFA) atorvastatin 40 mg tablet 1 tab PO BEDTIME 09/08/21 12/10/21 citalopram 40 mg tablet 1 tab PO DAILY 09/08/21 12/10/21 divalproex 500 mg tablet,delayed 1,000 mg PO BID 09/08/21 12/10/21 release dulaglutide 0.75 mg/0.5 mL 1.5 mg SUBCUT MO 09/08/21 12/10/21 subcutaneous pen injector (Trulicity) famotidine 20 mg tablet 1 tab PO DAILY 09/08/21 12/10/21 folic acid 1 mg tablet 1 tab PO DAILY 09/08/21 12/10/21 insulin degludec 100 unit/mL (3 54 unit SUBCUT DAILY 09/08/21 12/10/21 mL) subcutaneous pen (Tresiba FlexTouch U-100 insulin) ipratropium 0.5 mg-albuterol 3 mg 3 ml INHALATION QID PRN 09/08/21 12/10/21 (2.5 mg base)/3 mL nebulization soln levothyroxine 75 mcg tablet 1 tab PO DAILY 09/08/21 12/10/21 loratadine 10 mg tablet (Allergy 1 tab PO DAILY 09/08/21 12/10/21 Relief (loratadine)) losartan 100 mg tablet 1 tab PO DAILY 09/08/21 12/10/21 metoprolol succinate 50 mg 1 tab PO DAILY 09/08/21 12/10/21 tablet,extended release 24 hr sennosides 8.6 mg tablet (senna) 2 tab PO BEDTIME 09/08/21 12/10/21 aspirin 81 mg chewable tablet 81 mg PO DAILY 09/09/21 12/10/21 polyethylene glycol 3350 17 gram 17 g PO DAILY 09/09/21 12/10/21 oral powder packet (Miralax) melatonin 10 mg tablet 10 mg PO BEDTIME 12/10/21 12/10/21 <Lucy Carmichael CNP - Last Filed: 12/10/21 21:14> Allergies/adverse reactions: Allergies Allergy/AdvReac Type Severity Reaction Status Date / Time No Known Allergies Allergy Unverified 05/07/20 19:37 [No Known Allergies*] <Lucy Carmichael CNP - Last Filed: 12/10/21 21:14> Review of Systems Review of Systems: MSK: positive Back pain <Lucy Carmichael CNP - Last Filed: 12/10/21 21:14> Yes Unobtainable due to mental status <Lucy Carmichael CNP - Last Filed: 12/10/21 21:14> [facility] Past Medical History Attestation statement: The following information was validated with the patient. <Lucy Carmichael CNP - Last Filed: 12/10/21 21:14> Source: old records reviewed <Lucy Carmicheal CNP - Last Filed: 12/10/21 21:14> Medical History: Medical History Chronic diastolic CHF (congestive heart failure) Chronic idiopathic thrombocytopenia Diabetes Epilepsy HTN (hypertension) Hypothyroid TBI (traumatic brain injury) <Lucy Carmichael CNP - Last Filed: 12/10/21 21:14> Social History Social History: Social History Household Members: None Housing: House Do you presently have visiting nurse or other home services: Yes Patient Tobacco Use Status: Never used Tobacco Advance Directives: Yes Advance Directives on File: Yes Advance Directives Date on File: 09/09/21 service: No Current occupational status: disabled <Lucy Carmichael CNP - Last Filed: 12/10/21 21:14> Physical Exam ED Vital Signs: Vital Signs - 24 hr 12/12/21 11:55 12/12/21 16:29 12/12/21 20:07 Pulse Rate 58 67 53 Respiratory Rate 14 17 14 Blood Pressure 106/34 L 105/52 L 108/88 Pulse Oximetry 94 95 96 12/13/21 00:04 Pulse Rate Respiratory Rate 12 Blood Pressure Pulse Oximetry BMI result Body Mass Index 46.7 Vital signs have been reviewed as normal and appeared to be correct. Blood pressure normal.? Heart rate normal.? Respiration rate normal. Temperature normal.? Oxygen saturation normal. <Lucy Carmichael CNP - Last Filed: 12/10/21 21:14> Vital Signs - 24 hr 12/12/21 11:55 12/12/21 16:29 12/12/21 20:07 Pulse Rate 58 67 53 Respiratory Rate 14 17 14 Blood Pressure 106/34 L 105/52 L 108/88 Pulse Oximetry 94 95 96 04/25/22 00:04 Pulse Rate Respiratory Rate 12 Blood Pressure Pulse Oximetry BMI result Body Mass Index 46.7 <NATA Beatty - Last Filed: 12/12/21 09:30> Appearance: Alert.?Oriented to person, Disoriented to place and time. No acute distress.?Normal affect. Eyes: Pupils equal, round and reactive to light. EOMi. No Nystagmus? ENT: Pharynx normal.?? Neck: Normal inspection.? Neck supple.?? CVS: Heart sounds normal. Normal heart rate and rhythm.? Pulses normal.?? Respiratory: No respiratory distress.? Lung sounds clear to auscultation bilaterally, with bases diminished.?? Abdomen: Soft and non-tender. Normoactive bowel sounds. No pulsatile mass.?? Skin: Skin warm and dry.? Normal skin color.? Normal skin turgor.?? Extremities: No lower extremity edema.? No calf ttp? Neuro: Moves all extremities spontaneously. Sensation intact bilaterally. No focal neuro deficits. in-depth neuro examination is difficult due to patient's inability to follow specific commands <Lucy Carmichael CNP - Last Filed: 12/10/21 21:14> Course Course Course Narrative: patient is a 71-year-old female with a history of CHF, chronic idiopathic thrombocytopenia, diabetes, epilepsy, hypertension, hypothyroidism, traumatic brain injury, coming from home via EMS transport for evaluation of cognitive decline and safety concerns from patient's caregiver. At the time of exam unable to make contact with patient's healthcare proxy Queen Dung [phone], was reportedly her sister. Patient is a poor historian, unable to provide much history. She does state that she takes care of herself. The only elicited complaint is mid lower back pain but this is difficult to obtain much further history from that. Will obtain CBC to evaluate for leukocytosis/ anemia, CMP to evaluate for abnormal electrolytes /abnormal renal function/ abnormal hepatic function, EKG and troponin to Exclude ischemia/ACS. Chest x-ray to evaluate for consolidation/ infiltrate/ mass/ pulmonary congestion. Urinalysis to evaluate for infection. Head CT to rule out ischemia, ICH, SAH, at this time LWKT is unclear, appears to be a progressive decline based on written report received from engineering document control clerk. unable to obtain appropriate NIH Stroke Scale, as patient has difficulty following commands. <Lucy Cao CAIT Carmichael - Last Filed: 12/10/21 21:14> Reevaluation(s) Reevaluation #1: Case management involved in patient's care, ordered physical therapy consult. Case management spoke with Ebony from [facility], patient's Insurance, who have filed an elder at risk, as there is significant concern for her capacity. <Lucy Cao CAIT Carmichael - Last Filed: 12/10/21 21:14> Time: 17:00 <Lucy Cao CAIT Carmichael - Last Filed: 12/10/21 21:14> Reevaluation #2: CBC reveals a mild leukocytosis of 11.9, no shift, no acute concern for infection at this time. thrombocytopenia with platelet count 114, improved in comparison to prior. CMP reveals elevated BUN at 21, likely secondary to dehydration total protein albumin low. chest x-ray reveals linear airspace disease at the left lung base, most consistent with hypoventilatory atelectatic changes. Lumbar spine X are reveals a mild to moderate mid to anterior compression deformity of the L1 vertebral body, new in comparison to prior CT in August 2018. Head CT with no acute intracranial pathology, there is generalized volume loss chronic small-vessel ischemic disease. troponin is normal EKG with normal sinus rhythm nonspecific ST abnormality. urinalysis without signs of infection. Suspect that cognitive decline, decreased mobility and inability to manage ADLs are likely secondary to chronic medical conditions. Status order for psychiatric consult to further evaluate for opacity. Patient placed in physician observation as she will require additional time to be evaluated by Psychiatry, have Physical therapy consultation, and case management involvement for disposition. <Lucy Kileyrandell Carmichael CNP - Last Filed: 12/10/21 21:14> Time: 18:30 <Lucy Cao CAIT Carmichael - Last Filed: 12/10/21 21:14> Reevaluation #3: Physician observation continues, patient is awaiting psych eval and physical therapy evaluation to determine placement. Patient's sister is no longer able to care for her at home. Nurse tells me patient has a decubitus ulcer. I put in a wound consult. On my exam, patient is sleeping, respirations even and regular, no apparent distress, vitals have been stable. Will continue to monitor. <NATA Beatty - Last Filed: 12/12/21 09:30> Time: 08:23 <NATA Beatty - Last Filed: 12/12/21 09:30> Medical Decision Making Medical Records Medical records reviewed: Yes I reviewed the patient's medical records. <Lucy Carmichael CNP - Last Filed: 12/10/21 21:14> Lab Data Lab results reviewed: Yes I reviewed the patient's lab results. <Lucy Carmichael CNP - Last Filed: 12/10/21 21:14> Result diagrams: : 12/10/21 17:53 12/10/21 17:53 <Lucy Carmichael CNP - Last Filed: 12/10/21 21:14> Labs: Lab Results 12/10/21 12/10/21 12/10/21 Range/Units 17:53 17:53 17:53 WBC 11.9 H (4.8-10.8) X10*3/uL RBC 4.10 L (4.20-5.50) X10*6/uL Hgb 12.7 (12.0-16.0) g/dl Hct 39.2 (37.0-47.0) % MCV 95.6 (80.0-98.0) fL MCH 31.0 (27.0-33.0) pg MCHC 32.4 (31.0-35.0) g/dl RDW 15.5 (11.0-16.0) % Plt Count 114 L D (160-400) X10*3/uL MPV 9.9 (9.4-12.3) fL Immature Gran % (Auto) 3.1 H (0.0-0.4) % Neut % (Auto) 50.0 (45-73) % Lymph % (Auto) 36.1 (20-40) % [place] % (Auto) 10.2 (2-11) % Eos % (Auto) 0.3 (0-4) % Baso % (Auto) 0.3 (0-2) % Lymph # (Auto) 4.3 (1.2-4.9) X10*3/uL [place] # (Auto) 1.2 (0.1-1.2) X10*3/uL Eos # (Auto) 0.0 (0.0-0.4) X10*3/uL Baso # (Auto) 0.0 (0.0-0.2) X10*3/uL Abs Immat Gran (auto) 0.37 H (0.00-0.03) X10*3/uL Absolute Neuts (auto) 6.0 (2.0-8.3) x10*3/uL Absolute Nucleated RBC 0.000 (0.0-0.012) X10*3/uL Nucleated RBC % (auto) 0.0 (0.0-0.2) /100WBC Smear Tech's Comments VERIFIED Sodium 138 (135-145) mmol/L Potassium 3.8 (3.3-5.1) mmol/L Chloride 101 (96-108) mmol/L Carbon Dioxide 30 H (22-29) mmol/L Anion Gap 11 L (12-20) BUN 21 H (9-16) mg/dL Creatinine 0.69 (0.5-1.4) mg/dL Estim Creat Clear Calc 83.5 Estimated GFR > 60 POC Glucose (60-115) mg/dL Random Glucose 113 (60-115) mg/dL Calcium 9.3 (8.4-10.2) mg/dL Magnesium 1.7 (1.6-2.6) mg/dL Total Bilirubin 0.4 (0.0-1.0) mg/dL AST 17 D (5-31) U/L ALT 11 (0-31) U/L Alkaline Phosphatase 81 (39-117) U/L Troponin I High Sens 7.0 D (<3.5-17.0) ng/L Total Protein 6.0 L (6.5-8.0) g/dL Albumin 3.1 L (3.5-5.0) g/dL Urine Color Urine Appearance Urine pH (5.0-8.0) Ur Specific [place] (1.005-1.025) Urine Protein (NEG-TRACE) MG/DL Urine Glucose (UA) (NEG) MG/DL Urine Ketones (NEG) MG/DL Urine Blood (NEG) Urine Nitrite (NEG) Ur Leukocyte Esterase (NEG) Urine RBC (0) /HPF Urine WBC (0-4) /HPF Ur Squamous Epith Cells /LPF Amorphous Sediment /LPF Urine Bacteria /LPF Hyaline Casts /LPF Urine Mucus /LPF 12/10/21 12/11/21 12/12/21 Range/Units 20:01 08:57 10:34 WBC (4.8-10.8) X10*3/uL RBC (4.20-5.50) X10*6/uL Hgb (12.0-16.0) g/dl Hct (37.0-47.0) % MCV (80.0-98.0) fL MCH (27.0-33.0) pg MCHC (31.0-35.0) g/dl RDW (11.0-16.0) % Plt Count (160-400) X10*3/uL MPV (9.4-12.3) fL Immature Gran % (Auto) (0.0-0.4) % Neut % (Auto) (45-73) % Lymph % (Auto) (20-40) % [place] % (Auto) (2-11) % Eos % (Auto) (0-4) % Baso % (Auto) (0-2) % Lymph # (Auto) (1.2-4.9) X10*3/uL [place] # (Auto) (0.1-1.2) X10*3/uL Eos # (Auto) (0.0-0.4) X10*3/uL Baso # (Auto) (0.0-0.2) X10*3/uL Abs Immat Gran (auto) (0.00-0.03) X10*3/uL Absolute Neuts (auto) (2.0-8.3) x10*3/uL Absolute Nucleated RBC (0.0-0.012) X10*3/uL Nucleated RBC % (auto) (0.0-0.2) /100WBC Smear Tech's Comments Sodium (135-145) mmol/L Potassium (3.3-5.1) mmol/L Chloride (96-108) mmol/L Carbon Dioxide (22-29) mmol/L Anion Gap (12-20) BUN (9-16) mg/dL Creatinine (0.5-1.4) mg/dL Estim Creat Clear Calc Estimated GFR POC Glucose 146 H 102 (60-115) mg/dL Random Glucose (60-115) mg/dL Calcium (8.4-10.2) mg/dL Magnesium (1.6-2.6) mg/dL Total Bilirubin (0.0-1.0) mg/dL AST (5-31) U/L ALT (0-31) U/L Alkaline Phosphatase (39-117) U/L Troponin I High Sens (<3.5-17.0) ng/L Total Protein (6.5-8.0) g/dL Albumin (3.5-5.0) g/dL Urine Color YELLOW Urine Appearance CLEAR Urine pH 5.5 (5.0-8.0) Ur Specific [place] >= 1.030 H (1.005-1.025) Urine Protein TRACE (NEG-TRACE) MG/DL Urine Glucose (UA) NEG (NEG) MG/DL Urine Ketones NEG (NEG) MG/DL Urine Blood TRACE (NEG) Urine Nitrite NEG (NEG) Ur Leukocyte Esterase NEG (NEG) Urine RBC 1-4 (0) /HPF Urine WBC 1-4 (0-4) /HPF Ur Squamous Epith Cells 2+ /LPF Amorphous Sediment 1+ /LPF Urine Bacteria NONE /LPF Hyaline Casts 1-4 /LPF Urine Mucus TRACE /LPF <Lucy Carmichael, CAIT - Last Filed: 12/10/21 21:14> Lab Results 12/10/21 12/10/21 12/10/21 Range/Units 17:53 17:53 17:53 WBC 11.9 H (4.8-10.8) X10*3/uL RBC 4.10 L (4.20-5.50) X10*6/uL Hgb 12.7 (12.0-16.0) g/dl Hct 39.2 (37.0-47.0) % MCV 95.6 (80.0-98.0) fL MCH 31.0 (27.0-33.0) pg MCHC 32.4 (31.0-35.0) g/dl RDW 15.5 (11.0-16.0) % Plt Count 114 L D (160-400) X10*3/uL MPV 9.9 (9.4-12.3) fL Immature Gran % (Auto) 3.1 H (0.0-0.4) % Neut % (Auto) 50.0 (45-73) % Lymph % (Auto) 36.1 (20-40) % [place] % (Auto) 10.2 (2-11) % Eos % (Auto) 0.3 (0-4) % Baso % (Auto) 0.3 (0-2) % Lymph # (Auto) 4.3 (1.2-4.9) X10*3/uL [place] # (Auto) 1.2 (0.1-1.2) X10*3/uL Eos # (Auto) 0.0 (0.0-0.4) X10*3/uL Baso # (Auto) 0.0 (0.0-0.2) X10*3/uL Abs Immat Gran (auto) 0.37 H (0.00-0.03) X10*3/uL Absolute Neuts (auto) 6.0 (2.0-8.3) x10*3/uL Absolute Nucleated RBC 0.000 (0.0-0.012) X10*3/uL Nucleated RBC % (auto) 0.0 (0.0-0.2) /100WBC Smear Tech's Comments VERIFIED Sodium 138 (135-145) mmol/L Potassium 3.8 (3.3-5.1) mmol/L Chloride 101 (96-108) mmol/L Carbon Dioxide 30 H (22-29) mmol/L Anion Gap 11 L (12-20) BUN 21 H (9-16) mg/dL Creatinine 0.69 (0.5-1.4) mg/dL Estim Creat Clear Calc 83.5 Estimated GFR > 60 POC Glucose (60-115) mg/dL Random Glucose 113 (60-115) mg/dL Calcium 9.3 (8.4-10.2) mg/dL Magnesium 1.7 (1.6-2.6) mg/dL Total Bilirubin 0.4 (0.0-1.0) mg/dL AST 17 D (5-31) U/L ALT 11 (0-31) U/L Alkaline Phosphatase 81 (39-117) U/L Troponin I High Sens 7.0 D (<3.5-17.0) ng/L Total Protein 6.0 L (6.5-8.0) g/dL Albumin 3.1 L (3.5-5.0) g/dL Urine Color Urine Appearance Urine pH (5.0-8.0) Ur Specific [place] (1.005-1.025) Urine Protein (NEG-TRACE) MG/DL Urine Glucose (UA) (NEG) MG/DL Urine Ketones (NEG) MG/DL Urine Blood (NEG) Urine Nitrite (NEG) Ur Leukocyte Esterase (NEG) Urine RBC (0) /HPF Urine WBC (0-4) /HPF Ur Squamous Epith Cells /LPF Amorphous Sediment /LPF Urine Bacteria /LPF Hyaline Casts /LPF Urine Mucus /LPF 12/10/21 12/11/21 12/12/21 Range/Units 20:01 08:57 10:34 WBC (4.8-10.8) X10*3/uL RBC (4.20-5.50) X10*6/uL Hgb (12.0-16.0) g/dl Hct (37.0-47.0) % MCV (80.0-98.0) fL MCH (27.0-33.0) pg MCHC (31.0-35.0) g/dl RDW (11.0-16.0) % Plt Count (160-400) X10*3/uL MPV (9.4-12.3) fL Immature Gran % (Auto) (0.0-0.4) % Neut % (Auto) (45-73) % Lymph % (Auto) (20-40) % [place] % (Auto) (2-11) % Eos % (Auto) (0-4) % Baso % (Auto) (0-2) % Lymph # (Auto) (1.2-4.9) X10*3/uL [place] # (Auto) (0.1-1.2) X10*3/uL Eos # (Auto) (0.0-0.4) X10*3/uL Baso # (Auto) (0.0-0.2) X10*3/uL Abs Immat Gran (auto) (0.00-0.03) X10*3/uL Absolute Neuts (auto) (2.0-8.3) x10*3/uL Absolute Nucleated RBC (0.0-0.012) X10*3/uL Nucleated RBC % (auto) (0.0-0.2) /100WBC Smear Tech's Comments Sodium (135-145) mmol/L Potassium (3.3-5.1) mmol/L Chloride (96-108) mmol/L Carbon Dioxide (22-29) mmol/L Anion Gap (12-20) BUN (9-16) mg/dL Creatinine (0.5-1.4) mg/dL Estim Creat Clear Calc Estimated GFR POC Glucose 146 H 102 (60-115) mg/dL Random Glucose (60-115) mg/dL Calcium (8.4-10.2) mg/dL Magnesium (1.6-2.6) mg/dL Total Bilirubin (0.0-1.0) mg/dL AST (5-31) U/L ALT (0-31) U/L Alkaline Phosphatase (39-117) U/L Troponin I High Sens (<3.5-17.0) ng/L Total Protein (6.5-8.0) g/dL Albumin (3.5-5.0) g/dL Urine Color YELLOW Urine Appearance CLEAR Urine pH 5.5 (5.0-8.0) Ur Specific [place] >= 1.030 H (1.005-1.025) Urine Protein TRACE (NEG-TRACE) MG/DL Urine Glucose (UA) NEG (NEG) MG/DL Urine Ketones NEG (NEG) MG/DL Urine Blood TRACE (NEG) Urine Nitrite NEG (NEG) Ur Leukocyte Esterase NEG (NEG) Urine RBC 1-4 (0) /HPF Urine WBC 1-4 (0-4) /HPF Ur Squamous Epith Cells 2+ /LPF Amorphous Sediment 1+ /LPF Urine Bacteria NONE /LPF Hyaline Casts 1-4 /LPF Urine Mucus TRACE /LPF <NATA Beatty - Last Filed: 12/12/21 09:30> Imaging Data Chest x-ray: Radiologist's impression: XR/XR chest 2V IMPRESSION: ? 1. The chest radiograph shows linear airspace disease at left lung base, new since prior study dated 07/13/2021, most consistent with hypoventilatory, atelectatic changes. <Lucy Carmichael CNP - Last Filed: 12/10/21 21:14> lumbar XR: Radiologist's impression: XR/XR chest 2V IMPRESSION: The radiographs of the lumbosacral spine although is technically limited however, [id number], mid to anterior compression deformity of L1 vertebral body, of indeterminate etiology, new since prior CT of the abdomen and pelvis done on 09/06/2018. <Lucy Carmichael CNP - Last Filed: 12/10/21 21:14> CT scan - head: Radiologist's impression: CT/CT head/brain wo con IMPRESSION: No acute intracranial pathology. <Lucy Carmichael CNP - Last Filed: 12/10/21 21:14> ECG Data Attestation: I personally reviewed and interpreted this ECG as follows: <Lucy Carmichael CNP - Last Filed: 12/10/21 21:14> Interpretation: Rate: 76 Rhythm:? normal sinus rhythm [place]:? normal Normal P waves.? Normal CANDIDO.?? Normal QRS complex.?? ST T wave :?? nonspecific ST abnormality qTC: 454 prior: August 2021 The study has been interpreted contemporaneously by me. <Lucy Carmichael CNP - Last Filed: 12/10/21 21:14> Discharge Plan Discharge Clinical Impression: Cognitive decline, Generalized weakness, Compression fracture of L1 vertebra <Lucy Carmichael CNP - Last Filed: 12/10/21 21:14> Patient Disposition: Still a Patient <Lucy Carmichael CNP - Last Filed: 12/10/21 21:14> Prescriptions: No Action atorvastatin 40 mg tablet 1 tab PO BEDTIME 0RF sennosides [senna] 8.6 mg tablet 2 tab PO BEDTIME 0RF ipratropium-albuterol 0.5 mg-3 mg(2.5 mg base)/3 mL solution for nebulization 3 ml inhalation QID PRN (Reason: Shortness Of Breath Or Wheezing) 0RF citalopram 40 mg tablet 1 tab PO DAILY 0RF metoprolol succinate 50 mg tablet extended release 24 hr 1 tab PO DAILY 0RF divalproex 500 mg tablet,delayed release (DR/EC) 1,000 mg PO BID 0RF levothyroxine 75 mcg tablet 1 tab PO DAILY 0RF famotidine 20 mg tablet 1 tab PO DAILY 0RF folic acid 1 mg tablet 1 tab PO DAILY 0RF albuterol sulfate [Ventolin HFA] 90 mcg/actuation HFA aerosol inhaler 2 puff inhalation Q6H PRN (Reason: Wheezing) 0RF losartan 100 mg tablet 1 tab PO DAILY 0RF loratadine [Allergy Relief (loratadine)] 10 mg tablet 1 tab PO DAILY 0RF Tresiba FlexTouch U-100 100 unit/mL (3 mL) insulin pen 54 unit subcut DAILY 0RF Trulicity 0.75 mg/0.5 mL pen injector 1.5 mg subcut MO 0RF polyethylene glycol 3350 [Miralax] 17 gram Powder In Packet 17 g PO DAILY 0RF aspirin 81 mg Tablet,Chewable 81 mg PO DAILY 0RF melatonin 10 mg Tablet 10 mg PO BEDTIME 0RF <Lucy Carmichael CNP - Last Filed: 12/10/21 21:14>
--- NOTE | 2021-12-10 16:23 | MHC.CM.ED ---
Addendum entered by Jena Schulz 12/10/21 17:19: CM met with patient. Pt is confused. Knows is her sister (I believe she is her friend), but does not know why she is here at the hospital and cannot answer questions in a meaningful way. CM spoke with HCP/friend Queen Maylin ([phone]), who tells CM that she is very concerned that this patient is unable to safely remain at home. Pt cannot get OOB and has been unable to use her phone to allow [employer] into her house. feels that this patient would be better cared for in a jail. Explained that her medical work-up is not yet complete and that CM would speak with the provider about ordering a psych consult for capacity. understands that if the psychiatrist deems the patient not capable to make medical decisions, then the HCP would be invoked and would have to make medical decisions. understands. CM to follow for d/c needs. Original Note: CM received a telephone call from Zonia at [facility]. Per Zonia, pt has 56 hours/week [employer] during the day and 14 at night, but does not have a [employer] at night. Pt is alone overnight. Pt has daily VNA. Pt does not have any family and her HCP is a friend, Queen Maylin ([phone]). Pt is alert x1. Cannot manage the bed remote (has hospital bed), her CPAP and Zonia has concerns about pt capacity to make medical decisions. Pt in the past has been hesitant to move into LTC, but Zonia feels she needs to. The HCP is not invoked. Zonia has filed with Elder at risk services. CM will share above and request a psych consult for capacity and to invoke the HCP. Medical work-up pending. CM to follow for d/c needs.
[2021-12-10 18:16] LABS: Basophils Percent Auto 0.3 % (0-2); Eosinophils Percent Auto 0.3 % (0-4); Hemoglobin 12.7 g/dl (12.0-16.0); Imm Gran Abs Auto 0.37 X10*3/uL (0.00-0.03); PLT CLUMP 1; Red Cell Distribution Width 15.5 % (11.0-16.0); SCAN SMEAR FLAG 1
[2021-12-10 18:17] LABS: Alanine Aminotransferase 11 U/L (0-31); Albumin Level 3.1 g/dL (3.5-5.0); Alkaline Phosphatase 81 U/L (39-117); Anion Gap 11 (12-20); Aspartate Amino Transferase 17 U/L (5-31); Bilirubin Total 0.4 mg/dL (0.0-1.0); Blood Urea Nitrogen 21 mg/dL (9-16); Calcium 9.3 mg/dL (8.4-10.2); Carbon Dioxide 30 mmol/L (22-29); Chloride 101 mmol/L (96-108); Creatinine Clr Calc Pharmacy 83.5; Estimated Glomerular Filt Rate > 60; Glucose Random 113 mg/dL (60-115); Magnesium 1.7 mg/dL (1.6-2.6); Potassium 3.8 mmol/L (3.3-5.1); Sodium 138 mmol/L (135-145)
[2021-12-10 18:18] LABS: Hematocrit 39.2 % (37.0-47.0); Imm Gran Pct Auto 3.1 % (0.0-0.4); Lymphocytes Absolute Auto 4.3 X10*3/uL (1.2-4.9); Lymphocytes Percent Auto 36.1 % (20-40); MANUAL DIFF FLAG SCAN; Mean Corpuscular HGB Conc 32.4 g/dl (31.0-35.0); Mean Corpuscular Volume 95.6 fL (80.0-98.0); Mean Platelet Volume 9.9 fL (9.4-12.3); Monocytes Absolute Auto 1.2 X10*3/uL (0.1-1.2); Monocytes Percent Auto 10.2 % (2-11)
[2021-12-10 18:36] LABS: Platelet Count 114 X10*3/uL (160-400); White Blood Count 11.9 X10*3/uL (4.8-10.8)
[2021-12-10 18:37] LABS: SLIDE REVIEW VERIFIED
--- NOTE | 2021-12-10 19:25 | PHA.MEDREC ---
Pharmacy Consult ? Medication Reconciliation Pharmacy has completed the medication reconciliation. Spoke to patient's home care nurse Racquel ([phone]) who confirmed her medication list and doses. No remarkable issues. Emily Yancey, PharmD
[2021-12-10 19:31] VITALS: PULSE 77; RESP 14; TEMP 36.6; O2SAT 93
[2021-12-10 20:07] LABS: Appearance Urine CLEAR; Color Urine YELLOW; Glucose Urine UA NEG (NEG); Leukocyte Esterase Urine NEG (NEG); Nitrite Urine NEG (NEG); PH 5.5 (5.0-8.0); Specific Gravity - Urine >= 1.030 (1.005-1.025); UACC Culture Trigger NO; Urine Blood TRACE (NEG); Urine Ketones NEG (NEG); Urine Protein TRACE MG/DL (NEG-TRACE)
[2021-12-10 20:13] LABS: Amorphous Sediment Urine 1+ /LPF; Mucus Urine TRACE /LPF; Squamous Epithelial Cell Urine 2+ /LPF
[2021-12-10] MEDS: Divalproex Sodium 500 MG TABLET.DR 1000 MG PO (21:51)
[2021-12-10] MEDS: Melatonin 3 MG TABLET 9 MG PO (21:51)
[2021-12-10] MEDS: Atorvastatin Calcium 40 MG TABLET PO (21:51)
[2021-12-10 22:10] VITALS: BP 135/61; PULSE 71; RESP 16; O2SAT 94
[2021-12-10 23:40] VITALS: PULSE 71; O2SAT 94
[2021-12-11] VITALS (10 sets, daily range): BP systolic 95–129; BP diastolic 35–53; PULSE 60–109; RESP 16–20; TEMP 36.6; O2SAT 92–98
--- NOTE | 2021-12-11 01:25 | PC.NURSE ---
Patient alert x 1. Patient takes pills whole in pudding or applesauce. Patient is bed bound has a couple of small stage 2 wounds on buttock (picture in MD's note). extra protective cream applied and changed to a hospital bed for comfort. Patient wears cpap at night. Patient had to bowel movements after 3 pm holding senna. Patient is here for placement and case management. Will continue with plan of care.
--- NOTE | 2021-12-11 05:57 | PC.NURSE ---
Patient sleeping at this time. Respirations even/unlabored. Will continue to monitor.
--- NOTE | 2021-12-11 07:53 | MHC.CM.PN ---
EMR REVIEWED, PSYCH CONSULT/PT ARE STILL PENDING, BLANKET REFERRAL MADE LTC IS ANTICIPATED AND LTC HAVE BEEN DIFFICULT TO FIND, CM WILL CONT TO FOLLOW.
[2021-12-11 09:01] LABS: Glucose, Whole Blood 146 mg/dL (60-115)
[2021-12-11] MEDS: Levothyroxine Sodium 75 MCG TABLET PO (09:17)
[2021-12-11] MEDS: polyethylene glycoL 3350 17 GM POWD.PACK PO (09:17)
[2021-12-11] MEDS: Metoprolol Succinate ER 50 MG TAB.ER.24H PO (09:17)
[2021-12-11] MEDS: Escitalopram Oxalate 20 MG TABLET PO (09:17)
[2021-12-11] MEDS: Divalproex Sodium 500 MG TABLET.DR 1000 MG PO ×2 (09:17→21:08)
[2021-12-11] MEDS: Loratadine 10 MG TABLET PO (09:17)
[2021-12-11] MEDS: Famotidine 20 MG TABLET PO (09:17)
[2021-12-11] MEDS: Losartan Potassium 50 MG TABLET 100 MG PO (09:18)
[2021-12-11] MEDS: Folic Acid 1 MG TABLET PO (09:18)
[2021-12-11] MEDS: Aspirin 81 MG TAB.CHEW PO (09:18)
--- NOTE | 2021-12-11 09:31 | PC.NURSE ---
POC Glucose 146, provider notified. Per provider's instructions, instructed to hold Lantus 38 units at this time. Pt ate full breakfast around 8am, with assistance. Good swallow. Pt's mentation at baseline to self & answers appropriately to most questions. Adrianna RN (float RN) medicated the patient and assisted this RN. Vitals stable, will continue to monitor.
[2021-12-11] MEDS: Acetaminophen 325 MG TABLET 975 MG PO (11:38)
--- NOTE | 2021-12-11 11:44 | PC.NURSE ---
pt c/o 03/30 back pain, provider notified, medicated per provider order. pt took medication whole in applesauce.
--- NOTE | 2021-12-11 11:50 | PC.NURSE ---
patient turned/positioned for comfort
--- NOTE | 2021-12-11 12:29 | MHC.CM.PN ---
CM MET W/PT AT BEDSIDE TO DISCUSS DCP, PT REFUSING STR/LTC AND STATES, THE ONLY PLACE I'M GOING IS HOME , PT DOES NOT APPEAR CONCERNCED ABOUT NOT BEING ABLE TO CARE FOR SELF ON OVERNIGHTS WHEN SHE IS HOME, CM WILL AWAIT PSYCH CONSULT FOR FINAL DISPO.
[2021-12-11] MEDS: OLANZapine 10 MG TABLET PO (12:39)
--- NOTE | 2021-12-11 12:41 | PC.NURSE ---
medicated per provider order, pt reporting reduction in pain w medication and repositioning.
[2021-12-11] MEDS: oxyCODONE HCl Immed Release 5 MG TABLET PO (13:28)
--- NOTE | 2021-12-11 13:30 | PC.NURSE ---
pt continuing to c/o back pain, medicated per provider order.
--- NOTE | 2021-12-11 15:04 | PC.NURSE ---
medicated per provider order.
[2021-12-11] MEDS: Lidocaine HCl 1 % 10 ML VIAL INFILTRATI (15:17)
--- NOTE | 2021-12-11 15:18 | PC.NURSE ---
provider in rm w pt attempted to drain abscess on buttock, 10mL lidocaine inj into affected area by provider, no drainage noted, culture sample obtained, dressing applied.
[2021-12-11] MEDS: Sennosides 8.6 MG TABLET 17.2 MG PO (21:04)
[2021-12-11] MEDS: Atorvastatin Calcium 40 MG TABLET PO (21:04)
[2021-12-11] MEDS: Melatonin 3 MG TABLET 9 MG PO (21:10)
--- NOTE | 2021-12-11 22:38 | PC.NURSE ---
patient awake/alert to baseline, vss, pt was incontinent of urine despite pure wick being in place, pt was turned/positioned and changed, pt c/o continuous back pain, dressing to buttocks intact call parrish within reach, will continue to monitor.
[2021-12-12 03:29] VITALS: BP 80/34; PULSE 63; RESP 20; O2SAT 94
[2021-12-12 06:12] VITALS: BP 133/62; PULSE 68; RESP 16; TEMP 36.6; O2SAT 98
--- NOTE | 2021-12-12 08:15 | MHC.CM.PN ---
Addendum entered by Twyla Martinez RN 12/12/21 08:20: PT EVAL REMAINS PENDING, NO PT ON SUNDAYS, WILL WAIT FOR PSYCH EVAL AND PT EVAL. Original Note: CM REVIEWED ED CHART, IT DOES NOT APPEAR PSYCH EVAL HAS BEEN COMPLETED, [facility] FOLLOWING, [facility] WILL FOLLOW HOWEVER UNLIKELY THEY WILL HAVE A BED ON MONDAY D/T CURRENT STATE SURVEY, CM WILL CONT TO FOLLOW, DISPO PENDING PSYCH EVAL.
[2021-12-12] MEDS: polyethylene glycoL 3350 17 GM POWD.PACK PO (09:42)
[2021-12-12] MEDS: Losartan Potassium 50 MG TABLET 100 MG PO (09:42)
[2021-12-12] MEDS: Famotidine 20 MG TABLET PO (09:42)
[2021-12-12] MEDS: Divalproex Sodium 500 MG TABLET.DR 1000 MG PO ×2 (09:42→21:02)
[2021-12-12] MEDS: Levothyroxine Sodium 75 MCG TABLET PO (09:42)
[2021-12-12] MEDS: Folic Acid 1 MG TABLET PO (09:42)
[2021-12-12] MEDS: Loratadine 10 MG TABLET PO (09:42)
[2021-12-12] MEDS: Escitalopram Oxalate 20 MG TABLET PO (09:42)
[2021-12-12] MEDS: Aspirin 81 MG TAB.CHEW PO (09:42)
[2021-12-12] MEDS: Metoprolol Succinate ER 50 MG TAB.ER.24H PO (09:43)
--- NOTE | 2021-12-12 10:08 | PC.NURSE ---
Pt Alert oriented to person only. T&Px3, Lungs diminished throughout, VS as charted, pericare and bed bath provided. Pt medicated as per MAR orders with whole pills in applesauce. Wound from recent I&D to R buttocked cleaned and redressed with allevyn. Call parrish within reach, will contineu to monito.
[2021-12-12 10:39] LABS: Glucose, Whole Blood 102 mg/dL (60-115)
[2021-12-12 11:55] VITALS: BP 106/34; PULSE 58; RESP 14; O2SAT 94
--- NOTE | 2021-12-12 14:45 | PC.NURSE ---
patient alert to person, turned/positioned, incontinent of urine, pure wick also intact, call parrish within reach, will continue to monitor
[2021-12-12 16:29] VITALS: BP 105/52; PULSE 67; RESP 17; O2SAT 95
[2021-12-12 20:07] VITALS: BP 108/88; PULSE 53; RESP 14; O2SAT 96
[2021-12-12] MEDS: Sennosides 8.6 MG TABLET 17.2 MG PO (21:00)
[2021-12-12] MEDS: Melatonin 3 MG TABLET 9 MG PO (21:01)
[2021-12-12] MEDS: Atorvastatin Calcium 40 MG TABLET PO (21:01)
--- NOTE | 2021-12-12 21:04 | PC.NURSE ---
patient alert to self, vitals have been stable, pure wick intact- pt is incontinent as well as having the pure wick, pt turned/positioned to comfort, pt took meds whole with pudding, call parrish within reach, will continue to monitor.
[2021-12-13] VITALS (8 sets, daily range): BP systolic 123–154; BP diastolic 52–81; PULSE 61–96; RESP 12–20; TEMP 36.5–37.1; O2SAT 94–99
[2021-12-13] MEDS: Levothyroxine Sodium 75 MCG TABLET PO (06:00)
[2021-12-13 08:18] LABS: Glucose, Whole Blood 105 mg/dL (60-115)
--- NOTE | 2021-12-13 08:56 | MHC.CM.ED ---
Addendum entered by Hilda Hamm 12/13/21 11:26: Attempted to reach patient's sister, Jacqueline via telephone at [phone]. Male answered phone and stated Jacqueline wasn't available. Original Note: Patiet remains in ER. Physical therapy eval completed. outside sales consultant care is recommended. Psych consult was ordered on 12/10. Not done yet. T/W spoke with M5. Dr Razo was given the referral and is aware. Will not be able to move forward until psych eval is completed to determine if patient has capacity to make her own decisions. Continue to monitor for d/c needs.
[2021-12-13] MEDS: Folic Acid 1 MG TABLET PO (09:27)
[2021-12-13] MEDS: Insulin Glargine,Hum.rec.anlog 100 UNIT/ML 10 ML VIAL 38 UNIT SUBCUT (09:27)
[2021-12-13] MEDS: Metoprolol Succinate ER 50 MG TAB.ER.24H PO (09:28)
[2021-12-13] MEDS: Escitalopram Oxalate 20 MG TABLET PO (09:28)
[2021-12-13] MEDS: Famotidine 20 MG TABLET PO (09:28)
[2021-12-13] MEDS: Aspirin 81 MG TAB.CHEW PO (09:28)
[2021-12-13] MEDS: Losartan Potassium 50 MG TABLET 100 MG PO (09:28)
[2021-12-13] MEDS: Loratadine 10 MG TABLET PO (09:28)
[2021-12-13] MEDS: polyethylene glycoL 3350 17 GM POWD.PACK PO (09:28)
[2021-12-13] MEDS: Divalproex Sodium 500 MG TABLET.DR 1000 MG PO ×2 (09:28→21:32)
--- NOTE | 2021-12-13 10:29 | PC.NURSE ---
pt took morning meds w/o issue, given breakfast, ate about 40% w assistance. pt c/o back pain, repositioned pillows under pt on opposite side, linens appears dry, purewick in place draining dark yellow urine. pt tolerating reposition w 2 assist. no new open areas. no issues w swallow noted w food or w medications. pt asking about going home today, will f/u w case mgmt.
--- NOTE | 2021-12-13 11:29 | MHC.CM.ED ---
Addendum entered by Hilda Hamm 12/13/21 12:42: Received telephone call from patient's HCP/friend, . Explained psych consult for capacity is pending. Porter verbalized understanding. Original Note: Patiet remains in ER. Physical therapy eval completed. middle or intermediate school principal care is recommended. Psych consult was ordered on 12/10. Not done yet. T/W spoke with M5. Dr Razo was given the referral and is aware. Will not be able to move forward until psych eval is completed to determine if patient has capacity to make her own decisions. Continue to monitor for d/c needs.
[2021-12-13 13:35] LABS: Glucose, Whole Blood 104 mg/dL (60-115)
--- NOTE | 2021-12-13 14:31 | PM.PSYCN ---
History of Present Illness Date of Service: 12/13/21 Chief Complaint: ?snf placement Reason for Consult: capacity HPI Narrative: per 12/10 ED note: Course Narrative: ? ? ? patient is a 71-year-old female with a history of CHF, chronic idiopathic thrombocytopenia, diabetes, epilepsy, hypertension, hypothyroidism, traumatic brain injury, coming? from home via EMS transport? for evaluation of cognitive decline and safety concerns from patient's caregiver.? At the time of exam unable to make contact with patient's healthcare proxy Queen Dung [phone],? was reportedly her sister.? Patient is a poor historian, unable to provide much history.? She does state that she takes care of herself.? The only elicited complaint is mid lower back pain but this is difficult to obtain much further history from that. Will obtain CBC to evaluate for leukocytosis/ anemia, CMP to evaluate for abnormal electrolytes /abnormal renal function/ abnormal hepatic function,? EKG and troponin to ? Exclude ischemia/ACS.? Chest x-ray to evaluate for consolidation/ infiltrate/ mass/ pulmonary congestion.? Urinalysis to evaluate for infection. Head CT to rule out ischemia, ICH, SAH, at this time LWKT is unclear, appears to be a progressive decline based on written report received from middle school resource teacher.? unable to obtain appropriate NIH Stroke Scale, as patient has difficulty following commands.?<Lucy Carmichael CNP - Last Filed: 12/10/21 21:14> Reevaluation(s) Reevaluation #1: ? ? ? Case management involved in patient's care, ordered physical therapy consult. Case management spoke with Ebony from [facility], patient's Insurance, who have filed an elder at risk, as there is significant concern for her capacity.?<Lucy Carmichael CNP - Last Filed: 12/10/21 21:14> Time: ? ? ? 17:00?<Lucy Carmichael CNP - Last Filed: 12/10/21 21:14> Reevaluation #2: ? ? ? CBC reveals a mild leukocytosis of 11.9, no shift, no acute concern for infection at this time.? thrombocytopenia with platelet count 114, improved in comparison to prior. ? CMP reveals elevated BUN at 21, likely secondary to dehydration total protein albumin low.? chest x-ray reveals linear airspace disease at the left lung base, most consistent with hypoventilatory atelectatic changes. ? Lumbar spine X are reveals a mild to moderate mid to anterior compression deformity of the L1 vertebral body, new in comparison to prior CT in August 2018. ? Head CT with no acute intracranial pathology, there is generalized volume loss chronic small-vessel ischemic disease.? troponin is normal EKG with normal sinus rhythm nonspecific ST abnormality.? urinalysis without signs of infection.? Suspect that cognitive decline, decreased mobility and inability to manage ADLs are likely secondary to chronic medical conditions. ? Status order for psychiatric consult to further evaluate for opacity. Patient placed in physician observation as she will require additional time to be evaluated by Psychiatry, have Physical therapy consultation, and case management involvement for disposition.?<Lucy Carmichael CNP - Last Filed: 12/10/21 21:14> Time: ? ? ? 18:30?<Lucy Carmichael CNP - Last Filed: 12/10/21 21:14> Reevaluation #3: ? ? ? Physician observation continues, patient is awaiting psych eval and physical therapy evaluation to determine placement.? Patient's sister is no longer able to care for her at home.? Nurse tells me patient has a decubitus ulcer.? I put in a wound consult.? On my exam, patient is sleeping, respirations even and regular, no apparent distress, vitals have been stable.? Will continue to monitor. psych eval 12/13: pt found resting in her bed, awake and alert. she verified her identity verbally. introduced himself and his role. pt stated she wants to go home. informed her of concerns for her ability to care for herself living alone and some of the risks she is taking. she was unable to discuss those risks with MD, merely repeatedly saying she wants to go home. at one point she did state, i know i can't live alone. she then argued that she has caretakers coming 6 days per week who stay there for 2 hours and that that is sufficient. asked what would happen if she fell down after they left and she essentially indicated she has a medical alert alarm that she would press and an ambulance would come to get her. MD asked her to describe an example of that's having happened in the past and she became flustered and was not able to produce and example. MD asked her to consider the hypothetical scenario where staff were unable to visit her at home, whether she would then agree that going to a half-way was the right thing for her, and she became angry and repeatedly told MD that he was just trying to convince her to go to a nursing facility. MD explained he was attempting to understand her thinking on the subject, but she was perseverative and unable to be engaged. MD began to inquire as to the relationship and history between her and her HCP Queen Dung (friend for 20 years), and pt continued to escalate and ultimately informed MD that she did not wish to speak with him any longer. MD then ended the interview at her request. Past Psychiatric History: s/p TBI Medical Evaluation Reviewed: Yes [facility] Medical History Chronic diastolic CHF (congestive heart failure) Chronic idiopathic thrombocytopenia Diabetes Epilepsy HTN (hypertension) Hypothyroid TBI (traumatic brain injury) Diagnostics Vital Signs (24Hr): Vital Signs - 24 hr 12/12/21 16:29 12/12/21 20:07 12/13/21 00:04 Temperature Pulse Rate 67 53 Respiratory Rate 17 14 12 Blood Pressure 105/52 L 108/88 Pulse Oximetry 95 96 12/13/21 07:09 12/13/21 07:41 12/13/21 14:19 Temperature 97.7 F Pulse Rate 64 64 73 Respiratory Rate 17 Blood Pressure 123/62 123/62 Pulse Oximetry 94 94 99 BMI result Body Mass Index 46.7 Labs Results: 12/10/21 17:53 12/10/21 17:53 Labs: Laboratory Results - last 48 hr 12/12/21 12/13/21 12/13/21 10:34 08:13 13:31 POC Glucose 102 105 104 Imaging Radiology Impressions: ITS Impressions Chest X-Ray 12/10/21 16:27 IMPRESSION: 1. The chest radiograph shows linear airspace disease at left lung base, new since prior study dated 07/13/2021, most consistent with hypoventilatory, atelectatic changes. 2. The radiographs of the lumbosacral spine although is technically limited however, [id number], mid to anterior compression deformity of L1 vertebral body, of indeterminate etiology, new since prior CT of the abdomen and pelvis done on 09/06/2018. Lumbar Spine X-Ray 12/10/21 16:27 IMPRESSION: 1. The chest radiograph shows linear airspace disease at left lung base, new since prior study dated 07/13/2021, most consistent with hypoventilatory, atelectatic changes. 2. The radiographs of the lumbosacral spine although is technically limited however, [id number]-[id number], mid to anterior compression deformity of L1 vertebral body, of indeterminate etiology, new since prior CT of the abdomen and pelvis done on 09/06/2018. Head CT 12/10/21 17:19 IMPRESSION: No acute intracranial pathology. Mental Status Exam Mental Status Exam Narrative: appropriately dressed and groomed. variably cooperative. variable PMA - none to agitated waving of the hands. speech variable, nml to incr in rate, amount, loudness. thoughts perseverative. affect mod labile, hyperintense. mood not assessed. no SI/HI/AVH expressed. Medications Medications Current Medications Albuterol Sulfate (Albuterol Sulfate 90 Mcg 8 Gm Inhaler) 2 puff INHALE Q6H PRN PRN Reason: Wheezing Albuterol/Ipratropium (Albuterol/Iprat 2.5/0.5mg 3 Ml Ampul.Neb) 3 ml INHALE QID PRN PRN Reason: Shortness Of Breath Or Wheezing Aspirin (Aspirin 81 Mg Tab.Chew) 81 mg PO DAILY [facility] Last Admin: 12/13/21 09:28 Dose: 81 mg Documented by: Atorvastatin Calcium (Atorvastatin Calcium 40 Mg Tablet) 40 mg PO BEDTIME [facility] Last Admin: 12/12/21 21:01 Dose: 40 mg Documented by: Divalproex Sodium (Divalproex Sodium 500 Mg Tablet.) 1,000 mg PO BID [facility] Last Admin: 12/13/21 09:28 Dose: 1,000 mg Documented by: Doxycycline Hyclate (Doxycycline Hyclate 100 Mg Tablet) 100 mg PO BID [facility] Last Admin: 12/13/21 09:27 Dose: 100 mg Documented by: Escitalopram Oxalate (Escitalopram Oxalate 20 Mg Tablet) 20 mg PO DAILY [facility] Last Admin: 12/13/21 09:28 Dose: 20 mg Documented by: Famotidine (Famotidine 20 Mg Tablet) 20 mg PO DAILY [facility] Last Admin: 12/13/21 09:28 Dose: 20 mg Documented by: Folic Acid (Folic Acid 1 Mg Tablet) 1 mg PO DAILY [facility] Last Admin: 12/13/21 09:27 Dose: 1 mg Documented by: Insulin Glargine (Insulin Glargine,Hum.Rec.Anlog 100 Unit/Ml 10 Ml Vial) 38 unit SUBCUT DAILY [facility] Last Admin: 12/13/21 09:27 Dose: 38 unit Documented by: Levothyroxine Sodium (Levothyroxine Sodium 75 Mcg Tablet) 75 mcg PO DAILY@0600 [facility] Last Admin: 12/13/21 06:00 Dose: 75 mcg Documented by: Loratadine (Loratadine 10 Mg Tablet) 10 mg PO DAILY [facility] Last Admin: 12/13/21 09:28 Dose: 10 mg Documented by: Losartan Potassium (Losartan Potassium 50 Mg Tablet) 100 mg PO DAILY [facility]; Protocol Last Admin: 12/13/21 09:28 Dose: 100 mg Documented by: Melatonin (Melatonin 3 Mg Tablet) 9 mg PO BEDTIME [facility] Last Admin: 12/12/21 21:01 Dose: 9 mg Documented by: Metoprolol Succinate (Metoprolol Succinate Er 50 Mg Tab.Er.24h) 50 mg PO DAILY [facility]; Protocol Last Admin: 12/13/21 09:28 Dose: 50 mg Documented by: Pharmacy Consult (Consult Rx Perform Med Rec) 1 each MISCELLANE ONCE PRN PRN Reason: Consult order Polyethylene Glycol (Polyethylene Glycol 3350 17 Gm Powd.Pack) 17 gm PO DAILY [facility] Last Admin: 12/13/21 09:28 Dose: 17 gm Documented by: Senna (Sennosides 8.6 Mg Tablet) 17.2 mg PO BEDTIME [facility] Last Admin: 12/12/21 21:00 Dose: 17.2 mg Documented by: Allergies Allergies Allergy/AdvReac Type Severity Reaction Status Date / Time No Known Allergies Allergy Unverified 05/07/20 19:37 [No Known Allergies*] Assessment & Plan Assessment & Plan (1) Epilepsy: Status: Acute Code(s): G40.909 - Epilepsy, unspecified, not intractable, without status epilepticus (2) TBI (traumatic brain injury): Status: Acute Code(s): S06.9X9A - Unspecified intracranial injury with loss of consciousness of unspecified duration, initial encounter Plan pt was difficult to engage in a thorough and nuanced discussion of her predicament. her position on the question at hand was quite consistent and clear - to return home and to not go to a SNF. however, she was rigid in her thinking - perseverative at points, and she demonstrated no ability to take in and rationally manipulate new information. she was unable to effectively modulate her affect so as to be able to engage in a rational discussion. in addition, although no formal intelligence testing was undertaken, her cognitive process and vocabulary indicated a likely low intellectual function. in toto, although the patient's lability and concrete, rigid thinking prevented this adjusto writer operator from conducting a more complete capacity evaluation, the available evidence supports that this patient presently lacks decisional capacity regarding her discharge plan. the reason for his is her clear inability to take in and rationally manipulate new information. HCP should be invoked for dispo planning purposes. I spent ___45___ minutes with the patient and/or on the patient floor today, greater than?50% of which was spent counseling/coordinating care.
--- NOTE | 2021-12-13 15:15 | MHC.CM.ED ---
Psych consult completed. HCP invoked. T/w spoke with patient's friend/HCP, via telephone. T/W explained [facility], [facility] and [facility] are still following. [facility]. will provide a 2nd choice if there is no bed available at [facility]. Continue to monitor for d/c needs.
--- NOTE | 2021-12-13 17:51 | MHC.CM.ED ---
CM spoke with invoked HCP, Porter Little regarding bed offers. Unfortunately, only [facility] is offering a bed, pt would need her own TV/phone and [facility] is considering, but hasn't offered a bed. [facility], HCP first choice does not have a bed. Porter will review and CM will reach out to her in the am for a decision on placement. Perhaps [facility] will offer a bed. CM to follow for d/c needs.
[2021-12-13] MEDS: Melatonin 3 MG TABLET 9 MG PO (21:32)
[2021-12-13] MEDS: Sennosides 8.6 MG TABLET 17.2 MG PO (21:32)
[2021-12-13] MEDS: Atorvastatin Calcium 40 MG TABLET PO (21:33)
[2021-12-13] MEDS: LORazepam 1 MG TABLET PO (23:11)
[2021-12-14 00:10] VITALS: PULSE 68; RESP 20; O2SAT 96
[2021-12-14 01:48] VITALS: BP 143/60; PULSE 72; RESP 18; O2SAT 96
[2021-12-14 06:00] VITALS: BP 120/63; PULSE 80; RESP 14; O2SAT 94
[2021-12-14 06:59] LABS: Glucose, Whole Blood 91 mg/dL (60-115)
[2021-12-14] MEDS: Levothyroxine Sodium 75 MCG TABLET PO (07:45)
[2021-12-14] MEDS: Insulin Glargine,Hum.rec.anlog 100 UNIT/ML 10 ML VIAL 38 UNIT SUBCUT (08:46)
[2021-12-14 08:47] VITALS: BP 110/62; PULSE 66; RESP 16; O2SAT 90
[2021-12-14] MEDS: Divalproex Sodium 500 MG TABLET.DR 1000 MG PO ×2 (08:49→21:16)
[2021-12-14] MEDS: Aspirin 81 MG TAB.CHEW PO (08:49)
[2021-12-14] MEDS: Escitalopram Oxalate 20 MG TABLET PO (08:49)
[2021-12-14] MEDS: Famotidine 20 MG TABLET PO (08:49)
[2021-12-14] MEDS: Metoprolol Succinate ER 50 MG TAB.ER.24H PO (08:49)
[2021-12-14] MEDS: Loratadine 10 MG TABLET PO (08:49)
[2021-12-14] MEDS: Losartan Potassium 50 MG TABLET 100 MG PO (08:50)
[2021-12-14] MEDS: Folic Acid 1 MG TABLET PO (08:50)
--- NOTE | 2021-12-14 09:10 | PC.NURSE ---
pt with minimal incontinence following leak to periwick. pt bedding changed. dressing to coccyx changed and barrier cream applied.
--- NOTE | 2021-12-14 09:36 | MHC.CM.ED ---
Patient remains in ER. [facility] and [facility] are only facilities that are able to offer a bed. T/W attempted to reach patient's HCP, Porter via telephone at [phone]. She is currently on a telephone conference and will contact around noon. Continue to monitor for d/c needs.
--- NOTE | 2021-12-14 12:39 | MHC.CM.ED ---
Spoke with about discharge planning. [facility] is 1st choice. Johny made aware and asked to obtain insurance auth. Continue to monitor for d/c needs.
[2021-12-14 15:36] VITALS: BP 135/63; PULSE 60; RESP 18; TEMP 36.7; O2SAT 98
--- NOTE | 2021-12-14 17:13 | MHC.CM.ED ---
CM still waiting on insurance authorization from [facility]. Pt will remain in ED overnight. CM will reach out to facility in the morning. CM to follow for d/c needs.
--- NOTE | 2021-12-14 17:16 | MHC.CM.ED ---
CM called and spoke with invoked HCP Porter Maylin to update her that we are still waiting for insurance auth. Pt will stay in ED overnight. Expect authorization tomorrow and transfer to facility. Porter tells [facility] she has a TV for patient. CM to follow for d/c needs.
[2021-12-14 20:37] VITALS: BP 138/79; PULSE 66; RESP 20; TEMP 36.7; O2SAT 97
[2021-12-14] MEDS: Atorvastatin Calcium 40 MG TABLET PO (21:13)
[2021-12-14] MEDS: Sennosides 8.6 MG TABLET 17.2 MG PO (21:14)
[2021-12-14] MEDS: Melatonin 3 MG TABLET 9 MG PO (21:15)
[2021-12-15] MEDS: Levothyroxine Sodium 75 MCG TABLET PO (05:45)
[2021-12-15 06:31] VITALS: BP 115/59; PULSE 62; RESP 14; TEMP 36.7; O2SAT 98
--- NOTE | 2021-12-15 06:31 | PC.RT ---
Offered patient CPAP this shift. Pt declined. Pt never had a period of sleep to feasibly appeal to patient to wear while asleep.
[2021-12-15 07:38] VITALS: BP 132/54; PULSE 64; RESP 16; O2SAT 98
[2021-12-15] MEDS: polyethylene glycoL 3350 17 GM POWD.PACK PO (07:39)
[2021-12-15] MEDS: Losartan Potassium 50 MG TABLET 100 MG PO (07:39)
[2021-12-15] MEDS: Divalproex Sodium 500 MG TABLET.DR 1000 MG PO (07:39)
[2021-12-15] MEDS: Famotidine 20 MG TABLET PO (07:39)
[2021-12-15] MEDS: Folic Acid 1 MG TABLET PO (07:40)
[2021-12-15] MEDS: Escitalopram Oxalate 20 MG TABLET PO (07:40)
[2021-12-15] MEDS: Aspirin 81 MG TAB.CHEW PO (07:40)
[2021-12-15] MEDS: Loratadine 10 MG TABLET PO (07:40)
[2021-12-15] MEDS: Metoprolol Succinate ER 50 MG TAB.ER.24H PO (07:40)
[2021-12-15] MEDS: Insulin Glargine,Hum.rec.anlog 100 UNIT/ML 10 ML VIAL 38 UNIT SUBCUT (07:50)
--- NOTE | 2021-12-15 07:53 | PC.NURSE ---
VSS, pt medicated per OCT. Pt repositioned in the bed by this RN. Pt fed breakfast as well. Resting in hospital bed semi fowlers position. Call parrish within reach.
[2021-12-15 10:09] LABS: Influenza A PCR NEGATIVE (Negative); Influenza B PCR NEGATIVE (Negative); Resp Syncy Virus RNA Qual PCR NEGATIVE (Negative); SARS COV2 PCR INHOUSE NEGATIVE (Negative)
--- NOTE | 2021-12-15 10:18 | MHC.CM.ED ---
[facility] has insurance auth. Patient can leave at 1pm. [facility] booked. Med nec with chart. Patient, Anahi RN and Dr Mcneill aware. Left voicemail for friend/HCP, at [phone], stating insurance auth has been obtained and patient will leave at 1pm. Also asked she provide patient's cpap to facility. Continue to monitor for d/c needs.
[2021-12-15 12:07] VITALS: BP 119/62; PULSE 60; RESP 12; TEMP 36.7; O2SAT 94
[2021-12-15 12:22] LABS: Glucose, Whole Blood 99 mg/dL (60-115)
== END 2021-12-16 06:45 | disposition skilled nursing facility (03) ==
PROVIDERS: Emergency Medicine; Nurse Practitioner Family; Emergency Provider Emergency Medicine Emergency Medical Services; PCP Internal Medicine
DX: S32.019A Unspecified fracture of first lumbar vertebra, initial encounter for closed fracture (principal); S06.9X9A Unspecified intracranial injury with loss of consciousness of unspecified duration, initial encounter; L02.31 Cutaneous abscess of buttock; R41.81 Age-related cognitive decline; G40.909 Epilepsy, unspecified, not intractable, without status epilepticus; G44.309 Post-traumatic headache, unspecified, not intractable; R41.82 Altered mental status, unspecified; I50.9 Heart failure, unspecified; E11.9 Type 2 diabetes mellitus without complications; I10 Essential (primary) hypertension; D69.3 Immune thrombocytopenic purpura; X58.XXXA Exposure to other specified factors, initial encounter; Y93.9 Activity, unspecified; Y92.9 Unspecified place or not applicable; Y99.9 Unspecified external cause status; Z20.822 Contact with and (suspected) exposure to COVID-19; Z79.4 Long term (current) use of insulin; Z79.899 Other long term (current) drug therapy
CPT/HCPCS: 0241U; 10060; 36415; 70450; 71046; 72100; 80053; 81001; 82947; 83735; 84484; 85025; 87071; 87077; 87186; 87205; 93005; 94660; 97162; 99285